=== PATIENT | female | born 1940 | race Caucasian/White ===

== ENCOUNTER → 2017-02-20 | Outpatient (CLI) | payer MEDICARE, OTHER ==
[2017-02-20 14:34] LABS: PROTHROMBIN TIME 12.4 SEC (11.4-15.4)
[2017-02-20 14:35] LABS: ABSOLUTE EOSINOPHILS # (AUTO) 0.1 10^3/uL (0.0-0.6); ABSOLUTE LYMPHOCYTES (AUTO) 1.8 10^3/uL (0.5-4.7); ABSOLUTE MONOCYTES (AUTO) 0.3 10^3/uL (0.1-1.4); BASOPHILS % (AUTO) 0.7 % (0-2); EOSINOPHILS % (AUTO) 1.3 % (0-6); HEMATOCRIT 38.7 % (36.0-47.0); HEMOGLOBIN 12.8 g/dL (12.0-15.5); HGB HCT DIFFERENCE -0.3; LYMPHOCYTES % (AUTO) 34.1 % (13-45); MEAN CORPUSCULAR HEMOGLOBIN 29.1 pg (27.0-33.4); MEAN CORPUSCULAR HGB CONC 33.1 g/dL (32.0-36.0); MEAN CORPUSCULAR VOLUME 88 fl (80-97); MONOCYTES % (AUTO) 5.2 % (3-13); RED CELL DISTRIBUTION WIDTH 14.9 % (11.5-14.0); SEGMENTED NEUTROPHILS % (AUTO) 58.7 % (42-78); WHITE BLOOD COUNT 5.2 10^3/uL (4.0-10.5)
[2017-02-20 14:51] LABS: ANION GAP 12 (5-19); BLOOD UREA NITROGEN 20 mg/dL (7-20); CALCIUM 10.1 mg/dL (8.4-10.2); CARBON DIOXIDE 28 mmol/L (22-30); CHLORIDE 101 mmol/L (98-107); CREATININE RESULT 0.91 mg/dL (0.52-1.25); GLUCOSE 78 mg/dL (75-110); MAGNESIUM 1.7 mg/dL (1.6-2.3); POTASSIUM 4.2 mmol/L (3.6-5.0); SODIUM 141.4 mmol/L (137-145)
== END ==
LOC: OD 13:08
PROVIDERS: ATTEND Internal Medicine Cardiovascular Disease
DX: I65.29 Occlusion and stenosis of unspecified carotid artery (principal)
CPT/HCPCS: 80048; 83735; 85025; 85610

== ENCOUNTER → 2017-03-30 | Outpatient (CLI) | payer MEDICARE, OTHER ==
--- NOTE | 2017-03-30 12:44 | WOMENS IMAGING REPORT ---
EXAM DESCRIPTION: 3D SCREENING MAMMO RIGHT COMPLETED DATE/TIME: 03/30/2017 11:53 am REASON FOR STUDY: 3D ROUTINE SCREENING; Z12.31 Z12.31 ENCNTR SCREEN MAMMOGRAM FOR MALIGNANT NEOPLAS M OF BERTO COMPARISON: Multiple since 2008 TECHNIQUE: Standard craniocaudal and mediolateral oblique views of the right breast recorded using d igital acquisition and breast tomosynthesis. Post left mastectomy in 2004 LIMITATIONS: None. FINDINGS: BREAST: Right No worrisome masses, calcifications or architectural distortion. No areas of suspicion. Benign arter ial vascular calcifications and breast parenchymal calcifications are present. Read with the assistance of CAD. .[facility] - R2 Cenova Version 1.3 .[facility] - R2 Cenova Version 1.3 .[facility] - R2 Cenova Version 2.4 .[facility] - R2 Cenova Version 2.4 .[facility] - R2 [employer] Casting Machine Setup Operator Version 9.2 IMPRESSION: NORMAL MAMMOGRAM. BIRADS 1. BREAST DENSITY: b. There are scattered areas of fibroglandular density. BIRAD: 1 Negative RECOMMENDATION: RECOMMENDATION: ROUTINE SCREENING. Please continue yearly screening tomosynthesis in March 2018 COMMENT: The patient has been notified of the results by letter per MQSA requirements. Additional no tification policies are in place for contacting patient with suspicious or incomplete findings. Quality ID #[id number]: The [employer] recommends an annual screening mammogram for women aged 40 years or over. This facility utilizes a reminder system to ensure that all patients receive reminder letters, and/or direct phone calls for appointments. This includes reminders for routine scr eening mammograms, diagnostic mammograms, or other Breast Imaging Interventions when appropriate. Th is patient will be placed in the appropriate reminder system. The [employer] (ACR) has developed recommendations for screening MRI of the breast s in certain patient populations, to be used in conjunction with mammography. Breast MRI surveillance may be appropriate for women with more than 20% lifetime risk of developing breast cancer as determi hector by genetic testing, significant family history of the disease, or history of mantle radiation for Hodgkins Disease. ACR Practice Guidelines 2008. DBT Technology DBT is a type of tomographic mammography. With conventional mammography, overlapping breast tissue ma y make lesions difficult to detect, even with good compression. DBT uses an x-ray tube that rotates a round the breast, taking images at different angles. These images are then combined to create thin sl ices of the breast that the radiologist can view as a 3D reconstruction. The Hologic unit can perform full-field digital mammograms (2D imaging); or DBT (3D imaging); or both, in a combination mode that quickly performs both the mammogram and the tomosynthesis scan while the breast is still compressed. RS 6045F: Fluoroscopic imaging is not utilized for breast tomosynthesis. TECHNICAL DOCUMENTATION: FINDING NUMBER: (1) ASSESSMENT: (1) JOB ID: [id number] [employer]- All Rights Reserved
== END ==
LOC: WI 11:35
PROVIDERS: ATTEND Internal Medicine Medical Oncology
DX: Z12.31 Encounter for screening mammogram for malignant neoplasm of breast (principal)
CPT/HCPCS: 77063; G0202

== ENCOUNTER 2018-02-12 15:31 | Inpatient (IN) | payer MEDICARE, OTHER ==
[2018-02-12] MEDS ORDERED: NORMAL SALINE 500 ML IV ONE (16:10)
[2018-02-12 16:23] LABS: VENOUS BLOOD BASE EXCESS 0.1 mmol/L; VENOUS BLOOD HCO3 23.6 mmol/L (20-32); VENOUS BLOOD PCO2 34.9 mmHg (35-63); VENOUS BLOOD PH 7.45 (7.30-7.42)
[2018-02-12 16:25] LABS: ABSOLUTE LYMPHOCYTES (AUTO) 0.7 10^3/uL (0.5-4.7); ABSOLUTE MONOCYTES (AUTO) 0.4 10^3/uL (0.1-1.4); ABSOLUTE NEUT (AUTO) 6.6 10^3/uL (1.7-8.2); BASOPHILS % (AUTO) 0.2 % (0-2); EOSINOPHILS % (AUTO) 0.1 % (0-6); HEMOGLOBIN 12.7 g/dL (12.0-15.5); LYMPHOCYTES % (AUTO) 9.3 % (13-45); MEAN CORPUSCULAR HEMOGLOBIN 30.1 pg (27.0-33.4); MEAN CORPUSCULAR HGB CONC 33.4 g/dL (32.0-36.0); MEAN CORPUSCULAR VOLUME 90 fl (80-97); MONOCYTES % (AUTO) 4.6 % (3-13); PLATELET COUNT 141 10^3/uL (150-450); RED BLOOD COUNT 4.21 10^6/uL (3.72-5.28); RED CELL DISTRIBUTION WIDTH 15.6 % (11.5-14.0); SEGMENTED NEUTROPHILS % (AUTO) 85.8 % (42-78); TOTAL CELLS COUNTED % (AUTO) 100 %; WHITE BLOOD COUNT 7.7 10^3/uL (4.0-10.5)
[2018-02-12 16:29] LABS: ALANINE AMINOTRANSFERASE 32 U/L (9-52); ALBUMIN 3.9 g/dL (3.5-5.0); ALKALINE PHOSPHATASE 74 U/L (38-126); ANION GAP 16 (5-19); ASPARTATE AMINO TRANSFERASE 28 U/L (14-36); BILIRUBIN,DIRECT 0.4 mg/dL (0.0-0.4); BILIRUBIN,TOTAL 0.8 mg/dL (0.2-1.3); BLOOD UREA NITROGEN 23 mg/dL (7-20); CALCIUM 9.8 mg/dL (8.4-10.2); CARBON DIOXIDE 24 mmol/L (22-30); CHLORIDE 100 mmol/L (98-107); GLUCOSE 196 mg/dL (75-110); POTASSIUM 3.5 mmol/L (3.6-5.0); SODIUM 140.1 mmol/L (137-145); TOTAL PROTEIN 6.5 g/dL (6.3-8.2)
[2018-02-12] MEDS ORDERED: NORMAL SALINE 1000 ML 1,000 ML IV ONE (16:33)
--- NOTE | 2018-02-12 16:42 | RADIOLOGY REPORT (SQ) ---
EXAM DESCRIPTION: CHEST SINGLE VIEW COMPLETED DATE/TIME: 02/12/2018 4:32 pm REASON FOR STUDY: fever COMPARISON: 11/20/2013 EXAM PARAMETERS: NUMBER OF VIEWS: One view. TECHNIQUE: Single frontal radiographic view of the chest acquired. RADIATION DOSE: NA LIMITATIONS: None. FINDINGS: LUNGS AND PLEURA: No opacities, masses or pneumothorax. No pleural effusion. MEDIASTINUM AND HILAR STRUCTURES: No masses. Contour normal. HEART AND VASCULAR STRUCTURES: Heart normal in size. Normal vasculature. BONES: No acute findings. HARDWARE: None in the chest. OTHER: No other significant finding. IMPRESSION: NO ACUTE RADIOGRAPHIC FINDING IN THE CHEST. TECHNICAL DOCUMENTATION: JOB ID: [id number] [employer]- All Rights Reserved Reading location - IP/workstation name: [email or web address]
[2018-02-12 16:46] LABS: INTERNATIONAL RATION (INR) 0.97; PROTHROMBIN TIME 13.3 SEC (11.4-15.4)
[2018-02-12 16:57] LABS: APPEARANCE,URINE SLIGHTLY-CLOUDY; BILIRUBIN,URINE NEGATIVE (NEGATIVE); COLOR,URINE AMBER; GLUCOSE, URINE NEGATIVE (NEGATIVE); KETONES,URINE NEGATIVE (NEGATIVE); LEUKOCYTE ESTERASE,URINE NEGATIVE (NEGATIVE); NITRITE,URINE NEGATIVE (NEGATIVE); PROTEIN,URINE NEGATIVE (NEGATIVE); URINE SPECIFIC GRAVITY 1.023
[2018-02-12] MEDS ORDERED: IPRATROPIUM/ALBUTEROL 0.5-2.5 MG/3 ML AMPUL NEB ONE (17:48)
[2018-02-12] MEDS ORDERED: LEVOFLOXACIN 500 MG/D5W RTU 500 MG/100 ML RTUPB IV ONE (17:54)
[2018-02-12] MEDS ORDERED: ACETAMINOPHEN 325 MG TABLET PO PRN (18:25)
--- NOTE | 2018-02-12 18:31 | RADIOLOGY REPORT (SQ) ---
EXAM DESCRIPTION: CTA CHEST COMPLETED DATE/TIME: 02/12/2018 6:10 pm REASON FOR STUDY: fever sob requiring o2 COMPARISON: None. TECHNIQUE: CT scan of the chest performed using helical scanning technique with dynamic intravenous contrast injection. Images reviewed with lung, soft tissue and bone windows. Reconstructed coronal and sagittal MPR images reviewed. Additional 3 dimensional post-processing performed to develop Maximal Intensity Projection images ([place] P). All images stored on PACS. All CT scanners at this facility use dose modulation, iterative reconstruction, and/or weight based d osing when appropriate to reduce radiation dose to as low as reasonably achievable (ALARA). [facility]: Dose Right [facility]: CareDose [facility]: Dose Right [facility]: Teradose 4D [facility]: SEVENROOMS CONTRAST TYPE AND DOSE: contrast/concentration: Isovue 370.00 mg/ml; Total Contrast Delivered: 77.0 ml; Total Saline Delivered: 80.0 ml 77 mL Isovue 370- low osmolar. Contrast bolus adequate for pulmonary arteries and aorta. RENAL FUNCTION: Creatinine 0.88 RADIATION DOSE: CT Rad equipment meets quality standard of care and radiation dose reduction techniq ues were employed. CTDIvol: 22.7 - 33.1 mGy. DLP: 807 mGy-cm. . LIMITATIONS: None. FINDINGS: LUNGS AND PLEURA: Minimal right upper lobe atelectasis. Dependent atelectasis. Minimal l eft upper lobe opacity -probably chronic. No masses. No pleural effusions. Mild to moderate emphys ematous change predominately upper lobes. AORTA AND GREAT VESSELS: No aneurysm. No dissection. HEART: No pericardial effusion. No significant coronary artery calcifications. PULMONARY ARTERIES: No emboli visualized in the main pulmonary arteries or the segmental branches. HILAR AND MEDIASTINAL STRUCTURES: No identified masses or abnormal nodes. HARDWARE: None in the chest. UPPER ABDOMEN: Small right adrenal mass -probably adenoma. THYROID AND OTHER SOFT TISSUES: Asymmetrical enlargement of the right lobe. Possible nodule. BONES: No acute or significant finding. 3D MIPS: Confirm above findings. OTHER: Status post left mastectomy. IMPRESSION: No pulmonary emboli or aortic aneurysm. Minimal pulmonary changes as described above. Mild to moderate emphysematous change. COMMENT: Quality ID # [id number]: Final reports with documentation of one or more dose reduction techniques (e.g., Automated exposure control, adjustment of the mA and/or kV according to patient size, use of iterative reconstruction technique) TECHNICAL DOCUMENTATION: JOB ID: [id number] [employer]- All Rights Reserved Reading location - IP/workstation name: [email or web address]
--- NOTE | 2018-02-12 18:40 | ER Document Report ---
ED General - General Chief Complaint: Fever Stated Complaint: FEVER/WEAKNESS Time Seen by Provider: 02/12/18 15:56 TRAVEL OUTSIDE OF THE [place] IN LAST 30 DAYS: No - HPI Patient complains to provider of: Fever weakness shortness of breath Notes: Patient coming in for fever weakness shortness of breath. Patient states symptoms ongoing for greater than a week patient feels like she is congested in her chest called EMS today upon EMS arrival was found to have temperature greater than 102 was given Tylenol transferred to the ER for further evaluation patient denies being evaluated by her primary care physician for this patient denies any smoking however states that she used to smoke for approximately 30- 40 years. Patient does deny any history of COPD or asthma to myself. Patient says she has been having some night sweats. No recent travel no recent trauma. When off oxygen patient's oxygen saturation is 8788%. With 2 L of oxygen and this does improve to 95%. - Related Data Allergies/Adverse Reactions: No Known Drug Allergies Allergy (Verified 02/12/18 16:26) surgical tape Allergy (Severe, Uncoded 02/12/18 16:26) blisters,pulls skin off Past Medical History - Social History Smoking Status: Former Smoker Frequency of alcohol use: None Drug Abuse: None Family History: Reviewed & Not Pertinent Patient has suicidal ideation: No Patient has homicidal ideation: No - Past Medical History Cardiac Medical History: Reports: Hx Hypercholesterolemia, Hx Hypertension Denies: Hx Atrial Fibrillation, Hx Congestive Heart Failure, Hx Coronary Artery Disease, Hx Heart Attack, Hx Peripheral Vascular Disease, Hx Pulmonary Embolism, Hx Heart Murmur Pulmonary Medical History: Denies: Hx Asthma, Hx Bronchitis, Hx COPD, Hx Pneumonia, Hx Respiratory Failure, Hx Sleep Apnea, Hx Tuberculosis Neurological Medical History: Denies: Hx Cerebrovascular Accident, Hx Seizures Endocrine Medical History: Denies: Hx Graves' Disease, Hx Hyperthyroidism, Hx Hypothyroidism Renal/ Medical History: Denies: Hx Ovarian Cysts, Hx Peritoneal Dialysis, Hx Pelvic Inflammatory Disease Malignancy Medical History: Reports: Hx Breast Cancer - lt masectomy NO IV BP LEFT arm. Denies: Hx Cervical Cancer, Hx Leukemia, Hx Lung Cancer, Hx Ovarian Cancer GI Medical History: Denies: Hx Crohn's Disease, Hx Gastroesophageal Reflux Disease, Hx Hiatal Hernia, Hx Irritable Bowel, Hx Liver Failure, Hx Pancreatitis , Hx Ulcer Musculoskeltal Medical History: Reports Hx Arthritis - all joints, Denies Hx Fibromyalgia, Denies Hx Muscular Dystrophy Psychiatric Medical History: Denies: Hx Bipolar Disorder, Hx Depression, Hx Post Traumatic Stress Disorder , Hx Schizophrenia Traumatic Medical History: Denies: Hx Fractures Infectious Medical History: Denies: Hx HIV Past Surgical History: Reports: Hx Cholecystectomy, Hx Mastectomy - left, Hx Orthopedic Surgery - b/l knees, back surgery. Denies: Hx Appendectomy, Hx Bowel Surgery, Hx Section, Hx Colostomy, Hx Coronary Artery Bypass Graft, Hx Gastric Bypass Surgery, Hx Herniorrhaphy, Hx Hysterectomy, Hx Pacemaker, Hx Tonsillectomy, Hx Tubal Ligation - Immunizations Hx Diphtheria, Pertussis, Tetanus Vaccination: - unsure Hx Pneumococcal Vaccination: 08/27/05 Review of Systems - Review of Systems Constitutional: Fever, Weakness EENT: No symptoms reported Cardiovascular: No symptoms reported Respiratory: Cough, Short of breath, Sputum Gastrointestinal: No symptoms reported Genitourinary: No symptoms reported Female Genitourinary: No symptoms reported Musculoskeletal: No symptoms reported Skin: No symptoms reported Hematologic/Lymphatic: No symptoms reported Neurological/Psychological: No symptoms reported -: Yes All other systems reviewed and negative Physical Exam - Vital signs Vitals: Temp Pulse Resp BP Pulse Ox 100.0 F 112 H 20 112/62 91 L 02/12/18 15:34 02/12/18 15:34 02/12/18 15:34 02/12/18 15:34 02/12/18 15:34 Interpretation: Tachycardic - General General appearance: Appears well, Alert - HEENT Head: Normocephalic, Atraumatic Eyes: Normal Pupils: PERRL - Respiratory Respiratory status: No respiratory distress Chest status: Nontender Breath sounds: Rhonchi, Wheezing Chest palpation: Normal - Cardiovascular Rhythm: Regular Heart sounds: Normal auscultation Murmur: No - Abdominal Inspection: Normal Distension: No distension Bowel sounds: Normal Tenderness: Nontender Organomegaly: No organomegaly - Back Back: Normal, Nontender - Extremities General upper extremity: Normal inspection, Nontender, Normal color, Normal ROM , Normal temperature General lower extremity: Normal inspection, Nontender, Normal color, Normal ROM , Normal temperature, Normal weight bearing. No: Rosa's sign - Neurological Neuro grossly intact: Yes Cognition: Normal Orientation: AAOx4 Ashly Coma Scale Eye Opening: Spontaneous Ashly Coma Scale Verbal: Oriented [place] Coma Scale Motor: Obeys Commands Ashly Coma Scale Total: 15 Speech: Normal Motor strength normal: LUE, RUE, LLE, RLE Sensory: Normal - Psychological Associated symptoms: Normal affect, Normal mood - Skin Skin Temperature: Warm Skin Moisture: Dry Skin Color: Normal Course - Re-evaluation Re-evalutation: 02/12/18 22:40 Temperature did approve here in ER. Patient continued to require 2 L of oxygen to keep her oxygen saturation above 90%. Concern for underlying pneumonia although the patient does not have a white count and patient did not have any signs of this on a chest x-ray did move forward with admission to the hospital CTA was also obtained showing no signs of pulmonary emboli but also infiltrates / opacities acute versus chronic - Vital Signs Vital signs: Temp Pulse Resp BP Pulse Ox 100.0 F 112 H 16 147/54 H 96 02/12/18 15:34 02/12/18 15:34 02/12/18 21:00 02/12/18 19:38 02/12/18 21:00 - Laboratory Result Diagrams: 02/12/18 15:44 02/12/18 15:44 Laboratory results interpreted by me: 02/12/18 02/12/18 02/12/18 15:44 15:44 15:44 RDW 15.6 H Plt Count 141 L Seg Neutrophils % 85.8 H Lymphocytes % 9.3 L VBG pH VBG pCO2 Potassium 3.5 L BUN 23 H Glucose 196 H POC Glucose Lactic Acid 3.6 H Urine Blood Urine Urobilinogen 02/12/18 02/12/18 02/12/18 15:44 16:19 16:34 RDW Plt Count Seg Neutrophils % Lymphocytes % VBG pH 7.45 H VBG pCO2 34.9 L Potassium BUN Glucose POC Glucose 185 H Lactic Acid Urine Blood SMALL H Urine Urobilinogen 2.0 H Discharge - Discharge Clinical Impression: Hypoxemia, Elevated lactic acid level Fever Qualifiers: Fever type: unspecified Qualified Code(s): R50.9 - Fever, unspecified Pneumonia Qualifiers: Pneumonia type: due to unspecified organism Laterality: unspecified laterality Lung location: unspecified part of lung Qualified Code(s): J18.9 - Pneumonia, unspecified organism Condition: Good Disposition: ADMITTED OBSERVATION Admitting Provider: [facility] Unit Admitted: Medical Floor Referrals: CLARITZA NAILS MD [Primary Care Provider] - Follow up as needed
--- NOTE | 2018-02-12 18:47 | PDOC H&P ---
History of Present Illness Admission Date/PCP: CLARITZA NAILS MD Patient complains of: Nonproductive cough and fever History of Present Illness: SAVANNAH BOLDEN is a 77 year old female Past Medical History Cardiac Medical History: Reports: Hyperlipidema, Hypertension Denies: Atrial Fibrillation, Congestive Heart Failure, Coronary Artery Disease, Myocardial Infarction, Peripheral Vascular Disease, Pulmonary Embolism , Heart Murmur Pulmonary Medical History: Denies: Asthma, Bronchitis, Chronic Obstructive Pulmonary Disease (COPD), Pneumonia, Respiratory Failure, Sleep Apnea, Tuberculosis Neurological Medical History: Denies: Seizures Endocrine Medical History: Denies: Hyperthyroidism, Hypothyroidism Malignancy Medical History: Reports: Breast Cancer - lt masectomy NO IV BP LEFT arm Denies: Cervical Cancer, Leukemia, Lung Cancer, Ovarian Cancer GI Medical History: Denies: Crohn's Disease, Gastroesophageal Reflux Disease, Hiatal Hernia Musculoskeltal Medical History: Reports: Arthritis - all joints Denies: Fibromyalgia Psychiatric Medical History: Denies: Bipolar Disorder, Depression, Post Traumatic Stress Disorder Hematology: Denies: Anemia, Hemophilia, Sickle Cell Disease Infectious Medical History: Denies: HIV Past Surgical History Past Surgical History: Reports: Cholecystectomy, Mastectomy - left, Orthopedic Surgery - b/l knees, back surgery Denies: Amputation, Appendectomy, Section, Colostomy, Coronary Artery Bypass Graft, Gastric Bypass Surgery, Herniorrhaphy, Hysterectomy, Pacemaker, Tonsillectomy, Tubal Ligation Social History Smoking Status: Former Smoker Hx Recreational Drug Use: No Hx Prescription Drug Abuse: No Family History Family History: Other - Noncontributory Parental Family History Reviewed: Yes - Noncontributory Children Family History Reviewed: Yes - Noncontributory Sibling(s) Family History Reviewed.: Yes - Noncontributory Medication/Allergy Allergies/Adverse Reactions: No Known Drug Allergies Allergy (Verified 02/12/18 16:26) surgical tape Allergy (Severe, Uncoded 02/12/18 16:26) blisters,pulls skin off Review of Systems Review of Systems: 10 point review of systems is conducted with the patient was negative except as noted in HPI Physical Exam Vital Signs: Temp Pulse Resp BP Pulse Ox 100.0 F 112 H 13 125/58 L 95 02/12/18 15:34 02/12/18 15:34 02/12/18 18:11 02/12/18 17:01 06/19/18 18:11 Intake & Output 02/11/18 02/12/18 02/13/18 06:59 06:59 06:59 Weight 90.718 kg General appearance: PRESENT: no acute distress, cooperative, disheveled, obese Head exam: PRESENT: atraumatic, normocephalic Mouth exam: PRESENT: moist, neck supple, tongue midline Throat exam: ABSENT: post pharyngeal erythema, tonsillar erythema, tonsillar exudate Neck exam: PRESENT: full ROM. ABSENT: carotid bruit, JVD, lymphadenopathy, tenderness, thyromegaly Respiratory exam: PRESENT: clear to auscultation herminia, unlabored. ABSENT: accessory muscle use, chest wall tenderness, crackles, rales, rhonchi, wheezes Cardiovascular exam: PRESENT: RRR. ABSENT: clicks, diastolic murmur, gallop, systolic murmur Pulses: PRESENT: normal carotid pulses, normal radial pulses, normal dorsalis pedis pul Vascular exam: PRESENT: normal capillary refill GI/Abdominal exam: PRESENT: normal bowel sounds, soft. ABSENT: ascites, distended, guarding, rebound, tenderness Rectal exam: PRESENT: deferred Extremities exam: ABSENT: pedal edema Musculoskeletal exam: PRESENT: full ROM, normal inspection. ABSENT: deformity Neurological exam: PRESENT: alert, awake, oriented to person, oriented to place , oriented to time, CN II-XII grossly intact Psychiatric exam: PRESENT: appropriate affect, normal mood Skin exam: PRESENT: dry, warm Results Laboratory Results: 02/12/18 15:44 02/12/18 15:44 02/12/18 02/12/18 02/12/18 15:44 15:44 15:44 WBC 7.7 RBC 4.21 Hgb 12.7 Hct 38.0 MCV 90 MCH 30.1 MCHC 33.4 RDW 15.6 H Plt Count 141 L Seg Neutrophils % 85.8 H Lymphocytes % 9.3 L Monocytes % 4.6 Eosinophils % 0.1 Basophils % 0.2 Absolute Neutrophils 6.6 Absolute Lymphocytes 0.7 Absolute Monocytes 0.4 Absolute Eosinophils 0.0 Absolute Basophils 0.0 VBG pH VBG pCO2 VBG HCO3 VBG Base Excess Sodium 140.1 Potassium 3.5 L Chloride 100 Carbon Dioxide 24 Anion Gap 16 BUN 23 H Creatinine 0.88 Est GFR ( Amer) > 60 Est GFR (Non-Af Amer) > 60 Glucose 196 H Lactic Acid 3.6 H Calcium 9.8 Total Bilirubin 0.8 AST 28 ALT 32 Alkaline Phosphatase 74 Total Protein 6.5 Albumin 3.9 Urine Color Urine Appearance Urine pH Ur Specific [place] Urine Protein Urine Glucose (UA) Urine Ketones Urine Blood Urine Nitrite Ur Leukocyte Esterase Urine WBC (Auto) Urine RBC (Auto) 02/12/18 02/12/18 15:44 16:34 WBC RBC Hgb Hct MCV MCH MCHC RDW Plt Count Seg Neutrophils % Lymphocytes % Monocytes % Eosinophils % Basophils % Absolute Neutrophils Absolute Lymphocytes Absolute Monocytes Absolute Eosinophils Absolute Basophils VBG pH 7.45 H VBG pCO2 34.9 L VBG HCO3 23.6 VBG Base Excess 0.1 Sodium Potassium Chloride Carbon Dioxide Anion Gap BUN Creatinine Est GFR ( Amer) Est GFR (Non-Af Amer) Glucose Lactic Acid Calcium Total Bilirubin AST ALT Alkaline Phosphatase Total Protein Albumin Urine Color PAIGE Urine Appearance SLIGHTLY-CLOUDY Urine pH 5.0 Ur Specific [place] 1.023 Urine Protein NEGATIVE Urine Glucose (UA) NEGATIVE Urine Ketones NEGATIVE Urine Blood SMALL H Urine Nitrite NEGATIVE Ur Leukocyte Esterase NEGATIVE Urine WBC (Auto) 1 Urine RBC (Auto) 5 02/12/18 02/12/18 15:44 15:44 Creatine Kinase 89 Troponin I < 0.012 Impressions: Chest X-Ray 02/12/18 15:59 IMPRESSION: NO ACUTE RADIOGRAPHIC FINDING IN THE CHEST. Chest/Abdomen CTA 02/12/18 17:47 IMPRESSION: No pulmonary emboli or aortic aneurysm. Minimal pulmonary changes as described above. Mild to moderate emphysematous change. Assessment & Plan - Diagnosis (1) Sepsis Qualifiers: Sepsis type: sepsis due to unspecified organism Qualified Code(s): A41.9 - Sepsis, unspecified organism Is this a current diagnosis for this admission?: Yes Plan: IV fluid support. Hemodynamics are stable. Antibiotics have been started. We will watch her on telemetry. (2) Pneumonia Qualifiers: Pneumonia type: due to unspecified organism Lung location: unspecified part of lung Is this a current diagnosis for this admission?: Yes Plan: Blood cultures pending. Levaquin started. (3) Hypoxemia Is this a current diagnosis for this admission?: Yes Plan: She had one low SPO2 of 87%. I think that this is essentially resolved. She was 98% on 2 L and talking freely and easily whenever I saw her. We will wean her oxygen and see how she does later on this evening. - Time Time Spent: 50 to 70 Minutes Medications reviewed and adjusted accordingly: Yes Anticipated discharge: Home Within: within 48 hours - Inpatient Certification Based on my medical assessment, after consideration of the patient's comorbidities, presenting symptoms, or acuity I expect that the services needed warrant INPATIENT care.: Yes I certify that my determination is in accordance with my understanding of Medicare's requirements for reasonable and necessary INPATIENT services [42 CFR 412.3e].: Yes Medical Necessity: Need Close Monitoring Due to Risk of Patient Decompensation
[2018-02-12] MEDS ORDERED: ENOXAPARIN SODIUM INJ 40 MG/0.4 ML DISP.SYRIN SUBCUT ONE (20:00)
[2018-02-12] MEDS ORDERED: ATORVASTATIN CALCIUM 20 MG TABLET PO SCH (22:00)
--- NOTE | 2018-02-12 22:54 | EKG REPORT ---
SEVERITY:- OTHERWISE NORMAL ECG - SINUS TACHYCARDIA : Confirmed by: Diane Sandhu 12-Feb-2018 22:54:13
[2018-02-12] MEDS: FAMOTIDINE 20 MG TABLET PO SCH (23:04)
[2018-02-12] MEDS: GUAIFENESIN 600 MG TABLET.SA PO SCH (23:06)
[2018-02-13 05:20] LABS: HEMATOCRIT 34.6 % (36.0-47.0); HEMOGLOBIN 11.6 g/dL (12.0-15.5); MEAN CORPUSCULAR HEMOGLOBIN 30.5 pg (27.0-33.4); MEAN CORPUSCULAR HGB CONC 33.6 g/dL (32.0-36.0); MEAN CORPUSCULAR VOLUME 91 fl (80-97); PLATELET COUNT 115 10^3/uL (150-450); RED BLOOD COUNT 3.81 10^6/uL (3.72-5.28); RED CELL DISTRIBUTION WIDTH 15.6 % (11.5-14.0)
[2018-02-13 05:43] LABS: ANION GAP 10 (5-19); BLOOD UREA NITROGEN 20 mg/dL (7-20); CALCIUM 9.4 mg/dL (8.4-10.2); CARBON DIOXIDE 27 mmol/L (22-30); CHLORIDE 105 mmol/L (98-107); GLUCOSE 121 mg/dL (75-110); POTASSIUM 3.3 mmol/L (3.6-5.0); SODIUM 142.2 mmol/L (137-145)
[2018-02-13] MEDS ORDERED: GLIMEPIRIDE 1 MG TABLET PO SCH (08:00)
[2018-02-13] MEDS: FAMOTIDINE 20 MG TABLET PO SCH (09:20)
[2018-02-13] MEDS: CALCIUM CARBONATE 250 MG/VITAMIN D3 125 UNIT TABLET PO SCH ×2 (09:20→17:28)
[2018-02-13] MEDS: GUAIFENESIN 600 MG TABLET.SA PO SCH (09:20)
[2018-02-13] MEDS: METFORMIN HCL 500 MG TABLET PO SCH ×2 (09:20→17:28)
[2018-02-13] MEDS ORDERED: ENOXAPARIN SODIUM INJ 40 MG/0.4 ML DISP.SYRIN SUBCUT SCH (10:00)
[2018-02-13] MEDS ORDERED: (PENDING PHARMACY ID) (Calcium Carbonate/Vitamin D3 [Calcium 600-Vit D3 200 Tablet] 1 EACH PO SCH (10:00)
[2018-02-13] MEDS ORDERED: LEVOFLOXACIN 750 MG TABLET PO SCH (10:00)
[2018-02-13] MEDS ORDERED: ASPIRIN 81 MG TABLET, ENT COATED PO SCH (10:00)
[2018-02-13 12:02] VITALS: BP 153/79
--- NOTE | 2018-02-13 20:07 | PDOC DISCHARGE SUMMARY ---
General - Admit/Disc Date/PCP Admission Date/Primary Care Provider: 02/12/18 19:02 CLARITZA NAILS MD Discharge Date: 02/13/18 - Discharge Diagnosis (1) Sepsis Is this a current diagnosis for this admission?: Yes Summary: She had a fever and some tachypnea whenever she came in. This resolved very quickly. (2) Pneumonia Is this a current diagnosis for this admission?: Yes Summary: She was placed on oral Levaquin and she was afebrile after she initially presented to the hospital. She will continue course of Levaquin as an outpatient. (3) Hypoxemia Is this a current diagnosis for this admission?: Yes Summary: This promptly resolved. She had one hypoxemic episode in the ER and we took her off oxygen this morning and she did a 6 minute walk in her pulse was in the 80s while walking and her SPO2 was 94-95% also while walking. - Additional Information Discharge Diet: Other (Comments) Discharge Activity: Activity As Tolerated Prescriptions: Levofloxacin [Levaquin 750 mg Tablet] 750 mg PO DAILY #5 tablet Home Medications: Aspirin [Aspirin 81 mg Chewable Tablet] 81 mg PO DAILY 02/12/18 Calcium Carbonate/Vitamin D3 [Calcium 600-Vit D3 800 Tablet] 1 tab PO BID Carvedilol [Coreg 6.25 mg Tablet] 6.25 mg PO Q12 02/12/18 Gabapentin [Neurontin] 800 mg PO Q8 02/12/18 Glimepiride [Amaryl 1 mg Tablet] 1 mg PO QAM 02/12/18 Isosorbide Mononitrate [Isosorbide Mononitrate ER] 30 mg PO DAILY 02/12/18 Meloxicam [Mobic] 15 mg PO DAILYP PRN 02/12/18 Metformin HCl [Glucophage 500 mg Tablet] 1,000 mg PO BIDACBS 02/12/18 Multivitamin [Multiple Vitamins] 1 tab PO DAILY 02/12/18 Nifedipine [Nifedipine ER] 30 mg PO DAILY 02/12/18 Pravastatin Sodium [Pravachol] 80 mg PO QHS 02/12/18 Telmisartan/Hydrochlorothiazid [Telmisartan-Hctz 80-25 mg Tab] 1 tab PO DAILY Guaifenesin [Mucinex Sr 600 mg Tablet.sa] 600 mg PO Q12 tablet.sa 02/13/18 Levofloxacin [Levaquin 750 mg Tablet] 750 mg PO DAILY #5 tablet 02/13/18 History of Present Illness History of Present Illness: SAVANNAH BOLDEN is a 77 year old female Hospital Course Hospital Course: She was admitted and placed on oral Levaquin. She had a dose of some IV antibiotics in the emergency department prior to that. She progressed rather well. She was able to ambulate in the hallway and she did not get hypoxemic or dyspneic. She will complete a course of oral antibiotics at home. Her labs and examination was reassuring and she was discharged home today in good condition. Physical Exam Vital Signs: Temp Pulse Resp BP Pulse Ox 98.1 F 73 18 153/79 H 98 02/13/18 17:59 02/13/18 17:59 02/13/18 17:59 02/13/18 17:59 02/13/18 17:59 Intake & Output 02/12/18 02/13/18 02/14/18 06:59 06:59 06:59 Intake Total 10 Output Total 2 Balance -2 10 Weight 88.9 kg General appearance: PRESENT: no acute distress, well-developed, well-nourished Respiratory exam: PRESENT: clear to auscultation herminia. ABSENT: rales, rhonchi, wheezes Cardiovascular exam: PRESENT: RRR. ABSENT: diastolic murmur, rubs, systolic murmur GI/Abdominal exam: PRESENT: normal bowel sounds, soft. ABSENT: distended, guarding, mass, organolmegaly, rebound, tenderness Extremities exam: PRESENT: full ROM. ABSENT: calf tenderness, clubbing, pedal edema Neurological exam: PRESENT: alert, awake, oriented to person, oriented to place , oriented to time Results Laboratory Results: 02/13/18 05:05 02/13/18 05:05 02/12/18 02/13/18 02/13/18 20:08 05:05 05:05 WBC 7.0 RBC 3.81 Hgb 11.6 L Hct 34.6 L MCV 91 MCH 30.5 MCHC 33.6 RDW 15.6 H Plt Count 115 L Sodium 142.2 Potassium 3.3 L Chloride 105 Carbon Dioxide 27 Anion Gap 10 BUN 20 Creatinine 0.79 Est GFR ( Amer) > 60 Est GFR (Non-Af Amer) > 60 Glucose 121 H Lactic Acid 1.8 Calcium 9.4 Impressions: Chest X-Ray 02/12/18 15:59 IMPRESSION: NO ACUTE RADIOGRAPHIC FINDING IN THE CHEST. Chest/Abdomen CTA 02/12/18 17:47 IMPRESSION: No pulmonary emboli or aortic aneurysm. Minimal pulmonary changes as described above. Mild to moderate emphysematous change. Qualifiers - * PATIENT BEING DISCHARGED WITH ANY OF THE FOLLOWING DIAGNOSIS: No
--- NOTE | 2018-02-14 12:16 | Physician Advisory Note ---
Physician Advisor ProgressNote .: Pursuant to the plan for [facility], I have reviewed the medical record for this patient. Physician Advisor Statement: Please consider documenting, if you agree: 1. "possible sepsis, DUE TO , evidenced by " - or "sepsis suspected initially but ruled out"? (See below, under line.) - pt had initial temp 102 for EMS, weakness, tachycardia, lactate 3.6, plts <150, (+)hypoxemia; lowest MAP=78. 2. "probable acute pneumonia, suspect gram-____ type, evidenced by " (Also, please explain why you feel PNA (as opposed to other process such as "acute bronchitis") was present despite no leukocytosis and CT report reading that the ANN "opacity" was "probably chronic", because payers like to point to info such as this & say they don't think pt was proved to have PNA after all, especially since in this sort of case, an attending is unlikely to repeat CXR/CT to "confirm" the clinical dx with pt improving.) - Supporting findings noted so far in chart include cough, SOB, T 102 for EMS, weakness, tachycardia, some tachypnea, persistent hypoxemia; (+) crackles, (+) JAVIER, orthopnea, nausea, & diarrhea per nursing notes (GI sx such as N/V/D are common with PNA). - Clinical picture consistent with acute process. Elderly pts don't always mount a leukocytosis. 3. "mild-mod emphysema, by CT" 4. What was most likely cause(s) of the hypoxemia? (sepsis, or PNA, or emphysema, or acute bronchitis, or ...? 5. "At time of adm, we really felt this pt was going to need at least 2 MNs in hospital due to [suspected sepsis & PNA with underlying emphysema & acute hypoxemia ...?]", and "I was very surprised that pt improved as quickly as she did & was ready for d/c after just 1 MN" (As long as these statements are correct, it is important to state them explicitly in Medicare pts who are brought in as Inpatients but d/c'd after 1MN in hospital; otherwise, Medicare will dispute that they were initially sick enough to be Inpatients.) Thanks so much for your time and help! CK *Sepsis: documentation, treatment, & course should support sepsis diagnosis when it's "ruled in": - Pt should look toxic/acutely sick initially & this be documented; this pt was documented to have "hemodynamics stable" per H&P. - If pt survives and goes home within 2 days, dx of sepsis may not be valid after all, even though it was important to consider it.
== END 2018-02-13 18:44 | disposition home or self-care (01) | DRG 871 ==
LOC: ER 15:31 → OBSVTOIN 19:02 → EH 19:02 → 5 22:46
PROVIDERS: ADMIT Family Medicine; ATTEND Family Medicine
DX: A41.9 Sepsis, unspecified organism (principal); J18.9 Pneumonia, unspecified organism; R09.02 Hypoxemia; E78.00 Pure hypercholesterolemia, unspecified; I10 Essential (primary) hypertension; Z85.3 Personal history of malignant neoplasm of breast
CPT/HCPCS: 36415; 71045; 71275; 80048; 80053; 81001; 82550; 82803; 82962; 83605; 84484; 85025; 85027; 85610; 87040; 87077; 87086; 93005; 93010; 94640; 96361; 96374; 99285; J1650; J1956; J3490; J7030; J7040; J7620

== ENCOUNTER → 2018-04-01 | Outpatient (CLI) | payer MEDICARE, OTHER ==
--- NOTE | 2018-04-01 15:25 | WOMENS IMAGING REPORT ---
EXAM DESCRIPTION: 3D SCREENING MAMMO RIGHT COMPLETED DATE/TIME: 04/01/2018 11:01 am REASON FOR STUDY: SCREENING MAMMO Z12.31 ENCNTR SCREEN MAMMOGRAM FOR MALIGNANT NEOPLASM OF BERTO COMPARISON: Multiple since 2008 TECHNIQUE: Standard craniocaudal and mediolateral oblique views of the right breast recorded using d igital acquisition and breast tomosynthesis. Post left mastectomy in 2004 LIMITATIONS: None. FINDINGS: BREAST: Right No masses, calcifications or architectural distortion. No areas of suspicion. Benign breast parenchy mal and arterial vascular calcifications are present, stable. Read with the assistance of CAD. .[facility] - R2 Cenova Version 1.3 .[facility] - R2 Cenova Version 1.3 .[facility] - R2 Cenova Version 2.4 .[facility] - R2 Cenova Version 2.4 .[facility] - R2 Marble Cutter Version 9.2 IMPRESSION: NORMAL MAMMOGRAM. BIRADS 1. BREAST DENSITY: b. There are scattered areas of fibroglandular density. BIRAD: 1 Negative RECOMMENDATION: RECOMMENDATION: ROUTINE SCREENING. COMMENT: The patient has been notified of the results by letter per SA requirements. Additional no tification policies are in place for contacting patient with suspicious or incomplete findings. Quality ID #[id number]: The [employer] [place] recommends an annual screening mammogram for women aged 40 years or over. This facility utilizes a reminder system to ensure that all patients receive reminder letters, and/or direct phone calls for appointments. This includes reminders for routine scr eening mammograms, diagnostic mammograms, or other Breast Imaging Interventions when appropriate. Th is patient will be placed in the appropriate reminder system. The [employer] [place] [employer] (ACR) has developed recommendations for screening MRI of the breast s in certain patient populations, to be used in conjunction with mammography. Breast MRI surveillance may be appropriate for women with more than 20% lifetime risk of developing breast cancer as determi hector by genetic testing, significant family history of the disease, or history of mantle radiation for Hodgkins Disease. ACR Practice Guidelines 2008. DBT Technology DBT is a type of tomographic mammography. With conventional mammography, overlapping breast tissue ma y make lesions difficult to detect, even with good compression. DBT uses an x-ray tube that rotates a round the breast, taking images at different angles. These images are then combined to create thin sl ices of the breast that the radiologist can view as a 3D reconstruction. The Face to Face Live unit can perform full-field digital mammograms (2D imaging); or DBT (3D imaging); or both, in a combination mode that quickly performs both the mammogram and the tomosynthesis scan while the breast is still compressed. PQRS 6045F: Fluoroscopic imaging is not utilized for breast tomosynthesis. TECHNICAL DOCUMENTATION: FINDING NUMBER: (1) ASSESSMENT: (1) JOB ID: [id number]- All Rights Reserved Reading location - IP/workstation name: [email or web address]
== END ==
LOC: WI 10:37
PROVIDERS: ATTEND Internal Medicine Medical Oncology
DX: Z12.31 Encounter for screening mammogram for malignant neoplasm of breast (principal)

== ENCOUNTER 2018-04-04 18:55 | Inpatient (IN) | payer MEDICARE, OTHER ==
[2018-04-04] MEDS ORDERED: RINGERS SOLUTION,LACTATED 1,000 ML IV ONE (19:32)
[2018-04-04] MEDS ORDERED: METRONIDAZOLE 500 MG/NS RTU 500 MG/100 ML RTUPB IV ONE (19:32)
--- NOTE | 2018-04-04 19:38 | ER Document Report ---
ED Medical Screen (RME) - General Chief Complaint: Abdominal Pain >50 Stated Complaint: ABDOMINAL PAIN Time Seen by Provider: 04/04/18 19:17 Mode of Arrival: Wheelchair Information source: Patient Notes: Patient is a 77-year-old female who presents to the emergency department today after having an outpatient CT abdomen pelvis with IV and oral contrast performed. This was ordered by Dr. Nails. Radiologist is reading the CT as appendicitis. Patient reports that she has been having right lower quadrant abdominal pain for 2 weeks. Patient reports the pain is worse when she lies down. Patient describes the pain as sharp stabbing pain. Patient reports associated nausea, denies any vomiting or fevers. Patient also reports decreased appetite. Patient has past medical history of hypertension, non- insulin-dependent diabetes, breast cancer with a left sided mastectomy. Patient also reports a history of myocardial infarction one year ago while she was in the PACU recovering from back surgery. Patient reports this was at [facility]. I did consult the on-call surgeon Dr. Crump who advises that he will need hospitalist and cardiology consulted on this patient. I will initiate orders up front to include lab workup, initial cardiac workup, IV fluids and antibiotics. Exam: Point tenderness to palpation to right lower quadrant, no rebound. I have greeted and performed a rapid initial assessment of this patient. A comprehensive ED assessment and evaluation of the patient, analysis of test results and completion of the medical decision making process will be conducted by additional ED providers. Dictation of this chart was performed using voice recognition software; therefore, there may be some unintended grammatical errors. TRAVEL OUTSIDE OF THE [place] IN LAST 30 DAYS: No - Related Data Allergies/Adverse Reactions: No Known Drug Allergies Allergy (Verified 04/04/18 18:55) surgical tape Allergy (Severe, Uncoded 04/04/18 18:55) blisters,pulls skin off Past Medical History - Social History Chew tobacco use (# tins/day): No Frequency of alcohol use: None - Past Medical History Cardiac Medical History: Reports: Hx Heart Attack, Hx Hypercholesterolemia, Hx Hypertension Denies: Hx Atrial Fibrillation, Hx Congestive Heart Failure, Hx Coronary Artery Disease, Hx Peripheral Vascular Disease, Hx Pulmonary Embolism, Hx Heart Murmur Pulmonary Medical History: Denies: Hx Asthma, Hx Bronchitis, Hx COPD, Hx Pneumonia, Hx Respiratory Failure, Hx Sleep Apnea, Hx Tuberculosis Neurological Medical History: Denies: Hx Cerebrovascular Accident, Hx Seizures Endocrine Medical History: Reports: Hx Diabetes Mellitus Type 2. Denies: Hx Graves' Disease, Hx Hyperthyroidism, Hx Hypothyroidism Renal/ Medical History: Denies: Hx Ovarian Cysts, Hx Peritoneal Dialysis, Hx Pelvic Inflammatory Disease Malignancy Medical History: Reports: Hx Breast Cancer - lt masectomy NO IV BP LEFT arm. Denies: Hx Cervical Cancer, Hx Leukemia, Hx Lung Cancer, Hx Ovarian Cancer GI Medical History: Denies: Hx Crohn's Disease, Hx Gastroesophageal Reflux Disease, Hx Hiatal Hernia, Hx Irritable Bowel, Hx Liver Failure, Hx Pancreatitis , Hx Ulcer Musculoskeltal Medical History: Reports Hx Arthritis - all joints, Denies Hx Fibromyalgia, Denies Hx Muscular Dystrophy Psychiatric Medical History: Denies: Hx Bipolar Disorder, Hx Depression, Hx Post Traumatic Stress Disorder , Hx Schizophrenia Traumatic Medical History: Denies: Hx Fractures Infectious Medical History: Denies: Hx HIV Past Surgical History: Reports: Hx Cholecystectomy, Hx Mastectomy - left, Hx Orthopedic Surgery - b/l knees, back surgery. Denies: Hx Appendectomy, Hx Bowel Surgery, Hx Section, Hx Colostomy, Hx Coronary Artery Bypass Graft, Hx Gastric Bypass Surgery, Hx Herniorrhaphy, Hx Hysterectomy, Hx Pacemaker, Hx Tonsillectomy, Hx Tubal Ligation - Immunizations Hx Diphtheria, Pertussis, Tetanus Vaccination: - unsure History of Influenza Vaccine for 05/2017 - 10/2017 Season: Yes Influenza Administration Date for 05/2017 - 10/2017 Season: 05/27/17 Physical Exam - Vital signs Vitals: Temp Pulse Resp BP Pulse Ox 98.5 F 88 18 132/62 H 97 04/04/18 19:12 04/04/18 19:12 04/04/18 19:12 04/04/18 19:12 04/04/18 19:12 Course - Vital Signs Vital signs: Temp Pulse Resp BP Pulse Ox 98.5 F 88 18 132/62 H 97 04/04/18 19:12 04/04/18 19:12 04/04/18 19:12 04/04/18 19:12 04/04/18 19:12 Doctor's Discharge - Discharge Referrals: CLARITZA NAILS MD [Primary Care Provider] - Follow up as needed
[2018-04-04] MEDS ORDERED: LEVOFLOXACIN 750 MG/D5W RTU 750 MG/150 ML RTUPB IV ONE (20:00)
--- NOTE | 2018-04-04 21:44 | RADIOLOGY REPORT (SQ) ---
EXAM DESCRIPTION: CHEST 2 VIEWS COMPLETED DATE/TIME: 04/04/2018 8:59 pm REASON FOR STUDY: abd pain/pre-op work-up COMPARISON: 11/20/2013 EXAM PARAMETERS: NUMBER OF VIEWS: two views TECHNIQUE: Digital Frontal and Lateral radiographic views of the chest acquired. RADIATION DOSE: NA LIMITATIONS: none FINDINGS: LUNGS AND PLEURA: Mild chronic interstitial changes are suggested. There is no infiltrate or effusion. There is no mass. MEDIASTINUM AND HILAR STRUCTURES: No masses or contour abnormalities. HEART AND VASCULAR STRUCTURES: Heart normal size. No evidence for failure. BONES: No acute findings. HARDWARE: None in the chest. OTHER: No other significant finding. IMPRESSION: Chronic lung changes with no acute cardiopulmonary disease. TECHNICAL DOCUMENTATION: JOB ID: [id number] [employer]- All Rights Reserved Reading location - IP/workstation name: [email or web address]
[2018-04-04 21:45] LABS: APPEARANCE,URINE CLEAR; BILIRUBIN,URINE NEGATIVE (NEGATIVE); COLOR,URINE YELLOW; GLUCOSE, URINE NEGATIVE (NEGATIVE); KETONES,URINE NEGATIVE (NEGATIVE); LEUKOCYTE ESTERASE,URINE SMALL (NEGATIVE); NITRITE,URINE NEGATIVE (NEGATIVE); PROTEIN,URINE NEGATIVE (NEGATIVE); URINE SPECIFIC GRAVITY 1.029; UROBILINOGEN,URINE NEGATIVE mg/dL (<2.0)
--- NOTE | 2018-04-04 21:46 | ER Document Report ---
ED General - General Mode of Arrival: Wheelchair Information source: Patient TRAVEL OUTSIDE OF THE [place] IN LAST 30 DAYS: No <SANDRA CLARKE - Last Filed: 04/04/18 22:05> <LUCIA DIAZ - Last Filed: 04/05/18 04:01> - General Chief Complaint: Abdominal Pain >50 Stated Complaint: ABDOMINAL PAIN Time Seen by Provider: 04/04/18 19:17 Notes: 77 y.o female with HLD, HTN, a PMHx of an DC one year ago, breast cancer with a LT mastectomy in 2004 and a PSHx of cholecystectomy presents to the ED after having an outpatient CT abd/pelvis with IV and oral contrast and a radiologist read as appendicitis. Pt reports that she has been having lower abdominal pain for the past 2 weeks but worsened in past few days. She states that about 4 days ago while she was lying in bed she had to sit straight up because she felt pain as if someone was stabbing her with a knife to her RLQ. Pt reports that her pain is fine and somewhat relieved while she is lying still. She also reports a loss of appetite, nausea and many episodes of diarrhea. She denies any vomiting, fevers, CP or trouble breathing. Pt's PCP is Dr. Coker. Pt denies any cardiac stent placement from her DC one year ago, she reports that she was treated with medications. (SANDRA CLARKE) - Related Data Allergies/Adverse Reactions: No Known Drug Allergies Allergy (Verified 04/04/18 18:55) surgical tape Allergy (Severe, Uncoded 04/04/18 18:55) blisters,pulls skin off Past Medical History - General Information source: Patient - Social History Smoking Status: Never Smoker Chew tobacco use (# tins/day): No Frequency of alcohol use: None Drug Abuse: None Family History: Reviewed & Not Pertinent Patient has suicidal ideation: No Patient has homicidal ideation: No - Past Medical History Cardiac Medical History: Reports: Hx Heart Attack, Hx Hypercholesterolemia, Hx Hypertension Endocrine Medical History: Reports: Hx Diabetes Mellitus Type 2 Malignancy Medical History: Reports: Hx Breast Cancer - lt masectomy NO IV BP LEFT arm Musculoskeletal Medical History: Reports Hx Arthritis - all joints Past Surgical History: Reports: Hx Cholecystectomy, Hx Mastectomy - left, Hx Orthopedic Surgery - b/l knees, back surgery - Immunizations Hx Diphtheria, Pertussis, Tetanus Vaccination: - unsure Hx Pneumococcal Vaccination: 05/27/17 <SANDRA CLARKE - Last Filed: 04/04/18 22:05> Review of Systems - Review of Systems Constitutional: See HPI. denies: Fever EENT: No symptoms reported Cardiovascular: See HPI. denies: Chest pain Respiratory: See HPI. denies: Short of breath Gastrointestinal: See HPI, Abdominal pain, Diarrhea, Nausea, Poor appetite. denies: Vomiting Genitourinary: No symptoms reported Female Genitourinary: No symptoms reported Musculoskeletal: No symptoms reported Skin: No symptoms reported Hematologic/Lymphatic: No symptoms reported Neurological/Psychological: No symptoms reported -: Yes All other systems reviewed and negative <SANDRA CLARKE - Last Filed: 04/04/18 22:05> Physical Exam <SANDRA CLRAKE - Last Filed: 04/04/18 22:05> <LUCIA DIAZ - Last Filed: 04/05/18 04:01> - Vital signs Vitals: Temp Pulse Resp BP Pulse Ox 98.5 F 88 18 132/62 H 97 04/04/18 19:12 04/04/18 19:12 04/04/18 19:12 04/04/18 19:12 04/04/18 19:12 - Notes Notes: PHYSICAL EXAM GENERAL: Alert, interacts well. No acute distress. HEAD: Normocephalic, atraumatic. EYES: Pupils equal, round, and reactive to light. Extraocular movements intact. ENT: Oral mucosa moist, tongue midline. NECK: Full range of motion. Supple. Trachea midline. LUNGS: Clear to auscultation bilaterally, no wheezes, rales, or rhonchi. No respiratory distress. HEART: Regular rate and rhythm. No murmurs, gallops, or rubs. ABDOMEN: Soft. Tender diffusely across the lower abdomen, most prominently to the RT and LT lower quadrants. Non-distended. Bowel sounds present in all 4 quadrants. No guarding, rebound, or rigidity. EXTREMITIES: Moves all 4 extremities spontaneously. No edema. No cyanosis. NEUROLOGICAL: Alert and oriented x3. Normal speech. PSYCH: Normal affect, normal mood. SKIN: Warm, dry, normal turgor. No rashes or lesions noted. (SANDRA CLARKE) Course <SANDRA CALRKE - Last Filed: 04/04/18 22:05> - Laboratory Result Diagrams: 04/04/18 22:00 04/04/18 22:00 <LUCIA DIAZ - Last Filed: 04/05/18 04:01> - Re-evaluation Re-evalutation: 04/04/18 22:16 Blood work is pending, outpatient CAT scan showed acute appendicitis, Dr. Crump has already personally evaluated the patient, agrees to admit the patient to his service. Requests consult to the hospitalist. I did discuss this patient with Dr. Chang and Dr. Crump's desire for help with medical management of the patient and operative risk reduction. This consult has been entered as well for this patient. Dr. Crump does not wish to take the patient to surgery tonight given her history of prior non-STEMI during a previous surgery approximately 1 year ago. Patient has been started on Flagyl and Levaquin. Abdomen is tender but not rigid. ( LUCIA DIAZ) - Vital Signs Vital signs: Temp Pulse Resp BP Pulse Ox 98.4 F 73 12 132/45 H 99 04/05/18 02:34 04/05/18 02:34 04/05/18 02:34 04/05/18 02:34 04/05/18 02:34 - Laboratory Laboratory results interpreted by me: 04/04/18 04/04/18 04/04/18 21:21 22:00 22:00 RDW 15.1 H Potassium 3.4 L Chloride 96 L Lipase 12.9 L Ur Leukocyte Esterase SMALL H - EKG Interpretation by Me Additional EKG results interpreted by me: 04/04/18 22:18 EKG shows sinus rhythm at a rate of 70, left axis deviation, normal intervals, no ST segment elevations or depressions, no T-wave inversions per my interpretation. (LUCIA DIAZ) Discharge <SANDRA CLARKE - Last Filed: 04/04/18 22:05> - Discharge Admitting Provider: Surgicalist - [facility] Admitted: Surgical Floor <LUCIA DIAZ - Last Filed: 04/05/18 04:01> - Discharge Clinical Impression: Acute appendicitis Qualifiers: Acute appendicitis type: with localized peritonitis Qualified Code(s): K35.3 - Acute appendicitis with localized peritonitis Condition: Fair Disposition: ADMITTED INPATIENT Scribe Attestation: 04/05/18 04:01 I personally performed the services described in the documentation, reviewed and edited the documentation which was dictated to the scribe in my presence, and it accurately records my words and actions. (LUCIA DIAZ) Scribe Documentation - Scribe Written by Pat:: Pat Hi 04/04/18 [id number] acting as scribe for :: Griffin <SANDRA CLARKE - Last Filed: 04/04/18 22:05>
[2018-04-04 22:31] LABS: ABSOLUTE LYMPHOCYTES (AUTO) 1.6 10^3/uL (0.5-4.7); ABSOLUTE MONOCYTES (AUTO) 0.4 10^3/uL (0.1-1.4); ABSOLUTE NEUT (AUTO) 3.6 10^3/uL (1.7-8.2); BASOPHILS % (AUTO) 0.6 % (0-2); EOSINOPHILS % (AUTO) 0.6 % (0-6); HEMATOCRIT 36.7 % (36.0-47.0); HEMOGLOBIN 12.3 g/dL (12.0-15.5); LYMPHOCYTES % (AUTO) 28.1 % (13-45); MEAN CORPUSCULAR HGB CONC 33.5 g/dL (32.0-36.0); MEAN CORPUSCULAR VOLUME 86 fl (80-97); MONOCYTES % (AUTO) 6.4 % (3-13); PLATELET COUNT 211 10^3/uL (150-450); RED BLOOD COUNT 4.24 10^6/uL (3.72-5.28); RED CELL DISTRIBUTION WIDTH 15.1 % (11.5-14.0); SEGMENTED NEUTROPHILS % (AUTO) 64.3 % (42-78); TOTAL CELLS COUNTED % (AUTO) 100 %; WHITE BLOOD COUNT 5.6 10^3/uL (4.0-10.5)
[2018-04-04 22:46] LABS: ALANINE AMINOTRANSFERASE 37 U/L (9-52); ALBUMIN 3.9 g/dL (3.5-5.0); ALKALINE PHOSPHATASE 85 U/L (38-126); ANION GAP 16 (5-19); ASPARTATE AMINO TRANSFERASE 29 U/L (14-36); BILIRUBIN,DIRECT 0.3 mg/dL (0.0-0.4); BILIRUBIN,TOTAL 0.7 mg/dL (0.2-1.3); BLOOD UREA NITROGEN 17 mg/dL (7-20); CALCIUM 9.9 mg/dL (8.4-10.2); CARBON DIOXIDE 27 mmol/L (22-30); CHLORIDE 96 mmol/L (98-107); CREATINE KINASE 71 U/L (30-135); GLUCOSE 88 mg/dL (75-110); LIPASE 12.9 U/L (23-300); POTASSIUM 3.4 mmol/L (3.6-5.0); TOTAL PROTEIN 6.9 g/dL (6.3-8.2)
[2018-04-04 23:00] LABS: TROPONIN I < 0.012 ng/mL
--- NOTE | 2018-04-04 23:39 | EKG REPORT ---
SEVERITY:- NORMAL ECG - SINUS RHYTHM : Confirmed by: Donna Ryan MD 04-Apr-2018 23:38:27
[2018-04-05] MEDS ORDERED: OXYCODONE-ACETAMINOPHEN 5-325 MG TABLET PO ONE (03:30)
[2018-04-05] MEDS ORDERED: DEXTROSE 40% GEL 15 GM TUBE X 2 PO PRN (06:08)
[2018-04-05] MEDS ORDERED: DEXTROSE 50%-WATER SYRINGE 12.5 GM/25 ML DOSE IV PRN (06:08)
[2018-04-05] MEDS ORDERED: DEXTROSE 40% GEL 15 GM TUBE PO PRN ×3 (06:08→06:59)
[2018-04-05] MEDS ORDERED: DEXTROSE 50%-WATER SYRINGE 25 GM/50 ML DOSE IV PRN (06:08)
[2018-04-05] MEDS ORDERED: GLUCAGON,HUMAN RECOMB 1 MG INJ IM PRN ×2 (06:08→06:59)
[2018-04-05] MEDS ORDERED: DEXTROSE 50%-WATER 25 GM/50 ML DISP.SYRIN IV PRN ×2 (06:59)
[2018-04-05] MEDS ORDERED: MORPHINE SULFATE 10 MG/ML INJ IV PRN ×2 (06:59→09:03)
[2018-04-05] MEDS ORDERED: INSULIN REG, HUMAN 100 UNIT/ML 3 ML VIAL (PYX) SUBCUT PRN (06:59)
[2018-04-05] MEDS ORDERED: ONDANSETRON HCL INJ/PF 4 MG/2 ML SDV IV PRN (06:59)
[2018-04-05] MEDS ORDERED: MELOXICAM 15 MG TABLET PO PRN (06:59)
[2018-04-05] MEDS ORDERED: GLUCAGON,HUMAN RECOMB 1 MG INJ SUBCUT PRN (06:59)
[2018-04-05 07:23] LABS: ABSOLUTE LYMPHOCYTES (AUTO) 1.1 10^3/uL (0.5-4.7); ABSOLUTE MONOCYTES (AUTO) 0.3 10^3/uL (0.1-1.4); ABSOLUTE NEUT (AUTO) 3.1 10^3/uL (1.7-8.2); BASOPHILS % (AUTO) 0.7 % (0-2); EOSINOPHILS % (AUTO) 0.2 % (0-6); HEMATOCRIT 33.3 % (36.0-47.0); HEMOGLOBIN 11.2 g/dL (12.0-15.5); LYMPHOCYTES % (AUTO) 24.9 % (13-45); MEAN CORPUSCULAR HEMOGLOBIN 29.1 pg (27.0-33.4); MEAN CORPUSCULAR HGB CONC 33.5 g/dL (32.0-36.0); MEAN CORPUSCULAR VOLUME 87 fl (80-97); PLATELET COUNT 170 10^3/uL (150-450); RED BLOOD COUNT 3.84 10^6/uL (3.72-5.28); RED CELL DISTRIBUTION WIDTH 15.1 % (11.5-14.0); SEGMENTED NEUTROPHILS % (AUTO) 67.2 % (42-78); TOTAL CELLS COUNTED % (AUTO) 100 %; WHITE BLOOD COUNT 4.6 10^3/uL (4.0-10.5)
[2018-04-05 07:47] LABS: ANION GAP 13 (5-19); BLOOD UREA NITROGEN 16 mg/dL (7-20); CALCIUM 9.2 mg/dL (8.4-10.2); CARBON DIOXIDE 26 mmol/L (22-30); CHLORIDE 100 mmol/L (98-107); GLUCOSE 98 mg/dL (75-110); POTASSIUM 3.5 mmol/L (3.6-5.0); SODIUM 139.2 mmol/L (137-145)
[2018-04-05] MEDS: LOSARTAN POTASSIUM 50 MG TABLET PO SCH (09:12)
[2018-04-05] MEDS: ASPIRIN 81 MG TABLET, CHEWABLE PO SCH (09:13)
[2018-04-05] MEDS: NIFEDIPINE 30 MG TAB.ER.24 PO SCH (09:13)
[2018-04-05] MEDS: HYDROCHLOROTHIAZIDE 25 MG TABLET PO SCH (09:13)
[2018-04-05] MEDS: CALCIUM CARBONATE 250 MG/VITAMIN D3 125 UNIT TABLET PO SCH (09:13)
[2018-04-05] MEDS: CARVEDILOL 6.25 MG TABLET PO SCH ×2 (09:13→22:39)
[2018-04-05] MEDS: NORMAL SALINE 1000 ML 1,000 ML IV PRN (09:14)
--- NOTE | 2018-04-05 10:22 | PDOC H&P ---
History of Present Illness Admission Date/PCP: 04/04/18 22:34 CLARITZA NAILS MD Patient complains of: Abdominal pains History of Present Illness: SAVANNAH BOLDEN is a 77 year old female with history of GA a year ago, non insulin dependent DM started c/o RLQ pains 2 weeks ago with diarrhea and nausea whenever she eats. She has been taking pain pills 1-2/day since her back surgery in December 2017. This was also when she had her GA post operatively. She finally saw her PCP Dr Nails yesterday at 1pm who sent her to the hospital for CT scan of abd which showed acute appendicitis. Denies fever/chills/dysuria Past Medical History Cardiac Medical History: Reports: Myocardial Infarction, Hyperlipidema, Hypertension Denies: Atrial Fibrillation, Congestive Heart Failure, Coronary Artery Disease, Peripheral Vascular Disease, Pulmonary Embolism, Heart Murmur Pulmonary Medical History: Denies: Asthma, Bronchitis, Chronic Obstructive Pulmonary Disease (COPD), Pneumonia, Respiratory Failure, Sleep Apnea, Tuberculosis Neurological Medical History: Denies: Seizures Endocrine Medical History: Reports: Diabetes Mellitus Type 2 Denies: Hyperthyroidism, Hypothyroidism Malignancy Medical History: Reports: Breast Cancer - lt masectomy NO IV BP LEFT arm Denies: Cervical Cancer, Leukemia, Lung Cancer, Ovarian Cancer GI Medical History: Denies: Crohn's Disease, Gastroesophageal Reflux Disease, Hiatal Hernia Musculoskeltal Medical History: Reports: Arthritis - all joints Denies: Fibromyalgia Psychiatric Medical History: Denies: Bipolar Disorder, Depression, Post Traumatic Stress Disorder Hematology: Denies: Anemia, Hemophilia, Sickle Cell Disease Infectious Medical History: Denies: HIV Past Surgical History Past Surgical History: Reports: Cholecystectomy, Mastectomy - left, Orthopedic Surgery - b/l knees, back surgery Denies: Amputation, Appendectomy, Section, Colostomy, Coronary Artery Bypass Graft, Gastric Bypass Surgery, Herniorrhaphy, Hysterectomy, Pacemaker, Tonsillectomy, Tubal Ligation Social History Smoking Status: Former Smoker Cigarettes Packs Per Day: 2 Number of Years Smokin Last Time Smoked: quit 9 yrs ago Frequency of Alcohol Use: None Hx Recreational Drug Use: No Drugs: None Hx Prescription Drug Abuse: No Family History Family History: Reviewed & Not Pertinent Parental Family History Reviewed: Yes Children Family History Reviewed: No Sibling(s) Family History Reviewed.: No Medication/Allergy Home Medications: Aspirin [Aspirin 81 mg Chewable Tablet] 81 mg PO DAILY 02/12/18 Calcium Carbonate/Vitamin D3 [Calcium 600-Vit D3 800 Tablet] 1 tab PO BID Carvedilol [Coreg 6.25 mg Tablet] 6.25 mg PO Q12 02/12/18 Gabapentin [Neurontin] 800 mg PO Q8 02/12/18 Glimepiride [Amaryl 1 mg Tablet] 1 mg PO QAM 02/12/18 Isosorbide Mononitrate [Isosorbide Mononitrate ER] 30 mg PO DAILY 02/12/18 Meloxicam [Mobic] 15 mg PO DAILYP PRN 02/12/18 Metformin HCl [Glucophage 500 mg Tablet] 1,000 mg PO BIDACBS 02/12/18 Multivitamin [Multiple Vitamins] 1 tab PO DAILY 02/12/18 Pravastatin Sodium [Pravachol] 80 mg PO DAILY 02/12/18 Telmisartan/Hydrochlorothiazid [Telmisartan-Hctz 80-25 mg Tab] 1 tab PO DAILY Oxycodone HCl/Acetaminophen [Percocet 5-325 mg Tablet] 1 tab PO QIDP PRN Allergies/Adverse Reactions: No Known Drug Allergies Allergy (Verified 04/04/18 18:55) surgical tape Allergy (Severe, Uncoded 04/04/18 18:55) blisters,pulls skin off Review of Systems Constitutional: PRESENT: as per HPI Eyes: PRESENT: other - no visual/hearing changes Cardiovascular: PRESENT: other - no cough/chest pains Gastrointestinal: PRESENT: abdominal pain, nausea Musculoskeletal: PRESENT: back pain Neurological: PRESENT: other - no seizures Hematologic/Lymphatic: PRESENT: other - no easy bruising Physical Exam Vital Signs: Temp Pulse Resp BP Pulse Ox 97.8 F 68 16 134/44 H 97 04/05/18 07:54 04/05/18 07:54 04/05/18 07:54 04/05/18 07:54 04/05/18 07:54 Intake & Output 04/04/18 04/05/18 04/06/18 06:59 06:59 06:59 Intake Total 250 1000 Output Total 0 Balance 250 1000 Weight 84.4 kg General appearance: PRESENT: no acute distress Head exam: PRESENT: atraumatic Eye exam: PRESENT: conjunctiva pink Mouth exam: PRESENT: moist Neck exam: PRESENT: full ROM Respiratory exam: PRESENT: clear to auscultation herminia Cardiovascular exam: PRESENT: RRR Pulses: PRESENT: normal radial pulses Vascular exam: PRESENT: normal capillary refill GI/Abdominal exam: PRESENT: soft, tenderness - RLQ no rebound Rectal exam: PRESENT: deferred Extremities exam: PRESENT: full ROM Musculoskeletal exam: PRESENT: ambulatory Neurological exam: PRESENT: alert, oriented to person, oriented to place, oriented to time, oriented to situation Psychiatric exam: PRESENT: appropriate affect Skin exam: PRESENT: normal color, warm Results Laboratory Results: 04/05/18 07:01 04/05/18 07:01 04/05/18 04/05/18 04/05/18 07:01 07:01 07:01 WBC 4.6 RBC 3.84 Hgb 11.2 L Hct 33.3 L MCV 87 MCH 29.1 MCHC 33.5 RDW 15.1 H Plt Count 170 Seg Neutrophils % 67.2 Lymphocytes % 24.9 Monocytes % 7.0 Eosinophils % 0.2 Basophils % 0.7 Absolute Neutrophils 3.1 Absolute Lymphocytes 1.1 Absolute Monocytes 0.3 Absolute Eosinophils 0.0 Absolute Basophils 0.0 Sodium 139.2 Potassium 3.5 L Chloride 100 Carbon Dioxide 26 Anion Gap 13 BUN 16 Creatinine 0.81 Est GFR ( Amer) > 60 Est GFR (Non-Af Amer) > 60 Glucose 98 Lactic Acid 1.0 Calcium 9.2 Impressions: Chest X-Ray 04/04/18 19:31 IMPRESSION: Chronic lung changes with no acute cardiopulmonary disease. Assessment & Plan - Time Time Spent: 30 to 50 Minutes - Inpatient Certification Medical Necessity: Need For IV Fluids, Need for Pain Control, Need for IV Antibiotics, Need for Surgery - Plan Summary Plan Summary: Continue IV antibiotics Hospitalist and cardio consults OK to have clears
[2018-04-05] MEDS: ENOXAPARIN SODIUM INJ 30 MG/0.3 ML DISP.SYRIN SUBCUT SCH (10:33)
[2018-04-05] MEDS: METRONIDAZOLE 500 MG/NS RTU 500 MG/100 ML RTUPB IV SCH ×2 (11:45→17:14)
[2018-04-05 13:05] LABS: CREATINE KINASE MB 1.47 ng/mL (<4.55)
[2018-04-05 13:10] LABS: TROPONIN I < 0.012 ng/mL
[2018-04-05] MEDS: GABAPENTIN 400 MG CAPSULE PO SCH ×2 (13:55→22:39)
--- NOTE | 2018-04-05 14:19 | PDOC CONSULTATION ---
Consultation Consult Date: 04/05/18 Attending physician:: DANAY CALI Consult reason:: HTN. DM. HX OF NSTEMI History of Present Illness Admission Date/PCP: 04/04/18 22:34 BIJU NAILS MD History of Present Illness: SAVANNAH BOLDEN is a 77 year old female with a PMH of HLD, HTN, a PMHx of an NH one year ago, breast cancer with a LT mastectomy in 2004 and a PSHx of cholecystectomy presents with a two-week history of RLQ abdominal pain. The patient's PCP, Dr. Biju Nails, sent her for an outpatient CT abdomen/pelvis, which was read by a radiologist as appendicitis. The PCP then instructed the patient to go to the ED. She reports that her pain is fine and somewhat relieved while she is lying still. She also reports a loss of appetite, nausea and many episodes of "explosive" diarrhea. She denies any vomiting, fevers, dysuria, chest pain or trouble breathing. Of note, the patient suffered an intraoperative NSTEMI 1 year ago at [facility] while undergoing back surgery. The patient reports she did not have stents placed, her NSTEMI was managed medically. The patient is currently admitted to the surgical service with hospitalist and cardiology consulted. Plan is to obtain cardiac and medical clearance for surgery. Currently treating appendicitis with IV antibiotics. Past Medical History Cardiac Medical History: Reports: Myocardial Infarction, Hyperlipidema, Hypertension Denies: Atrial Fibrillation, Congestive Heart Failure, Coronary Artery Disease, Peripheral Vascular Disease, Pulmonary Embolism, Heart Murmur Pulmonary Medical History: Denies: Asthma, Bronchitis, Chronic Obstructive Pulmonary Disease (COPD), Pneumonia, Respiratory Failure, Sleep Apnea, Tuberculosis Neurological Medical History: Denies: Seizures Endocrine Medical History: Reports: Diabetes Mellitus Type 2 Denies: Hyperthyroidism, Hypothyroidism Malignancy Medical History: Reports: Breast Cancer - L masectomy (2004) Denies: Cervical Cancer, Leukemia, Lung Cancer, Ovarian Cancer GI Medical History: Denies: Crohn's Disease, Gastroesophageal Reflux Disease, Hiatal Hernia Musculoskeltal Medical History: Reports: Arthritis - all joints Denies: Fibromyalgia Psychiatric Medical History: Denies: Bipolar Disorder, Depression, Post Traumatic Stress Disorder Hematology: Denies: Anemia, Hemophilia, Sickle Cell Disease Infectious Medical History: Denies: HIV Past Surgical History Past Surgical History: Reports: Cholecystectomy, Mastectomy - LEFT 2004, Orthopedic Surgery - b/l knees, back surgery, R SHOULDER Denies: Amputation, Appendectomy, Section, Colostomy, Coronary Artery Bypass Graft, Gastric Bypass Surgery, Herniorrhaphy, Hysterectomy, Pacemaker, Tonsillectomy, Tubal Ligation Social History Information Source: Patient Smoking Status: Former Smoker Cigarettes Packs Per Day: 2 Number of Years Smokin Last Time Smoked: quit 9 yrs ago Frequency of Alcohol Use: None Hx Recreational Drug Use: No Drugs: None Hx Prescription Drug Abuse: No Family History Family History: Reviewed & Not Pertinent Parental Family History Reviewed: Yes Children Family History Reviewed: Yes Sibling(s) Family History Reviewed.: Yes Medication/Allergy Home Medications: Aspirin [Aspirin 81 mg Chewable Tablet] 81 mg PO DAILY 02/12/18 Calcium Carbonate/Vitamin D3 [Calcium 600-Vit D3 800 Tablet] 1 tab PO BID Carvedilol [Coreg 6.25 mg Tablet] 6.25 mg PO Q12 02/12/18 Gabapentin [Neurontin] 800 mg PO Q8 02/12/18 Glimepiride [Amaryl 1 mg Tablet] 1 mg PO QAM 02/12/18 Isosorbide Mononitrate [Isosorbide Mononitrate ER] 30 mg PO DAILY 02/12/18 Meloxicam [Mobic] 15 mg PO DAILYP PRN 02/12/18 Metformin HCl [Glucophage 500 mg Tablet] 1,000 mg PO BIDACBS 02/12/18 Multivitamin [Multiple Vitamins] 1 tab PO DAILY 02/12/18 Pravastatin Sodium [Pravachol] 80 mg PO DAILY 02/12/18 Telmisartan/Hydrochlorothiazid [Telmisartan-Hctz 80-25 mg Tab] 1 tab PO DAILY Oxycodone HCl/Acetaminophen [Percocet 5-325 mg Tablet] 1 tab PO QIDP PRN Allergies/Adverse Reactions: No Known Drug Allergies Allergy (Verified 04/04/18 18:55) surgical tape Allergy (Severe, Uncoded 04/04/18 18:55) blisters,pulls skin off Review of Systems All systems: reviewed and no additional remarkable complaints except as stated Physical Exam Vital Signs: Temp Pulse Resp BP Pulse Ox 98.1 F 79 16 127/55 H 95 04/05/18 10:49 04/05/18 10:49 04/05/18 10:49 04/05/18 10:49 04/05/18 10:49 Intake & Output 04/04/18 04/05/18 04/06/18 06:59 06:59 06:59 Intake Total 250 1418 Output Total 0 Balance 250 1418 Weight 84.4 kg General appearance: PRESENT: no acute distress, well-developed, well-nourished Head exam: PRESENT: atraumatic Eye exam: PRESENT: conjunctiva pink, PERRLA Mouth exam: PRESENT: moist, tongue midline Neck exam: PRESENT: full ROM Respiratory exam: PRESENT: clear to auscultation herminia, symmetrical, unlabored Cardiovascular exam: PRESENT: +S1, +S2 Pulses: PRESENT: normal radial pulses, normal dorsalis pedis pul GI/Abdominal exam: PRESENT: normal bowel sounds, soft, tenderness - DIFFUSE. WORSE IN THE RLQ. ABSENT: distended Rectal exam: PRESENT: deferred Extremities exam: PRESENT: full ROM. ABSENT: pedal edema Musculoskeletal exam: PRESENT: ambulatory, full ROM Neurological exam: PRESENT: alert, awake, oriented to person, oriented to place , oriented to time, oriented to situation Psychiatric exam: PRESENT: appropriate affect Skin exam: PRESENT: dry, intact, normal color Results Laboratory Results: 04/05/18 07:01 04/05/18 07:01 04/05/18 04/05/18 04/05/18 07:01 07:01 07:01 WBC 4.6 RBC 3.84 Hgb 11.2 L Hct 33.3 L MCV 87 MCH 29.1 MCHC 33.5 RDW 15.1 H Plt Count 170 Seg Neutrophils % 67.2 Lymphocytes % 24.9 Monocytes % 7.0 Eosinophils % 0.2 Basophils % 0.7 Absolute Neutrophils 3.1 Absolute Lymphocytes 1.1 Absolute Monocytes 0.3 Absolute Eosinophils 0.0 Absolute Basophils 0.0 Sodium 139.2 Potassium 3.5 L Chloride 100 Carbon Dioxide 26 Anion Gap 13 BUN 16 Creatinine 0.81 Est GFR ( Amer) > 60 Est GFR (Non-Af Amer) > 60 Glucose 98 Lactic Acid 1.0 Calcium 9.2 Impressions: Chest X-Ray 04/04/18 19:31 IMPRESSION: Chronic lung changes with no acute cardiopulmonary disease. Status: Imported from PACS Assessment & Plan - Diagnosis (1) Appendicitis Qualifiers: Acute appendicitis type: with localized peritonitis Is this a current diagnosis for this admission?: Yes Plan: Management per surgery Currently on Flagyl and Levaquin (2) HTN (hypertension) Is this a current diagnosis for this admission?: Yes Plan: Patient endorses history of HTN Resume home dose Coreg, HCTZ, and IMDUR ASA and statin therapy (3) H/O non-ST elevation myocardial infarction (NSTEMI) Is this a current diagnosis for this admission?: Yes Plan: Hx of NSTEMI 1 year ago following prolonged lumbar fusion surgery Patient states she experienced her NSTEMI immediately postop while in PACU No stents placed, NSTEMI was managed medically Patient will require cardiac clearance prior to appendectomy EKG shows NSR, no evidence of infarct or ischemia Initial troponin<0.012, continue to trend every 6 hours 3 STAT ECHOcardiogram pending Cardiology consulted, appreciate their recommendations (4) Diabetes Qualifiers: Diabetes mellitus type: type 2 Diabetes mellitus complication status: without complication Is this a current diagnosis for this admission?: Yes Plan: Patient endorses history of diabetes Accu-Cheks before meals at bedtime Humalog sliding scale insulin coverage (5) Diarrhea Qualifiers: Diarrhea type: unspecified type Qualified Code(s): R19.7 - Diarrhea, unspecified Is this a current diagnosis for this admission?: Yes Plan: Patient endorses daily "explosive" diarrhea x 2 weeks States she was recently treated with antibiotics for PNA (January 2018) Plan to collect C.diff PCR and stool culture - Time Time Spent: 30 to 50 Minutes Medications reviewed and adjusted accordingly: Yes Anticipated discharge: Home - Inpatient Certification Based on my medical assessment, after consideration of the patient's comorbidities, presenting symptoms, or acuity I expect that the services needed warrant INPATIENT care.: Yes I certify that my determination is in accordance with my understanding of Medicare's requirements for reasonable and necessary INPATIENT services [42 CFR 412.3e].: Yes Medical Necessity: Need for IV Antibiotics, Need for Surgery, Risk of Complication if Not Cared For in Hospital - Plan Summary Plan Summary: CONSULT CARDIOLOGY. COMPLETE CARDIAC WORKUP PRIOR TO SURGERY.
[2018-04-05 19:25] LABS: CREATINE KINASE MB 1.13 ng/mL (<4.55)
[2018-04-05 19:28] LABS: TROPONIN I < 0.012 ng/mL
--- NOTE | 2018-04-05 22:17 | XCELERA REPORT ---
[address] [address] Transthoracic Echocardiogram Report Name: SAVANNAH BOLDEN Age: 77 yrs Gender: Female : 1940 Patient Status: Inpatient Patient Location: [address] [place] [address] Study Date: 04/05/2018 04:23 PM Procedure: A complete two-dimensional transthoracic echocardiogram was performed (2D, M-mode, spectral and color flow Doppler). The study was technically difficult with many images being suboptimal in quality. Reason For Study: preop workup Ordering Physician: TAMIKO GABRIEL Performed By: Josephine Moss Interpretation Summary The left ventricular ejection fraction is within normal limits. There is mild concentric left ventricular hypertrophy. The left ventricle is grossly normal size. Doppler measurements suggest pseudonormalized left ventricular relaxation, which is associated with grade II/IV or mild to moderate diastolic dysfunction Wall motion cannot be accurately commented on, but no definite regional wall motion abnormalities noted. The right ventricle is grossly normal size. The right ventricular systolic function is normal. The right atrium is normal in size The left atrium is mildly dilated. There is a mild amount of mitral regurgitation There is no mitral valve stenosis. No aortic regurgitation is present. There is no aortic valve stenosis No tricuspid regurgitation. There is no tricuspid stenosis. The aortic root is not well visualized. The inferior vena cava was not well visualized Minimal pericardial effusion. MMode/2D Measurements & Calculations RVDd: 2.5 cm LVIDd: 4.5 cm FS: 34.7 % Ao root diam: 2.9 cm IVSd: 0.81 cm LVIDs: 3.0 cm EDV(Teich): Ao root area: LVPWd: 0.68 cm 94.2 ml 6.6 cm2 ESV(Teich): 33.9 ml EF(Teich): 64.0 % EDV(MOD-sp4): SV(MOD-sp4): 53.0 ml 30.4 ml ESV(MOD-sp4): 22.6 ml EF(MOD-sp4): 57.4 % Doppler Measurements & Calculations MV E max geo: MV dec slope: Ao V2 max: LV V1 max P.6 cm/sec 323.9 cm/sec2 166.2 cm/sec 3.8 mmHg MV A max geo: MV dec time: 0.23 sec Ao max PG: LV V1 max: 121.1 cm/sec 11.0 mmHg 97.1 cm/sec MV E/A: 0.62 Left Ventricle The left ventricle is grossly normal size. There is mild concentric left ventricular hypertrophy. The left ventricular ejection fraction is within normal limits. Doppler measurements suggest pseudonormalized left ventricular relaxation, which is associated with grade II/IV or mild to moderate diastolic dysfunction. Wall motion cannot be accurately commented on, but no definite regional wall motion abnormalities noted. Right Ventricle The right ventricle is grossly normal size. There is normal right ventricular wall thickness. The right ventricular systolic function is normal. Atria The right atrium is normal in size. The left atrium is mildly dilated. Interarterial septum not well visualized and not well dopplered. Cannot comment on ASD/PFO presence. Mitral Valve The mitral valve is grossly normal. There is no mitral valve stenosis. There is a mild amount of mitral regurgitation. Aortic Valve The aortic valve is not well visualized secondary to technical limitations. The aortic valve opens well. There is no aortic valve stenosis. No aortic regurgitation is present. Tricuspid Valve The tricuspid valve is not well visualized secondary to technical limitations. There is no tricuspid stenosis. No tricuspid regurgitation. Pulmonic Valve The pulmonic valve is not well visualized. Great Vessels The aortic root is not well visualized. The inferior vena cava was not well visualized. Effusions Minimal pericardial effusion. : TAMIKO GABRIEL > Diane Sandhu
--- NOTE | 2018-04-05 22:27 | PDOC CONSULTATION ---
Consultation Consult Date: 04/05/18 Attending physician:: DANAY CALI Consult reason:: Preop cardiac clearance History of Present Illness Admission Date/PCP: 04/04/18 22:34 BIJU COKER MD Patient complains of: Abdominal pain History of Present Illness: SAVANNAH BOLDEN is a 77 year old female with a PMH of HLD, HTN, a PMHx of an [place] one year ago, breast cancer with a LT mastectomy in 2004 and a PSHx of cholecystectomy presents with a two-week history of RLQ abdominal pain. The patient's PCP, Dr. Biju Coker, sent her for an outpatient CT abdomen/pelvis, which was read by a radiologist as appendicitis. The PCP then instructed the patient to go to the ED. She reports that her pain is fine and somewhat relieved while she is lying still. She also reports a loss of appetite, nausea and many episodes of "explosive" diarrhea. She denies any vomiting, fevers, dysuria, chest pain or trouble breathing. Of note, the patient suffered an intraoperative NSTEMI 1 year ago at [facility] while undergoing back surgery. The patient reports she did not have stents placed, her NSTEMI was managed medically. The patient is currently admitted to the surgical service with hospitalist and cardiology consulted. Plan is to obtain cardiac and medical clearance for surgery. Currently treating appendicitis with IV antibiotics. Above history of patient sustaining a non-STEMI is suspect as patient did not have any stress testing or any heart catheterization at that time. Patient claims that since then she has done well without any chest, neck discomfort. She is short of breath on [id number] exertion but denied any orthopnea, PND, sustained palpitations, syncope or near syncope. Patient claims he has done reasonably well from cardiac standpoint. Past Medical History Cardiac Medical History: Reports: Myocardial Infarction, Hyperlipidema, Hypertension Denies: Atrial Fibrillation, Congestive Heart Failure, Coronary Artery Disease, Peripheral Vascular Disease, Pulmonary Embolism, Heart Murmur Pulmonary Medical History: Denies: Asthma, Bronchitis, Chronic Obstructive Pulmonary Disease (COPD), Pneumonia, Respiratory Failure, Sleep Apnea, Tuberculosis Neurological Medical History: Denies: Seizures Endocrine Medical History: Reports: Diabetes Mellitus Type 2 Denies: Hyperthyroidism, Hypothyroidism Malignancy Medical History: Reports: Breast Cancer - L masectomy (2004) Denies: Cervical Cancer, Leukemia, Lung Cancer, Ovarian Cancer GI Medical History: Denies: Crohn's Disease, Gastroesophageal Reflux Disease, Hiatal Hernia Musculoskeltal Medical History: Reports: Arthritis - all joints Denies: Fibromyalgia Psychiatric Medical History: Denies: Bipolar Disorder, Depression, Post Traumatic Stress Disorder Hematology: Denies: Anemia, Hemophilia, Sickle Cell Disease Infectious Medical History: Denies: HIV Past Surgical History Past Surgical History: Reports: Cholecystectomy, Mastectomy - LEFT 2004, Orthopedic Surgery - b/l knees, back surgery, R SHOULDER Denies: Amputation, Appendectomy, Section, Colostomy, Coronary Artery Bypass Graft, Gastric Bypass Surgery, Herniorrhaphy, Hysterectomy, Pacemaker, Tonsillectomy, Tubal Ligation Social History Information Source: Patient Smoking Status: Former Smoker Cigarettes Packs Per Day: 2 Number of Years Smokin Last Time Smoked: quit 9 yrs ago Frequency of Alcohol Use: None Hx Recreational Drug Use: No Drugs: None Hx Prescription Drug Abuse: No - Advance Directive Resuscitation Status: Full Code Surrogate healthcare decision maker:: Surrogate decision maker is Zelalem Quiñones, phone #[phone] Family History Family History: Hypertension Parental Family History Reviewed: Yes Children Family History Reviewed: Yes Sibling(s) Family History Reviewed.: Yes Medication/Allergy Home Medications: Aspirin [Adult Low Dose Aspirin EC] 81 mg PO DAILY 04/05/18 Calcium Carbonate/Vitamin D3 [Calcium 600-Vit D3 800 Tablet] 1 tab PO BID Carvedilol [Coreg 6.25 mg Tablet] 6.25 mg PO Q12 04/05/18 Gabapentin [Neurontin] 800 mg PO Q8 04/05/18 Glimepiride [Amaryl 1 mg Tablet] 1 mg PO QAM 04/05/18 Isosorbide Mononitrate [Imdur 30 mg Tablet.er] 30 mg PO DAILY 04/05/18 Meloxicam [Mobic] 15 mg PO DAILYP PRN 04/05/18 Metformin HCl [Glucophage] 1,000 mg PO BIDACBS 04/05/18 Multivitamin [Multiple Vitamins] 1 tab PO DAILY 04/05/18 Oxycodone HCl/Acetaminophen [Percocet 5-325 mg Tablet] 1 tab PO Q6HP PRN Pravastatin Sodium [Pravachol] 80 mg PO QHS 04/05/18 Telmisartan/Hydrochlorothiazid [Micardis Hct 80-25 mg Tablet] 1 tab PO DAILY 06/13 Allergies/Adverse Reactions: No Known Drug Allergies Allergy (Verified 04/04/18 18:55) surgical tape Allergy (Severe, Uncoded 04/04/18 18:55) blisters,pulls skin off Review of Systems Review of Systems: Please see history of present illness and past medical history as wall. Constitutional: No fever or chills reported. Possible low-grade fever admitted. Head : No recent chronic headaches, recent head injury. Eyes: No recent eye pain, diplopia, redness, discharge, acute visual changes. Ears: No recent chronic ear pain, acute hearing loss, ear discharge. Oral cavity: No recent ulcerations, bleeding, oral cavity discomfort. Neck: No recent acute neck pain reported. Hematologic: No recent easy bruising or bleeding. Lymphatic: No recent lymph node enlargement reported. Cardiovascular system review: See history of present illness. Respiratory system review: No hemoptysis or blood clots in the lungs reported. Mild Shortness of breath on exertion Gastrointestinal system review: Negative for any recent acute hematemesis, melena. Complains of recent abdominal pain and some nausea. Genitourinary system review: No recent acute or chronic hematuria, flank pain, UTI etc. reported. Skin system review: Negative for any recent abnormal bruising, no rash, no pruritus reported. Neurologic: No prior history of strokes, mini strokes, seizure disorder. Psychologic: No history of major psychosis or major depression reported. Musculoskeletal: Minor aches and pains reported. No acute joint swelling reported. Endocrine: No recent polyuria, polydipsia, recent heat or cold intolerance. Physical Exam Vital Signs: Temp Pulse Resp BP Pulse Ox 98.3 F 66 18 141/52 H 95 04/05/18 15:04 04/05/18 15:04 04/05/18 15:04 04/05/18 15:04 04/05/18 15:04 Intake & Output 04/04/18 04/05/18 04/06/18 06:59 06:59 06:59 Intake Total 250 2293 Output Total 0 Balance 250 2293 Weight 84.4 kg 84.4 kg Exam: GENERAL: well-nourished and in no acute distress. Alert and oriented x3 HEAD: Atraumatic, normocephalic. EYES: Pupils equal round and reactive to light, extraocular movements intact, sclera anicteric, conjunctiva are normal. ENT: TMs normal, nares patent, oropharynx clear without exudates. Moist mucous membranes. No oral ulcerations or bleeding gums noted NECK: supple without lymphadenopathy. Trachea is central. No cervical or axillary lymphadenopathy noted. Carotids are 2+, JVD WNL LUNGS: Respiration seems nonlabored, no significant accessory muscle action noted. Breath sounds clear to auscultation bilaterally and equal noted. No wheezes rales or rhonchi noted. No significant dullness noted on percussion. CHEST: Palpation of the chest wall shows no significant chest wall tenderness. HEART: [place] [employer], No PSH, 1/6 KATI aortic area, 1/6 sutton systolic murmur mitral area, no rubs, no gallops. ABDOMEN: Soft, mild lower quadrant tenderness appreciated, normoactive bowel sounds. No guarding, no rebound. No rigidity noted . No masses appreciated. EXTREMITIES: Pedal pulses are 1-2+, no calf tenderness noted. No clubbing or cyanosis. negative pedal edema noted NEUROLOGICAL: Focused neurological exam showed no significant neurologic deficit. Normal speech, no focal weakness appreciated. PSYCH: Normal mood, normal affect. Judgment and insight within normal limits. SKIN: No significant ecchymosis, skin is noted to be warm. MUSCULOSKELETAL EXAM: No significant acute joint swelling noted. Results Laboratory Results: 04/05/18 07:01 04/05/18 07:01 04/05/18 04/05/18 04/05/18 07:01 07:01 07:01 WBC 4.6 RBC 3.84 Hgb 11.2 L Hct 33.3 L MCV 87 MCH 29.1 MCHC 33.5 RDW 15.1 H Plt Count 170 Seg Neutrophils % 67.2 Lymphocytes % 24.9 Monocytes % 7.0 Eosinophils % 0.2 Basophils % 0.7 Absolute Neutrophils 3.1 Absolute Lymphocytes 1.1 Absolute Monocytes 0.3 Absolute Eosinophils 0.0 Absolute Basophils 0.0 Sodium 139.2 Potassium 3.5 L Chloride 100 Carbon Dioxide 26 Anion Gap 13 BUN 16 Creatinine 0.81 Est GFR ( Amer) > 60 Est GFR (Non-Af Amer) > 60 Glucose 98 Lactic Acid 1.0 Calcium 9.2 04/05/18 04/05/18 04/05/18 12:14 12:14 14:30 CK-MB (CK-2) 1.47 Troponin I < 0.012 NT-Pro-B Natriuret Pep Cancelled 306 04/05/18 18:27 CK-MB (CK-2) 1.13 Troponin I < 0.012 NT-Pro-B Natriuret Pep EKG Comments: Sinus rhythm, no acute ST-T wave changes are noted Impressions: Chest X-Ray 04/04/18 19:31 IMPRESSION: Chronic lung changes with no acute cardiopulmonary disease. Assessment & Plan - Diagnosis (1) Preoperative cardiovascular examination Is this a current diagnosis for this admission?: Yes (2) Appendicitis Qualifiers: Acute appendicitis type: with localized peritonitis Is this a current diagnosis for this admission?: Yes (3) Diabetes Qualifiers: Diabetes mellitus type: type 2 Diabetes mellitus complication status: without complication Is this a current diagnosis for this admission?: Yes (4) H/O non-ST elevation myocardial infarction (NSTEMI) Is this a current diagnosis for this admission?: Yes (5) HTN (hypertension) Qualifiers: Hypertension type: essential hypertension Qualified Code(s): I10 - Essential (primary) hypertension Is this a current diagnosis for this admission?: Yes (6) Coronary artery disease Qualifiers: Coronary Disease-Associated Artery/Lesion type: [place] artery [place] vs. transplanted heart: [place] heart Associated angina: without angina Qualified Code(s): I25.10 - Atherosclerotic heart disease of [place] coronary artery without angina pectoris Is this a current diagnosis for this admission?: Yes - Notes Notes: Preop cardiovascular examination: Patient has been chest pain-free for several months. There is questionable history of non-STEMI last year but currently EKG showing no evidence of prior infarction. 2D echo obtained shows normal LVEF. Regional wall motion cannot be excluded but no significant valvular abnormalities noted. Patient not noted to be in clinical CHF, therefore felt to be in stable cardiac condition to be an acceptable surgical candidate should need for surgery arise. This was discussed with Dr. Myers. Appendicitis: Terrence is to treat her with antibiotics and do surgery only if there is fever, increasing abdominal pain or guarding etc. We will leave management plans to the surgeon. Diabetes: Recommend good coverage of blood sugar with intermittent insulin as needed. History of myocardial infarction, non-STEMI in the past: Currently stable without any angina or angina equivalent symptom. Hypertension: Currently blood pressure is stable. To reduce perioperative risk, will start patient on statins and beta blockers. - Time Time Spent: 30 to 50 Minutes - CODE STATUS was discussed, patient remains full code. Surrogate decision-maker Zelalem Quiñones. Multiple medical problems were addressed. More than 50% of the time spent coordinating care, discussing management plans with involved caregivers. Management plans discussed with involved personnels. Medical decision making was of moderate to high complexity , patient's has multiple comorbidities. Medications reviewed and adjusted accordingly: Yes
[2018-04-05] MEDS: LEVOFLOXACIN 500 MG/D5W RTU 500 MG/100 ML RTUPB IV SCH (22:36)
[2018-04-05] MEDS: ATORVASTATIN CALCIUM 20 MG TABLET PO SCH (22:40)
[2018-04-06] MEDS: METRONIDAZOLE 500 MG/NS RTU 500 MG/100 ML RTUPB IV SCH ×4 (00:16→17:33)
[2018-04-06 01:18] LABS: CREATINE KINASE MB 0.91 ng/mL (<4.55); TROPONIN I 0.012 ng/mL
[2018-04-06] MEDS: NORMAL SALINE 1000 ML 1,000 ML IV PRN ×2 (03:08→16:06)
[2018-04-06 05:40] LABS: ABSOLUTE LYMPHOCYTES (AUTO) 1.1 10^3/uL (0.5-4.7); ABSOLUTE MONOCYTES (AUTO) 0.4 10^3/uL (0.1-1.4); ABSOLUTE NEUT (AUTO) 2.3 10^3/uL (1.7-8.2); BASOPHILS % (AUTO) 0.8 % (0-2); EOSINOPHILS % (AUTO) 1.1 % (0-6); HEMATOCRIT 32.2 % (36.0-47.0); HEMOGLOBIN 10.6 g/dL (12.0-15.5); LYMPHOCYTES % (AUTO) 28.2 % (13-45); MEAN CORPUSCULAR HEMOGLOBIN 28.6 pg (27.0-33.4); MEAN CORPUSCULAR VOLUME 87 fl (80-97); MONOCYTES % (AUTO) 9.4 % (3-13); PLATELET COUNT 153 10^3/uL (150-450); RED BLOOD COUNT 3.71 10^6/uL (3.72-5.28); SEGMENTED NEUTROPHILS % (AUTO) 60.5 % (42-78); TOTAL CELLS COUNTED % (AUTO) 100 %; WHITE BLOOD COUNT 3.8 10^3/uL (4.0-10.5)
[2018-04-06 05:54] LABS: ANION GAP 13 (5-19); BLOOD UREA NITROGEN 12 mg/dL (7-20); CALCIUM 8.7 mg/dL (8.4-10.2); CARBON DIOXIDE 25 mmol/L (22-30); CHLORIDE 105 mmol/L (98-107); GLUCOSE 105 mg/dL (75-110); POTASSIUM 3.2 mmol/L (3.6-5.0); SODIUM 142.7 mmol/L (137-145)
[2018-04-06] MEDS: GABAPENTIN 400 MG CAPSULE PO SCH ×3 (06:02→21:44)
[2018-04-06] MEDS ORDERED: POTASSI CL 20 MEQ/50 ML RIDER 20 MEQ/50 ML RTUPB IV ONE (09:30)
[2018-04-06] MEDS: CALCIUM CARBONATE 250 MG/VITAMIN D3 125 UNIT TABLET PO SCH (09:30)
[2018-04-06] MEDS: HYDROCHLOROTHIAZIDE 25 MG TABLET PO SCH (09:31)
[2018-04-06] MEDS: ENOXAPARIN SODIUM INJ 30 MG/0.3 ML DISP.SYRIN SUBCUT SCH (09:31)
[2018-04-06] MEDS: ASPIRIN 81 MG TABLET, CHEWABLE PO SCH (09:31)
[2018-04-06] MEDS: LOSARTAN POTASSIUM 50 MG TABLET PO SCH (09:31)
[2018-04-06] MEDS: NIFEDIPINE 30 MG TAB.ER.24 PO SCH (09:31)
[2018-04-06] MEDS: CARVEDILOL 6.25 MG TABLET PO SCH ×2 (09:31→21:44)
[2018-04-06] MEDS ORDERED: MORPHINE SULFATE 10 MG/ML INJ IV PRN (10:00)
--- NOTE | 2018-04-06 17:28 | PDOC PROGRESS REPORT ---
Subjective Progress Note for:: 04/06/18 Subjective:: Still with RLQ pains but no worse than yesterday. Tolerating clears. Has loose stools less frequent today Reason For Visit: ACUTE APPENDICITICS Physical Exam Vital Signs: Temp Pulse Resp BP Pulse Ox 97.9 F 91 18 147/88 H 94 04/06/18 07:56 04/06/18 07:56 04/06/18 07:56 04/06/18 07:56 04/06/18 07:56 Intake & Output 04/05/18 04/06/18 04/07/18 06:59 06:59 06:59 Intake Total 250 3493 100 Output Total 0 650 Balance 250 2843 100 Weight 84.4 kg 85.8 kg Exam: abd is soft with mod tenderness RLQ Results Laboratory Results: 04/06/18 04:25 04/06/18 04:25 04/06/18 04/06/18 04:25 04:25 WBC 3.8 L RBC 3.71 L Hgb 10.6 L Hct 32.2 L MCV 87 MCH 28.6 MCHC 33.0 RDW 15.0 H Plt Count 153 Seg Neutrophils % 60.5 Lymphocytes % 28.2 Monocytes % 9.4 Eosinophils % 1.1 Basophils % 0.8 Absolute Neutrophils 2.3 Absolute Lymphocytes 1.1 Absolute Monocytes 0.4 Absolute Eosinophils 0.0 Absolute Basophils 0.0 Sodium 142.7 Potassium 3.2 L Chloride 105 Carbon Dioxide 25 Anion Gap 13 BUN 12 Creatinine 0.88 Est GFR ( Amer) > 60 Est GFR (Non-Af Amer) > 60 Glucose 105 Calcium 8.7 04/05/18 04/05/18 04/05/18 12:14 12:14 14:30 CK-MB (CK-2) 1.47 Troponin I < 0.012 NT-Pro-B Natriuret Pep Cancelled 306 04/05/18 04/06/18 18:27 00:18 CK-MB (CK-2) 1.13 0.91 Troponin I < 0.012 0.012 NT-Pro-B Natriuret Pep Impressions: Chest X-Ray 04/04/18 19:31 IMPRESSION: Chronic lung changes with no acute cardiopulmonary disease. Assessment & Plan - Time Time Spent with patient: 15-24 minutes - Inpatient Certification Based on my medical assessment, after consideration of the patient's comorbidities, presenting symptoms, or acuity I expect that the services needed warrant INPATIENT care.: Yes I certify that my determination is in accordance with my understanding of Medicare's requirements for reasonable and necessary INPATIENT services [42 CFR 412.3e].: Yes Medical Necessity: Need For IV Fluids, Need for Pain Control, Need for IV Antibiotics, Risk of Complication if Not Cared For in Hospital - Plan Summary Plan Summary: Stable on non operative mx of Acut Appendicitis Continue IV antibiotics Gradually increse po intake with full liquids
[2018-04-06] MEDS: OXYCODONE-ACETAMINOPHEN 5-325 MG TABLET PO PRN (20:06)
[2018-04-06] MEDS: LEVOFLOXACIN 500 MG/D5W RTU 500 MG/100 ML RTUPB IV SCH (21:42)
[2018-04-06] MEDS: ATORVASTATIN CALCIUM 20 MG TABLET PO SCH (21:44)
--- NOTE | 2018-04-06 22:42 | PDOC PROGRESS REPORT ---
Subjective Progress Note for:: 04/06/18 Subjective:: SAVANNAH BOLDEN is a 77 year old female with a PMH of HLD, HTN, a PMHx of an OR one year ago, breast cancer with a LT mastectomy in 2004 and a PSHx of cholecystectomy presents with a two-week history of RLQ abdominal pain. CT abdomen/pelvis reveals appendicitis. Admitted to surgical service with hospitalist and cardiology consulting. The patient was seen this morning on rounds, She is resting comfortably in bed on room air. She states that her RLQ pain is still present but, so far, she has only been taking tylenol for pain control - she does not want narcotics at this time. The patient states she is still having 'explosive' diarrhea everyday. Stool sample sent to the lab yesterday was negative for c.diff. Upon assessment , lungs are clear to auscultation, S1S2 w/systolic murmur, palpable pulses in all extremities, trace peripheral edema, +BS, RLQ & RUQ +TTP. Plan, continue to manage appendicitis with IV antibiotics (per Surgicalist). ECHOcardiogram showed normal LVEF, mild LVH, and mild MR. Cardiology and Hospitalist have cleared patient for surgery, should she need it. Reason For Visit: ACUTE APPENDICITICS Physical Exam Vital Signs: Temp Pulse Resp BP Pulse Ox 98.7 F 85 16 133/54 H 96 04/06/18 19:34 04/06/18 19:34 04/06/18 19:34 04/06/18 19:34 04/06/18 19:34 Intake & Output 04/05/18 04/06/18 04/07/18 06:59 06:59 06:59 Intake Total 250 3493 3693 Output Total 0 650 Balance 250 2843 3693 Weight 84.4 kg 85.8 kg General appearance: PRESENT: no acute distress, well-developed, well-nourished Head exam: PRESENT: atraumatic, normocephalic Eye exam: PRESENT: conjunctiva pink, EOMI, PERRLA. ABSENT: scleral icterus Ear exam: PRESENT: normal external ear exam Mouth exam: PRESENT: moist, tongue midline Neck exam: ABSENT: carotid bruit, JVD, lymphadenopathy, thyromegaly Respiratory exam: PRESENT: clear to auscultation herminia, symmetrical, unlabored. ABSENT: rales, rhonchi, wheezes Cardiovascular exam: PRESENT: RRR. ABSENT: diastolic murmur, rubs, systolic murmur Pulses: PRESENT: normal radial pulses, normal dorsalis pedis pul Vascular exam: PRESENT: normal capillary refill GI/Abdominal exam: PRESENT: normal bowel sounds, soft, tenderness - RLQ. ABSENT : distended, guarding, mass, organolmegaly, rebound Rectal exam: PRESENT: deferred Extremities exam: PRESENT: full ROM. ABSENT: calf tenderness, clubbing, pedal edema Musculoskeletal exam: PRESENT: ambulatory, full ROM Neurological exam: PRESENT: alert, awake, oriented to person, oriented to place , oriented to time, oriented to situation Psychiatric exam: PRESENT: appropriate affect, normal mood Skin exam: PRESENT: dry, erythema - DORSAL ASPECT OF R FOOT, intact, warm Results Laboratory Results: 04/06/18 04:25 04/06/18 04:25 04/06/18 04/06/18 04:25 04:25 WBC 3.8 L RBC 3.71 L Hgb 10.6 L Hct 32.2 L MCV 87 MCH 28.6 MCHC 33.0 RDW 15.0 H Plt Count 153 Seg Neutrophils % 60.5 Lymphocytes % 28.2 Monocytes % 9.4 Eosinophils % 1.1 Basophils % 0.8 Absolute Neutrophils 2.3 Absolute Lymphocytes 1.1 Absolute Monocytes 0.4 Absolute Eosinophils 0.0 Absolute Basophils 0.0 Sodium 142.7 Potassium 3.2 L Chloride 105 Carbon Dioxide 25 Anion Gap 13 BUN 12 Creatinine 0.88 Est GFR ( Amer) > 60 Est GFR (Non-Af Amer) > 60 Glucose 105 Calcium 8.7 04/05/18 04/05/18 04/05/18 12:14 12:14 14:30 CK-MB (CK-2) 1.47 Troponin I < 0.012 NT-Pro-B Natriuret Pep Cancelled 306 04/05/18 04/06/18 18:27 00:18 CK-MB (CK-2) 1.13 0.91 Troponin I < 0.012 0.012 NT-Pro-B Natriuret Pep Impressions: Chest X-Ray 04/04/18 19:31 IMPRESSION: Chronic lung changes with no acute cardiopulmonary disease. Status: Imported from PACS Assessment & Plan - Diagnosis (1) Appendicitis Qualifiers: Acute appendicitis type: with localized peritonitis Is this a current diagnosis for this admission?: Yes Plan: Management per surgery Currently on Flagyl and Levaquin Per Dr. Gomez - no plans for surgery at this time, continue to manage appendicitis with antibiotics The patient remains afebrile and nontoxic appearing (2) HTN (hypertension) Qualifiers: Hypertension type: essential hypertension Qualified Code(s): I10 - Essential (primary) hypertension Is this a current diagnosis for this admission?: Yes Plan: Patient endorses history of HTN Resume home dose Coreg, HCTZ, and IMDUR ASA and statin therapy (3) H/O non-ST elevation myocardial infarction (NSTEMI) Is this a current diagnosis for this admission?: Yes Plan: Hx of NSTEMI 1 year ago following prolonged lumbar fusion surgery Patient states she experienced her NSTEMI immediately postop while in PACU No stents placed, NSTEMI was managed medically Patient will require cardiac clearance prior to appendectomy EKG shows NSR, no evidence of infarct or ischemia Serial troponin<0.012, no longer trending ECHOcardiogram showed normal LVEF, mild LVH, and mild MR Cardiology consulted, they recommend placing the patient on a beta siddharth and statin, otherwisethe patient is cleared for surgery (4) Diabetes Qualifiers: Diabetes mellitus type: type 2 Diabetes mellitus complication status: without complication Is this a current diagnosis for this admission?: Yes Plan: Patient endorses history of diabetes Accu-Cheks before meals at bedtime Humalog sliding scale insulin coverage (5) Diarrhea Qualifiers: Diarrhea type: unspecified type Qualified Code(s): R19.7 - Diarrhea, unspecified Is this a current diagnosis for this admission?: Yes Plan: Patient endorses daily "explosive" diarrhea x 2 weeks States she was recently treated with antibiotics for PNA (January 2018) C.diff PCR NEGATIVE and stool culture pending
[2018-04-07] MEDS: NORMAL SALINE 1000 ML 1,000 ML IV PRN ×3 (04:43→18:11)
[2018-04-07] MEDS: METRONIDAZOLE 500 MG/NS RTU 500 MG/100 ML RTUPB IV SCH ×4 (05:15→17:00)
[2018-04-07] MEDS: GABAPENTIN 400 MG CAPSULE PO SCH ×3 (05:16→23:30)
[2018-04-07 05:26] LABS: ABSOLUTE EOSINOPHILS # (AUTO) 0.1 10^3/uL (0.0-0.6); ABSOLUTE LYMPHOCYTES (AUTO) 0.9 10^3/uL (0.5-4.7); ABSOLUTE MONOCYTES (AUTO) 0.4 10^3/uL (0.1-1.4); ABSOLUTE NEUT (AUTO) 3.2 10^3/uL (1.7-8.2); BASOPHILS % (AUTO) 0.6 % (0-2); HEMATOCRIT 32.3 % (36.0-47.0); HEMOGLOBIN 10.9 g/dL (12.0-15.5); MEAN CORPUSCULAR HEMOGLOBIN 29.2 pg (27.0-33.4); MEAN CORPUSCULAR HGB CONC 33.6 g/dL (32.0-36.0); MEAN CORPUSCULAR VOLUME 87 fl (80-97); MONOCYTES % (AUTO) 8.6 % (3-13); PLATELET COUNT 149 10^3/uL (150-450); RED BLOOD COUNT 3.72 10^6/uL (3.72-5.28); RED CELL DISTRIBUTION WIDTH 15.5 % (11.5-14.0); SEGMENTED NEUTROPHILS % (AUTO) 68.8 % (42-78); TOTAL CELLS COUNTED % (AUTO) 100 %; WHITE BLOOD COUNT 4.6 10^3/uL (4.0-10.5)
[2018-04-07 06:05] LABS: ANION GAP 11 (5-19); BLOOD UREA NITROGEN 11 mg/dL (7-20); CALCIUM 8.8 mg/dL (8.4-10.2); CARBON DIOXIDE 24 mmol/L (22-30); CHLORIDE 108 mmol/L (98-107); GLUCOSE 121 mg/dL (75-110); POTASSIUM 3.1 mmol/L (3.6-5.0); SODIUM 143.2 mmol/L (137-145)
[2018-04-07] MEDS: HYDROCHLOROTHIAZIDE 25 MG TABLET PO SCH (10:16)
[2018-04-07] MEDS: POTASSIUM CHLORIDE 10 MEQ CAPSULE.ER PO SCH (10:16)
[2018-04-07] MEDS: ASPIRIN 81 MG TABLET, CHEWABLE PO SCH (10:16)
[2018-04-07] MEDS: LOSARTAN POTASSIUM 50 MG TABLET PO SCH (10:16)
[2018-04-07] MEDS: CALCIUM CARBONATE 250 MG/VITAMIN D3 125 UNIT TABLET PO SCH (10:16)
[2018-04-07] MEDS: NIFEDIPINE 30 MG TAB.ER.24 PO SCH (10:17)
[2018-04-07] MEDS: CARVEDILOL 6.25 MG TABLET PO SCH ×2 (10:17→23:23)
[2018-04-07] MEDS: ENOXAPARIN SODIUM INJ 30 MG/0.3 ML DISP.SYRIN SUBCUT SCH (10:17)
[2018-04-07] MEDS: POTASSI CL 20 MEQ/50 ML RIDER 20 MEQ/50 ML RTUPB IV SCH ×2 (10:17→13:39)
[2018-04-07] MEDS ORDERED: MAGNESIUM SULFATE 4 GM/100 ML RTUPB IV ONE (11:00)
[2018-04-07] MEDS: OXYCODONE-ACETAMINOPHEN 5-325 MG TABLET PO PRN (13:46)
--- NOTE | 2018-04-07 15:36 | PDOC PROGRESS REPORT ---
Subjective Progress Note for:: 04/07/18 Subjective:: RLQ pains Reason For Visit: ACUTE APPENDICITICS Physical Exam Vital Signs: Temp Pulse Resp BP Pulse Ox 98.5 F 78 16 107/57 L 93 04/07/18 10:50 04/07/18 14:00 04/07/18 10:50 04/07/18 10:50 04/07/18 10:50 Intake & Output 04/06/18 04/07/18 04/08/18 06:59 06:59 06:59 Intake Total 3493 4670 945 Output Total 650 1800 400 Balance 2843 2870 545 Weight 85.8 kg 88.1 kg Exam: Tolerating liquids well.Still with RLQ pains and tenderness but less than yesterday. Afebrile Results Laboratory Results: 04/07/18 04:45 04/07/18 04:45 04/07/18 04/07/18 04/07/18 04:45 04:45 04:45 WBC 4.6 RBC 3.72 Hgb 10.9 L Hct 32.3 L MCV 87 MCH 29.2 MCHC 33.6 RDW 15.5 H Plt Count 149 L Seg Neutrophils % 68.8 Lymphocytes % 19.0 Monocytes % 8.6 Eosinophils % 3.0 Basophils % 0.6 Absolute Neutrophils 3.2 Absolute Lymphocytes 0.9 Absolute Monocytes 0.4 Absolute Eosinophils 0.1 Absolute Basophils 0.0 Sodium 143.2 Potassium 3.1 L Chloride 108 H Carbon Dioxide 24 Anion Gap 11 BUN 11 Creatinine 0.83 Est GFR ( Amer) > 60 Est GFR (Non-Af Amer) > 60 Glucose 121 H Calcium 8.8 Magnesium 1.2 L* 04/05/18 04/05/18 04/05/18 12:14 12:14 14:30 CK-MB (CK-2) 1.47 Troponin I < 0.012 NT-Pro-B Natriuret Pep Cancelled 306 04/05/18 04/06/18 18:27 00:18 CK-MB (CK-2) 1.13 0.91 Troponin I < 0.012 0.012 NT-Pro-B Natriuret Pep Impressions: Chest X-Ray 04/04/18 19:31 IMPRESSION: Chronic lung changes with no acute cardiopulmonary disease. Assessment & Plan - Time Time Spent with patient: 15-24 minutes - Inpatient Certification Medical Necessity: Need For IV Fluids, Need for Pain Control, Need for IV Antibiotics, Need for Surgery, Risk of Complication if Not Cared For in Hospital - Plan Summary Plan Summary: Continue Medical mx of acute appendicitis. Will gradually increase diet
[2018-04-07] MEDS: INSULIN REG, HUMAN 100 UNIT/ML 3 ML VIAL (PYX) SUBCUT PRN (16:59)
--- NOTE | 2018-04-07 20:42 | PDOC PROGRESS REPORT ---
Subjective Progress Note for:: 04/07/18 Subjective:: SAVANNAH BOLDEN is a 77 year old female with a PMH of HLD, HTN, a PMHx of an HI one year ago, breast cancer with a LT mastectomy in 2004 and a PSHx of cholecystectomy presents with a two-week history of RLQ abdominal pain. CT abdomen/pelvis reveals appendicitis. Admitted to surgical service with hospitalist and cardiology consulting. The patient was seen this morning on rounds, She is resting comfortably in bed on room air. She states that her RLQ pain is still present but it is tolerable. The patient states she is still having 'explosive' diarrhea everyday. Stool sample sent to the lab yesterday was negative for c.diff, stool culture pending. Upon assessment, lungs are clear to auscultation, S1S2 w/systolic murmur, palpable pulses in all extremities, trace peripheral edema, +BS, diffuse abdominal tenderness, worse in the RLQ +TTP. Plan, continue to manage appendicitis with IV antibiotics (per Surgicalist). Reason For Visit: ACUTE APPENDICITICS Physical Exam Vital Signs: Temp Pulse Resp BP Pulse Ox 98.2 F 75 18 91/61 L 93 04/07/18 16:11 04/07/18 16:11 04/07/18 16:11 04/07/18 16:11 04/07/18 16:11 Intake & Output 04/06/18 04/07/18 04/08/18 06:59 06:59 06:59 Intake Total 3493 4670 3051 Output Total 650 1800 1000 Balance 2843 2870 2051 Weight 85.8 kg 88.1 kg General appearance: PRESENT: no acute distress, well-developed, well-nourished Head exam: PRESENT: atraumatic, normocephalic Eye exam: PRESENT: conjunctiva pink, EOMI, PERRLA. ABSENT: scleral icterus Ear exam: PRESENT: normal external ear exam Mouth exam: PRESENT: moist, tongue midline Neck exam: ABSENT: carotid bruit, JVD, lymphadenopathy, thyromegaly Respiratory exam: PRESENT: clear to auscultation herminia. ABSENT: rales, rhonchi, wheezes Cardiovascular exam: PRESENT: RRR, +S1, +S2, systolic murmur - CHRONIC. ABSENT : diastolic murmur, rubs Pulses: PRESENT: normal radial pulses, normal dorsalis pedis pul Vascular exam: PRESENT: normal capillary refill GI/Abdominal exam: PRESENT: normal bowel sounds, soft, tenderness - DIFFUSE TENDERNESS, WORSE IN THE RLQ. ABSENT: distended, guarding, mass, organolmegaly , rebound Rectal exam: PRESENT: deferred Extremities exam: PRESENT: full ROM. ABSENT: calf tenderness, clubbing, pedal edema Musculoskeletal exam: PRESENT: ambulatory, full ROM Neurological exam: PRESENT: alert, awake, oriented to person, oriented to place , oriented to time, oriented to situation Psychiatric exam: PRESENT: appropriate affect, normal mood Skin exam: PRESENT: dry, intact, warm Results Laboratory Results: 04/07/18 04:45 04/07/18 04:45 04/07/18 04/07/18 04/07/18 04:45 04:45 04:45 WBC 4.6 RBC 3.72 Hgb 10.9 L Hct 32.3 L MCV 87 MCH 29.2 MCHC 33.6 RDW 15.5 H Plt Count 149 L Seg Neutrophils % 68.8 Lymphocytes % 19.0 Monocytes % 8.6 Eosinophils % 3.0 Basophils % 0.6 Absolute Neutrophils 3.2 Absolute Lymphocytes 0.9 Absolute Monocytes 0.4 Absolute Eosinophils 0.1 Absolute Basophils 0.0 Sodium 143.2 Potassium 3.1 L Chloride 108 H Carbon Dioxide 24 Anion Gap 11 BUN 11 Creatinine 0.83 Est GFR ( Amer) > 60 Est GFR (Non-Af Amer) > 60 Glucose 121 H Calcium 8.8 Magnesium 1.2 L* 04/05/18 20:05 Stool - Stool - Final 04/05/18 04/05/18 04/05/18 12:14 12:14 14:30 CK-MB (CK-2) 1.47 Troponin I < 0.012 NT-Pro-B Natriuret Pep Cancelled 306 04/05/18 04/06/18 18:27 00:18 CK-MB (CK-2) 1.13 0.91 Troponin I < 0.012 0.012 NT-Pro-B Natriuret Pep Impressions: Chest X-Ray 04/04/18 19:31 IMPRESSION: Chronic lung changes with no acute cardiopulmonary disease. Status: Imported from PACS Assessment & Plan - Diagnosis (1) Appendicitis Qualifiers: Acute appendicitis type: with localized peritonitis Is this a current diagnosis for this admission?: Yes Plan: Management per surgery Currently on Flagyl and Levaquin Per Dr. Gomez - no plans for surgery at this time, continue to manage appendicitis with antibiotics The patient remains afebrile and nontoxic appearing (2) HTN (hypertension) Qualifiers: Hypertension type: essential hypertension Qualified Code(s): I10 - Essential (primary) hypertension Is this a current diagnosis for this admission?: Yes Plan: Patient endorses history of HTN Resume home dose Coreg, HCTZ, and IMDUR ASA and statin therapy (3) H/O non-ST elevation myocardial infarction (NSTEMI) Is this a current diagnosis for this admission?: Yes Plan: Hx of NSTEMI 1 year ago following prolonged lumbar fusion surgery Patient states she experienced her NSTEMI immediately postop while in PACU No stents placed, NSTEMI was managed medically Patient will require cardiac clearance prior to appendectomy EKG shows NSR, no evidence of infarct or ischemia Serial troponin<0.012, no longer trending ECHOcardiogram showed normal LVEF, mild LVH, and mild MR Cardiology consulted, they recommend placing the patient on a beta siddharth and statin, otherwise the patient is cleared for surgery (4) Diabetes Qualifiers: Diabetes mellitus type: type 2 Diabetes mellitus complication status: without complication Is this a current diagnosis for this admission?: Yes Plan: Patient endorses history of diabetes Accu-Cheks before meals at bedtime Humalog sliding scale insulin coverage (5) Diarrhea Qualifiers: Diarrhea type: unspecified type Qualified Code(s): R19.7 - Diarrhea, unspecified Is this a current diagnosis for this admission?: Yes Plan: Patient endorses daily "explosive" diarrhea x 2 weeks States she was recently treated with antibiotics for PNA (January 2018) C.diff PCR NEGATIVE and stool culture pending If stool culture negative, will consider adding Immodium PRN (6) Hypokalemia Is this a current diagnosis for this admission?: Yes Plan: Likely secondary to GI loss stemming from diarrhea IV and PO potassium replacement Stool culture pending. If negative, will consider adding immodium PRN - Time Time Spent with patient: 15-24 minutes Medications reviewed and adjusted accordingly: Yes Anticipated discharge: Home - Inpatient Certification Based on my medical assessment, after consideration of the patient's comorbidities, presenting symptoms, or acuity I expect that the services needed warrant INPATIENT care.: Yes I certify that my determination is in accordance with my understanding of Medicare's requirements for reasonable and necessary INPATIENT services [42 CFR 412.3e].: Yes Medical Necessity: Need for IV Antibiotics, Risk of Complication if Not Cared For in Hospital - Plan Summary Plan Summary: CONTINUE IV ABX. HTN AND DM ADEQUATELY CONTROLLED. IV ELECTROLYTE REPLACEMENT.
[2018-04-07] MEDS: LEVOFLOXACIN 500 MG/D5W RTU 500 MG/100 ML RTUPB IV SCH (23:25)
[2018-04-07] MEDS: ATORVASTATIN CALCIUM 20 MG TABLET PO SCH (23:31)
[2018-04-08] MEDS: METRONIDAZOLE 500 MG/NS RTU 500 MG/100 ML RTUPB IV SCH ×4 (00:42→17:56)
[2018-04-08] MEDS: GABAPENTIN 400 MG CAPSULE PO SCH ×3 (06:00→21:28)
[2018-04-08] MEDS: ASPIRIN 81 MG TABLET, CHEWABLE PO SCH (09:43)
[2018-04-08] MEDS: CALCIUM CARBONATE 250 MG/VITAMIN D3 125 UNIT TABLET PO SCH (09:43)
[2018-04-08] MEDS: POTASSIUM CHLORIDE 10 MEQ CAPSULE.ER PO SCH (09:43)
[2018-04-08] MEDS: ENOXAPARIN SODIUM INJ 30 MG/0.3 ML DISP.SYRIN SUBCUT SCH (09:54)
[2018-04-08] MEDS ORDERED: NORMAL SALINE 1000 ML 1,000 ML IV ONE (10:00)
[2018-04-08 11:29] LABS: ABSOLUTE EOSINOPHILS # (AUTO) 0.1 10^3/uL (0.0-0.6); ABSOLUTE LYMPHOCYTES (AUTO) 0.9 10^3/uL (0.5-4.7); ABSOLUTE MONOCYTES (AUTO) 0.3 10^3/uL (0.1-1.4); ABSOLUTE NEUT (AUTO) 3.8 10^3/uL (1.7-8.2); BASOPHILS % (AUTO) 0.8 % (0-2); HEMATOCRIT 33.8 % (36.0-47.0); HEMOGLOBIN 11.1 g/dL (12.0-15.5); LYMPHOCYTES % (AUTO) 17.2 % (13-45); MEAN CORPUSCULAR HEMOGLOBIN 28.5 pg (27.0-33.4); MEAN CORPUSCULAR HGB CONC 32.9 g/dL (32.0-36.0); MEAN CORPUSCULAR VOLUME 87 fl (80-97); MONOCYTES % (AUTO) 6.3 % (3-13); PLATELET COUNT 164 10^3/uL (150-450); RED CELL DISTRIBUTION WIDTH 15.6 % (11.5-14.0); SEGMENTED NEUTROPHILS % (AUTO) 73.7 % (42-78); TOTAL CELLS COUNTED % (AUTO) 100 %; WHITE BLOOD COUNT 5.2 10^3/uL (4.0-10.5)
[2018-04-08 11:52] LABS: ALANINE AMINOTRANSFERASE 44 U/L (9-52); ALBUMIN 2.9 g/dL (3.5-5.0); ALKALINE PHOSPHATASE 61 U/L (38-126); ANION GAP 14 (5-19); ASPARTATE AMINO TRANSFERASE 47 U/L (14-36); BILIRUBIN,DIRECT 0.3 mg/dL (0.0-0.4); BILIRUBIN,TOTAL 0.3 mg/dL (0.2-1.3); BLOOD UREA NITROGEN 10 mg/dL (7-20); CALCIUM 8.7 mg/dL (8.4-10.2); CARBON DIOXIDE 20 mmol/L (22-30); CHLORIDE 108 mmol/L (98-107); GLUCOSE 163 mg/dL (75-110); POTASSIUM 3.9 mmol/L (3.6-5.0); SODIUM 141.9 mmol/L (137-145); TOTAL PROTEIN 5.7 g/dL (6.3-8.2)
[2018-04-08] MEDS ORDERED: LOPERAMIDE HCL ORAL SOLN 1 MG/5 ML UDC PO PRN (12:30)
--- NOTE | 2018-04-08 16:16 | RADIOLOGY REPORT (SQ) ---
EXAM DESCRIPTION: VENOUS UNILATERAL LOWER COMPLETED DATE/TIME: 04/08/2018 4:08 pm REASON FOR STUDY: eval for dvt/superficial clot RLE below the knee COMPARISON: None. TECHNIQUE: Dynamic and static braswell scale and color images acquired of the right leg venous system. S elected spectral images acquired with additional compression and augmentation maneuvers. The contrala teral common femoral vein and saphenofemoral junction were also imaged. Images stored on PACS. LIMITATIONS: None. FINDINGS: COMMON FEMORAL: Normal phasicity, compression and augmentation. No visualized echogenic ma terial on braswell scale. No defects on color images. FEMORAL: Normal compression and augmentation. No visualized echogenic material on braswell scale. No defe cts on color images. POPLITEAL: Normal compression, augmentation. No visualized echogenic material on braswell scale. No defec ts on color images. CALF VESSELS: Normal compression, augmentation. No visualized echogenic material on braswell scale. No de fects on color images. GSV and SSV: Normal compression, augmentation. No visualized echogenic material on braswell scale. No def ects on color images. ANY DEEP VENOUS INSUFFICIENCY: Not evaluated. ANY EVIDENCE OF POPLITEAL CYST: No. OTHER: No other significant finding. CONTRALATERAL COMMON FEMORAL VEIN AND SAPHENOFEMORAL JUNCTION: Normal phasicity, compression and augmentation. No visualized echogenic material on braswell scale. No de fects on color images. IMPRESSION: NO EVIDENCE DVT OR SVT IN THE RIGHT LEG. TECHNICAL DOCUMENTATION: JOB ID: [id number] 1919 [employer]- All Rights Reserved Reading location - IP/workstation name: [email or web address]
--- NOTE | 2018-04-08 17:33 | PDOC PROGRESS REPORT ---
Subjective Progress Note for:: 04/08/18 Reason For Visit: ACUTE APPENDICITICS Patient states she feels better than when she came in; she is reluctant to undergo surgery. Physical Exam Vital Signs: Temp Pulse Resp BP Pulse Ox 99.1 F 77 18 102/58 L 92 04/08/18 10:57 04/08/18 10:57 04/08/18 10:57 04/08/18 10:57 04/08/18 10:57 Intake & Output 04/07/18 04/08/18 04/09/18 06:59 06:59 06:59 Intake Total 4670 3251 1850 Output Total 1800 1000 400 Balance 2870 2251 1450 Weight 88.1 kg 88.9 kg General appearance: PRESENT: no acute distress GI/Abdominal exam: PRESENT: other - Tender in the right lower quadrant but the remainder the abdomen is soft Results Laboratory Results: 04/08/18 10:48 04/08/18 10:48 04/08/18 04/08/18 10:48 10:48 WBC 5.2 RBC 3.90 Hgb 11.1 L Hct 33.8 L MCV 87 MCH 28.5 MCHC 32.9 RDW 15.6 H Plt Count 164 Seg Neutrophils % 73.7 Lymphocytes % 17.2 Monocytes % 6.3 Eosinophils % 2.0 Basophils % 0.8 Absolute Neutrophils 3.8 Absolute Lymphocytes 0.9 Absolute Monocytes 0.3 Absolute Eosinophils 0.1 Absolute Basophils 0.0 Sodium 141.9 Potassium 3.9 Chloride 108 H Carbon Dioxide 20 L Anion Gap 14 BUN 10 Creatinine 0.79 Est GFR ( Amer) > 60 Est GFR (Non-Af Amer) > 60 Glucose 163 H Calcium 8.7 Magnesium 1.6 Total Bilirubin 0.3 AST 47 H ALT 44 Alkaline Phosphatase 61 Total Protein 5.7 L Albumin 2.9 L 04/05/18 20:05 Stool - Stool - Final 04/05/18 20:05 Stool - Stool Stool Culture - Final NO SALMONELLA, SHIGELLA, CAMPYLOBACTER, OR E.COLI 0157 RECOVERED. NEGATIVE FOR SHIGA TOXINS 1&2. 04/05/18 04/05/18 04/05/18 12:14 12:14 14:30 CK-MB (CK-2) 1.47 Troponin I < 0.012 NT-Pro-B Natriuret Pep Cancelled 306 04/05/18 04/06/18 18:27 00:18 CK-MB (CK-2) 1.13 0.91 Troponin I < 0.012 0.012 NT-Pro-B Natriuret Pep Impressions: Chest X-Ray 04/04/18 19:31 IMPRESSION: Chronic lung changes with no acute cardiopulmonary disease. Venous Doppler Study 04/08/18 00:00 IMPRESSION: NO EVIDENCE DVT OR SVT IN THE RIGHT LEG. Assessment & Plan - Diagnosis (1) Acute appendicitis Qualifiers: Acute appendicitis type: with localized peritonitis Qualified Code(s): K35.3 - Acute appendicitis with localized peritonitis Is this a current diagnosis for this admission?: Yes Plan: Slightly improved clinically; patient expresses her disinterest in undergoing surgery. Discussion/recommendations: 1. The patient now has diarrhea; she remains on Levaquin and Flagyl. Her white count is normal and she has no fever. Her C. difficile toxin is negative. My clinical experience with managing acute appendicitis nonoperatively is nil; therefore I am uncertain as to how to recommend ongoing management particularly with regards to risks of ongoing antibiotic therapy in this 77-year-old white female. 2. Patient has been cleared from a cardiac standpoint; her perioperative risk for an acute myocardial infarction is considered to be low. 3. We will revisit management options with patient tomorrow. (2) Coronary artery disease Qualifiers: Coronary Disease-Associated Artery/Lesion type: [place] artery [place] vs. transplanted heart: [place] heart Associated angina: without angina Qualified Code(s): I25.10 - Atherosclerotic heart disease of [place] coronary artery without angina pectoris Is this a current diagnosis for this admission?: Yes (3) Diabetes Qualifiers: Diabetes mellitus type: type 2 Diabetes mellitus complication status: without complication Is this a current diagnosis for this admission?: Yes (4) Diarrhea Qualifiers: Diarrhea type: unspecified type Qualified Code(s): R19.7 - Diarrhea, unspecified Is this a current diagnosis for this admission?: Yes
--- NOTE | 2018-04-08 19:20 | PDOC PROGRESS REPORT ---
Subjective Progress Note for:: 04/08/18 Subjective:: SAVANNAH BOLDEN is a 77 year old female with a PMH of HLD, HTN, a PMHx of an [place] one year ago, breast cancer with a LT mastectomy in 2004 and a PSHx of cholecystectomy presents with a two-week history of RLQ abdominal pain. CT abdomen/pelvis reveals appendicitis. Admitted to surgical service with hospitalist and cardiology consulting. The patient was seen this morning on rounds, She is resting comfortably in bed on room air. She states that her RLQ pain is still present but it is tolerable. The patient states her diarrhea has improved, she states that she had a formed bowel movement this morning. Upon assessment, lungs are clear to auscultation, S1S2 w/systolic murmur, palpable pulses in all extremities, trace peripheral edema, +BS, diffuse abdominal tenderness, worse in the RLQ +TTP. Plan, continue to manage appendicitis with IV antibiotics (per Surgicalist). Reason For Visit: ACUTE APPENDICITICS Physical Exam Vital Signs: Temp Pulse Resp BP Pulse Ox 98.7 F 76 16 103/63 96 04/08/18 15:11 04/08/18 15:11 04/08/18 15:11 04/08/18 15:11 04/08/18 15:11 Intake & Output 04/07/18 04/08/18 04/09/18 06:59 06:59 06:59 Intake Total 4670 3251 2550 Output Total 1800 1000 900 Balance 2870 2251 1650 Weight 88.1 kg 88.9 kg General appearance: PRESENT: no acute distress, well-developed, well-nourished Head exam: PRESENT: atraumatic, normocephalic Eye exam: PRESENT: conjunctiva pink, EOMI, PERRLA. ABSENT: scleral icterus Ear exam: PRESENT: normal external ear exam Mouth exam: PRESENT: moist, tongue midline Neck exam: ABSENT: carotid bruit, JVD, lymphadenopathy, thyromegaly Respiratory exam: PRESENT: clear to auscultation herminia. ABSENT: rales, rhonchi, wheezes Cardiovascular exam: PRESENT: RRR. ABSENT: diastolic murmur, rubs, systolic murmur Pulses: PRESENT: normal dorsalis pedis pul Vascular exam: PRESENT: normal capillary refill GI/Abdominal exam: PRESENT: normal bowel sounds, soft, tenderness - RLQ AND RUQ. ABSENT: distended, guarding, mass, organolmegaly, rebound Rectal exam: PRESENT: deferred Extremities exam: PRESENT: full ROM. ABSENT: calf tenderness, clubbing, pedal edema Neurological exam: PRESENT: alert, awake, oriented to person, oriented to place , oriented to time, oriented to situation Psychiatric exam: PRESENT: appropriate affect. ABSENT: homicidal ideation, suicidal ideation Skin exam: PRESENT: dry, intact, warm. ABSENT: cyanosis, rash Results Laboratory Results: 04/08/18 10:48 04/08/18 10:48 04/08/18 04/08/18 10:48 10:48 WBC 5.2 RBC 3.90 Hgb 11.1 L Hct 33.8 L MCV 87 MCH 28.5 MCHC 32.9 RDW 15.6 H Plt Count 164 Seg Neutrophils % 73.7 Lymphocytes % 17.2 Monocytes % 6.3 Eosinophils % 2.0 Basophils % 0.8 Absolute Neutrophils 3.8 Absolute Lymphocytes 0.9 Absolute Monocytes 0.3 Absolute Eosinophils 0.1 Absolute Basophils 0.0 Sodium 141.9 Potassium 3.9 Chloride 108 H Carbon Dioxide 20 L Anion Gap 14 BUN 10 Creatinine 0.79 Est GFR ( Amer) > 60 Est GFR (Non-Af Amer) > 60 Glucose 163 H Calcium 8.7 Magnesium 1.6 Total Bilirubin 0.3 AST 47 H ALT 44 Alkaline Phosphatase 61 Total Protein 5.7 L Albumin 2.9 L 04/05/18 20:05 Stool - Stool - Final 04/05/18 20:05 Stool - Stool Stool Culture - Final NO SALMONELLA, SHIGELLA, CAMPYLOBACTER, OR E.COLI 0157 RECOVERED. NEGATIVE FOR SHIGA TOXINS 1&2. 04/05/18 04/05/18 04/05/18 12:14 12:14 14:30 CK-MB (CK-2) 1.47 Troponin I < 0.012 NT-Pro-B Natriuret Pep Cancelled 306 04/05/18 04/06/18 18:27 00:18 CK-MB (CK-2) 1.13 0.91 Troponin I < 0.012 0.012 NT-Pro-B Natriuret Pep Impressions: Chest X-Ray 04/04/18 19:31 IMPRESSION: Chronic lung changes with no acute cardiopulmonary disease. Venous Doppler Study 04/08/18 00:00 IMPRESSION: NO EVIDENCE DVT OR SVT IN THE RIGHT LEG. Status: Imported from PACS Assessment & Plan - Diagnosis (1) Appendicitis Qualifiers: Acute appendicitis type: with localized peritonitis Is this a current diagnosis for this admission?: Yes Plan: Management per surgery Currently on Flagyl and Levaquin Per Dr. Gmoez - no plans for surgery at this time, continue to manage appendicitis with antibiotics The patient remains afebrile and nontoxic appearing (2) HTN (hypertension) Qualifiers: Hypertension type: essential hypertension Qualified Code(s): I10 - Essential (primary) hypertension Is this a current diagnosis for this admission?: Yes Plan: Patient endorses history of HTN Resume home dose Coreg, HCTZ, and IMDUR ASA and statin therapy (3) H/O non-ST elevation myocardial infarction (NSTEMI) Is this a current diagnosis for this admission?: Yes Plan: Hx of NSTEMI 1 year ago following prolonged lumbar fusion surgery Patient states she experienced her NSTEMI immediately postop while in PACU No stents placed, NSTEMI was managed medically EKG shows NSR, no evidence of infarct or ischemia Serial troponin<0.012, no longer trending ECHOcardiogram showed normal LVEF, mild LVH, and mild MR Cardiology consulted, they recommend placing the patient on a beta siddharth and statin, otherwise the patient is cleared for surgery (4) Diabetes Qualifiers: Diabetes mellitus type: type 2 Diabetes mellitus complication status: without complication Is this a current diagnosis for this admission?: Yes Plan: Patient endorses history of diabetes Accu-Cheks before meals at bedtime Humalog sliding scale insulin coverage (5) Diarrhea Qualifiers: Diarrhea type: unspecified type Qualified Code(s): R19.7 - Diarrhea, unspecified Is this a current diagnosis for this admission?: Yes Plan: Patient endorses daily "explosive" diarrhea x 2 weeks States she was recently treated with antibiotics for PNA (January 2018) C.diff PCR NEGATIVE and stool culture pending Stool culture negative, added Immodium PRN (6) Hypokalemia Is this a current diagnosis for this admission?: Yes Plan: Likely secondary to GI loss stemming from diarrhea IV and PO potassium replacement - Time Time Spent with patient: 15-24 minutes Medications reviewed and adjusted accordingly: Yes Anticipated discharge: Home - Inpatient Certification Based on my medical assessment, after consideration of the patient's comorbidities, presenting symptoms, or acuity I expect that the services needed warrant INPATIENT care.: Yes I certify that my determination is in accordance with my understanding of Medicare's requirements for reasonable and necessary INPATIENT services [42 CFR 412.3e].: Yes Medical Necessity: Need for IV Antibiotics - Plan Summary Plan Summary: DISCHARGE PER SURGERY
[2018-04-08] MEDS: OXYCODONE-ACETAMINOPHEN 5-325 MG TABLET PO PRN (19:58)
[2018-04-08] MEDS: CARVEDILOL 6.25 MG TABLET PO SCH (21:27)
[2018-04-08] MEDS: ATORVASTATIN CALCIUM 20 MG TABLET PO SCH (21:28)
[2018-04-08] MEDS: LEVOFLOXACIN 500 MG/D5W RTU 500 MG/100 ML RTUPB IV SCH (21:28)
[2018-04-09] MEDS: METRONIDAZOLE 500 MG/NS RTU 500 MG/100 ML RTUPB IV SCH ×5 (00:26→23:57)
[2018-04-09] MEDS: NORMAL SALINE 1000 ML 1,000 ML IV PRN (00:45)
[2018-04-09] MEDS: GABAPENTIN 400 MG CAPSULE PO SCH ×3 (05:33→22:08)
[2018-04-09] MEDS: POTASSIUM CHLORIDE 10 MEQ CAPSULE.ER PO SCH (10:51)
[2018-04-09] MEDS: CALCIUM CARBONATE 250 MG/VITAMIN D3 125 UNIT TABLET PO SCH (10:52)
[2018-04-09] MEDS: HYDROCHLOROTHIAZIDE 25 MG TABLET PO SCH (10:52)
[2018-04-09] MEDS: ISOSORBIDE MONONITRATE 30 MG TAB.ER.24H PO SCH (10:52)
[2018-04-09] MEDS: ASPIRIN 81 MG TABLET, CHEWABLE PO SCH (10:52)
[2018-04-09] MEDS: CARVEDILOL 6.25 MG TABLET PO SCH ×2 (10:52→22:07)
[2018-04-09] MEDS: OXYCODONE-ACETAMINOPHEN 5-325 MG TABLET PO PRN ×2 (11:51→22:09)
[2018-04-09] MEDS: ENOXAPARIN SODIUM INJ 30 MG/0.3 ML DISP.SYRIN SUBCUT SCH (11:51)
[2018-04-09] MEDS: INSULIN REG, HUMAN 100 UNIT/ML 3 ML VIAL (PYX) SUBCUT PRN ×3 (11:54→22:35)
--- NOTE | 2018-04-09 11:56 | PDOC PROGRESS REPORT ---
Subjective Progress Note for:: 04/09/18 Subjective:: Feels much comfortable this am. Reason For Visit: ACUTE APPENDICITICS Physical Exam Vital Signs: Temp Pulse Resp BP Pulse Ox 98.0 F 71 20 134/69 H 93 04/09/18 08:00 04/09/18 08:00 04/09/18 08:00 04/09/18 08:00 04/09/18 08:00 Intake & Output 04/08/18 04/09/18 04/10/18 06:59 06:59 06:59 Intake Total 3251 4200 Output Total 1000 2300 Balance 2251 1900 Weight 88.9 kg 90.4 kg Exam: Abd is soft with minimal RUQ tenderness Results Laboratory Results: 04/08/18 10:48 04/08/18 10:48 04/08/18 10:48 Sodium 141.9 Potassium 3.9 Chloride 108 H Carbon Dioxide 20 L Anion Gap 14 BUN 10 Creatinine 0.79 Est GFR ( Amer) > 60 Est GFR (Non-Af Amer) > 60 Glucose 163 H Calcium 8.7 Magnesium 1.6 Total Bilirubin 0.3 AST 47 H ALT 44 Alkaline Phosphatase 61 Total Protein 5.7 L Albumin 2.9 L 04/05/18 20:05 Stool - Stool - Final 04/05/18 20:05 Stool - Stool Stool Culture - Final NO SALMONELLA, SHIGELLA, CAMPYLOBACTER, OR E.COLI 0157 RECOVERED. NEGATIVE FOR SHIGA TOXINS 1&2. 04/05/18 04/05/18 04/05/18 12:14 12:14 14:30 CK-MB (CK-2) 1.47 Troponin I < 0.012 NT-Pro-B Natriuret Pep Cancelled 306 04/05/18 04/06/18 18:27 00:18 CK-MB (CK-2) 1.13 0.91 Troponin I < 0.012 0.012 NT-Pro-B Natriuret Pep Impressions: Chest X-Ray 04/04/18 19:31 IMPRESSION: Chronic lung changes with no acute cardiopulmonary disease. Venous Doppler Study 04/08/18 00:00 IMPRESSION: NO EVIDENCE DVT OR SVT IN THE RIGHT LEG. Assessment & Plan - Time Time Spent with patient: 15-24 minutes - Plan Summary Plan Summary: OK to start soft diet Continue [id number] hrs then po another week
--- NOTE | 2018-04-09 16:45 | PDOC PROGRESS REPORT ---
Subjective Progress Note for:: 04/09/18 Subjective:: SAVANNAH BOLDEN is a 77 year old female with a PMH of HLD, HTN, a PMHx of an [place] one year ago, breast cancer with a LT mastectomy in 2004 and a PSHx of cholecystectomy presents with a two-week history of RLQ abdominal pain. CT abdomen/pelvis reveals appendicitis. Admitted to surgical service with hospitalist and cardiology consulting. The patient is seen on morning rounds. She is found resting in bed comfortably on room air. She states that she continues to have vague abdominal discomfort, especially to the right lower quadrant, however this continues to improve. She also reports intermittent soft bowel movements but significantly declined from previously. She denies nausea and vomiting. She does report that she was able to tolerate chicken with her dinner last night and is pleased that her diet has been further advanced today. She denies fever, chills, body aches, chest pain, palpitations, dyspnea, orthopnea. She has no new questions or concerns. No concerns per nursing. Reason For Visit: ACUTE APPENDICITICS Physical Exam Vital Signs: Temp Pulse Resp BP Pulse Ox 98.1 F 77 20 145/75 H 94 04/09/18 11:16 04/09/18 14:00 04/09/18 11:16 04/09/18 11:16 04/09/18 11:16 Intake & Output 04/08/18 04/09/18 04/10/18 06:59 06:59 06:59 Intake Total 3251 4200 200 Output Total 1000 2300 200 Balance 2251 1900 0 Weight 88.9 kg 90.4 kg General appearance: PRESENT: no acute distress, well-developed, well-nourished Head exam: PRESENT: atraumatic, normocephalic Eye exam: PRESENT: conjunctiva pink, EOMI, PERRLA. ABSENT: scleral icterus Ear exam: PRESENT: normal external ear exam Mouth exam: PRESENT: moist, tongue midline Neck exam: ABSENT: carotid bruit, JVD, lymphadenopathy, thyromegaly Respiratory exam: PRESENT: clear to auscultation herminia. ABSENT: rales, rhonchi, wheezes Cardiovascular exam: PRESENT: RRR. ABSENT: diastolic murmur, rubs, systolic murmur Pulses: PRESENT: normal dorsalis pedis pul Vascular exam: PRESENT: normal capillary refill GI/Abdominal exam: PRESENT: hyperactive bowel sounds, soft, tenderness. ABSENT : distended, guarding, mass, organolmegaly, rebound Rectal exam: PRESENT: deferred Extremities exam: PRESENT: full ROM. ABSENT: calf tenderness, clubbing, pedal edema Neurological exam: PRESENT: alert, awake, oriented to person, oriented to place , oriented to time, oriented to situation, CN II-XII grossly intact. ABSENT: motor sensory deficit Psychiatric exam: PRESENT: appropriate affect, normal mood. ABSENT: homicidal ideation, suicidal ideation Skin exam: PRESENT: dry, intact, warm. ABSENT: cyanosis, rash Results Laboratory Results: 04/08/18 10:48 04/08/18 10:48 04/05/18 20:05 Stool - Stool - Final 04/05/18 20:05 Stool - Stool Stool Culture - Final NO SALMONELLA, SHIGELLA, CAMPYLOBACTER, OR E.COLI 0157 RECOVERED. NEGATIVE FOR SHIGA TOXINS 1&2. 04/05/18 04/05/18 04/05/18 12:14 12:14 14:30 CK-MB (CK-2) 1.47 Troponin I < 0.012 NT-Pro-B Natriuret Pep Cancelled 306 04/05/18 04/06/18 18:27 00:18 CK-MB (CK-2) 1.13 0.91 Troponin I < 0.012 0.012 NT-Pro-B Natriuret Pep Impressions: Chest X-Ray 04/04/18 19:31 IMPRESSION: Chronic lung changes with no acute cardiopulmonary disease. Venous Doppler Study 04/08/18 00:00 IMPRESSION: NO EVIDENCE DVT OR SVT IN THE RIGHT LEG. Assessment & Plan - Diagnosis (1) Acute appendicitis Qualifiers: Acute appendicitis type: with localized peritonitis Qualified Code(s): K35.3 - Acute appendicitis with localized peritonitis Is this a current diagnosis for this admission?: Yes Plan: Primary plan per surgery. She is currently on Flagyl and Levaquin; per Dr. Gomez's notes, will continue on IV antibiotics for another 2-3 days followed by 1 week of oral antibiotics. Her diet has been advanced today, appears to be tolerating well. (2) Diabetes Qualifiers: Diabetes mellitus type: type 2 Diabetes mellitus prison insulin use: without prison use Diabetes mellitus complication status: without complication Qualified Code(s): E11.9 - Type 2 diabetes mellitus without complications Is this a current diagnosis for this admission?: Yes Plan: Holding oral antidiabetic medications while inpatient. Patient is placed on a consistent carb diet; advancing per surgeries recommendations. Accu-Cheks before meals and at bedtime with Humalog for sliding scale coverage. (3) HTN (hypertension) Qualifiers: Hypertension type: essential hypertension Qualified Code(s): I10 - Essential (primary) hypertension Is this a current diagnosis for this admission?: Yes Plan: Blood pressures are acceptable today; 116/64 - 145/75. Continue carvedilol 6.25 mg twice daily, Imdur 30 mg daily, hydrochlorothiazide 25 mg daily (4) H/O non-ST elevation myocardial infarction (NSTEMI) Is this a current diagnosis for this admission?: Yes Plan: The patient reports a history of non-STEMI 1 year ago following a prolonged lumbar fusion surgery. Patient reports that the only postop while still in the PACU. Her non-STEMI was medically managed at that time. EKG shows NSR, no evidence of infarct or ischemia Serial troponin<0.012, no longer trending ECHOcardiogram showed normal LVEF, mild LVH, and mild MR Cardiology consulted; appreciate their evaluation patient's. The patient has been placed on beta-siddharth, aspirin and statin therapy per there recommendations. (5) Diarrhea Qualifiers: Diarrhea type: unspecified type Qualified Code(s): R19.7 - Diarrhea, unspecified Is this a current diagnosis for this admission?: Yes Plan: Improved; secondary to acute appendicitis. C. difficile PCR is negative. Stool culture is negative. (6) Coronary artery disease Qualifiers: Coronary Disease-Associated Artery/Lesion type: craig artery [place] vs. transplanted heart: craig heart Associated angina: without angina Qualified Code(s): I25.10 - Atherosclerotic heart disease of craig coronary artery without angina pectoris Is this a current diagnosis for this admission?: Yes Plan: Continue aspirin and statin therapy. Remaining plan as above. (7) Hypokalemia Is this a current diagnosis for this admission?: Yes Plan: Resolved. Secondary to poor p.o. intake and GI losses related to copious amounts of diarrhea. We will continue to monitor and replace as necessary. - Time Time Spent with patient: Less than 15 minutes Medications reviewed and adjusted accordingly: Yes Anticipated discharge: Home Within: Other - Surgery's discretion.
[2018-04-09] MEDS: LEVOFLOXACIN 500 MG/D5W RTU 500 MG/100 ML RTUPB IV SCH (22:03)
[2018-04-09] MEDS: ATORVASTATIN CALCIUM 20 MG TABLET PO SCH (22:08)
[2018-04-09] MEDS ORDERED: INSULIN REG, HUMAN 100 UNIT/ML 3 ML VIAL (PYX) ONE (22:34)
[2018-04-10] MEDS: NORMAL SALINE 1000 ML 1,000 ML IV PRN ×2 (03:16→17:01)
[2018-04-10] MEDS: METRONIDAZOLE 500 MG/NS RTU 500 MG/100 ML RTUPB IV SCH ×3 (05:59→17:01)
[2018-04-10] MEDS: GABAPENTIN 400 MG CAPSULE PO SCH ×3 (05:59→23:36)
[2018-04-10] MEDS: OXYCODONE-ACETAMINOPHEN 5-325 MG TABLET PO PRN ×2 (07:50→18:32)
--- NOTE | 2018-04-10 08:33 | PDOC PROGRESS REPORT ---
Subjective Progress Note for:: 04/10/18 Subjective:: 77 y/o F with acute appendicitis. The pt has been admitted for approximately 6 days now. She has received cardiac clearance for surgery. She still has pain in her RLQ with palpation. She denies fevers, chills, nausea, vomiting, CP, SOB, dizziness, orthostasis. She does report diarrhea and RLQ abdominal pain. Reason For Visit: ACUTE APPENDICITICS Physical Exam Vital Signs: Temp Pulse Resp BP Pulse Ox 98.1 F 65 19 155/69 H 93 04/10/18 07:27 04/10/18 07:27 04/10/18 07:27 04/10/18 07:27 04/10/18 07:27 Intake & Output 04/09/18 04/10/18 04/11/18 06:59 06:59 06:59 Intake Total 4200 770 Output Total 2300 800 Balance 1900 -30 Weight 90.4 kg 90 kg General appearance: PRESENT: no acute distress Head exam: PRESENT: atraumatic, normocephalic Eye exam: PRESENT: EOMI, PERRLA Mouth exam: PRESENT: neck supple Neck exam: ABSENT: meningismus, tenderness, thyromegaly, tracheal deviation Cardiovascular exam: PRESENT: RRR Vascular exam: PRESENT: normal capillary refill. ABSENT: pallor GI/Abdominal exam: PRESENT: guarding - voluntary, soft, tenderness - RLQ. ABSENT: distended Rectal exam: PRESENT: deferred Extremities exam: ABSENT: clubbing, joint swelling Musculoskeletal exam: ABSENT: deformity Neurological exam: PRESENT: alert, awake, oriented to person, oriented to place , oriented to time, oriented to situation Psychiatric exam: ABSENT: agitated, anxious, depressed Focused psych exam: ABSENT: delusional Skin exam: ABSENT: cyanosis, erythema, jaundice Results Laboratory Results: 04/08/18 10:48 04/08/18 10:48 04/05/18 04/05/18 04/05/18 12:14 12:14 14:30 CK-MB (CK-2) 1.47 Troponin I < 0.012 NT-Pro-B Natriuret Pep Cancelled 306 04/05/18 04/06/18 18:27 00:18 CK-MB (CK-2) 1.13 0.91 Troponin I < 0.012 0.012 NT-Pro-B Natriuret Pep Impressions: Chest X-Ray 04/04/18 19:31 IMPRESSION: Chronic lung changes with no acute cardiopulmonary disease. Venous Doppler Study 04/08/18 00:00 IMPRESSION: NO EVIDENCE DVT OR SVT IN THE RIGHT LEG. Assessment & Plan - Diagnosis (1) Acute appendicitis Qualifiers: Acute appendicitis type: with localized peritonitis Qualified Code(s): K35.3 - Acute appendicitis with localized peritonitis Is this a current diagnosis for this admission?: Yes - Plan Summary Plan Summary: This is a 77 y/o F with acute appendicitis. She has been receiving antibiotics for 6 days and still experiences RLQ pain. She has a CT that I have reviewed, confirming acute appendicitis. I have discussed nonoperative management, and its 27% failure rate. The pt is unwilling to accept a failure rate as high as 27 %, and has requested surgical intervention be performed. Cardiac clearance has been obtained. Will plan for laparoscopic appendectomy today. Risks/benefits discussed, informed consent obtained, and all questions answered.
[2018-04-10] MEDS ORDERED: ACETAMINOPHEN 1,000 MG/100 ML RTUPB IV ONE (09:11)
[2018-04-10] MEDS ORDERED: FENTANYL CITRATE INJ/PF 250 MCG/5 ML AMPULE ONE (09:11)
[2018-04-10] MEDS ORDERED: PROPOFOL INJ 200 MG/20 ML VIAL IV ONE (09:11)
[2018-04-10] MEDS ORDERED: MIDAZOLAM 2 MG/2 ML INJ ONE (09:11)
[2018-04-10] MEDS: HYDROCHLOROTHIAZIDE 25 MG TABLET PO SCH (09:26)
[2018-04-10] MEDS: POTASSIUM CHLORIDE 10 MEQ CAPSULE.ER PO SCH (09:26)
[2018-04-10] MEDS: CARVEDILOL 6.25 MG TABLET PO SCH ×2 (09:27→23:36)
[2018-04-10] MEDS: CALCIUM CARBONATE 250 MG/VITAMIN D3 125 UNIT TABLET PO SCH (09:27)
[2018-04-10] MEDS: ISOSORBIDE MONONITRATE 30 MG TAB.ER.24H PO SCH (09:27)
[2018-04-10] MEDS ORDERED: BUPIVACAINE HCL 0.25 % INJ/PF (2.5 MG/1 ML) 30 ML VIAL ONE (09:30)
[2018-04-10] MEDS: ASPIRIN 81 MG TABLET, CHEWABLE PO SCH (09:32)
[2018-04-10] MEDS: ENOXAPARIN SODIUM INJ 30 MG/0.3 ML DISP.SYRIN SUBCUT SCH (09:33)
[2018-04-10 10:08] LABS: ABSOLUTE EOSINOPHILS # (AUTO) 0.1 10^3/uL (0.0-0.6); ABSOLUTE LYMPHOCYTES (AUTO) 1.1 10^3/uL (0.5-4.7); ABSOLUTE MONOCYTES (AUTO) 0.3 10^3/uL (0.1-1.4); ABSOLUTE NEUT (AUTO) 3.5 10^3/uL (1.7-8.2); BASOPHILS % (AUTO) 0.8 % (0-2); EOSINOPHILS % (AUTO) 2.4 % (0-6); HEMATOCRIT 35.2 % (36.0-47.0); HEMOGLOBIN 11.5 g/dL (12.0-15.5); LYMPHOCYTES % (AUTO) 21.6 % (13-45); MEAN CORPUSCULAR HEMOGLOBIN 28.5 pg (27.0-33.4); MEAN CORPUSCULAR HGB CONC 32.7 g/dL (32.0-36.0); MEAN CORPUSCULAR VOLUME 87 fl (80-97); MONOCYTES % (AUTO) 5.9 % (3-13); PLATELET COUNT 190 10^3/uL (150-450); RED BLOOD COUNT 4.04 10^6/uL (3.72-5.28); RED CELL DISTRIBUTION WIDTH 15.7 % (11.5-14.0); SEGMENTED NEUTROPHILS % (AUTO) 69.3 % (42-78); TOTAL CELLS COUNTED % (AUTO) 100 %; WHITE BLOOD COUNT 5.1 10^3/uL (4.0-10.5)
[2018-04-10 10:09] LABS: INTERNATIONAL RATION (INR) 1.03; PARTIAL THROMBOPLASTIN TIME 28.5 SEC (23.5-35.8)
[2018-04-10 10:21] LABS: ALANINE AMINOTRANSFERASE 53 U/L (9-52); ALKALINE PHOSPHATASE 67 U/L (38-126); ANION GAP 11 (5-19); ASPARTATE AMINO TRANSFERASE 50 U/L (14-36); BILIRUBIN,DIRECT 0.2 mg/dL (0.0-0.4); BILIRUBIN,TOTAL 0.3 mg/dL (0.2-1.3); BLOOD UREA NITROGEN 10 mg/dL (7-20); CALCIUM 9.2 mg/dL (8.4-10.2); CARBON DIOXIDE 23 mmol/L (22-30); CHLORIDE 109 mmol/L (98-107); GLUCOSE 131 mg/dL (75-110); POTASSIUM 3.9 mmol/L (3.6-5.0); SODIUM 143.2 mmol/L (137-145); TOTAL PROTEIN 5.7 g/dL (6.3-8.2)
[2018-04-10] MEDS ORDERED: MORPHINE SULFATE 10 MG/ML INJ IV PRN ×2 (10:48→11:42)
[2018-04-10] MEDS ORDERED: DIPHENHYDRAMINE HCL 50 MG/ML VIAL IV PRN (10:48)
[2018-04-10] MEDS ORDERED: FENTANYL CITRATE INJ/PF 100 MCG/2 ML AMPUL IV PRN ×3 (10:48)
[2018-04-10] MEDS ORDERED: MEPERIDINE HCL/PF INJ 25 MG/1 ML DISP.SYRIN IV PRN (10:48)
[2018-04-10] MEDS ORDERED: PROMETHAZINE HCL INJ 25 MG/1 ML VIAL IV PRN (10:48)
--- NOTE | 2018-04-10 14:26 | Operative Report ---
Nonrecallable Operative Report DATE OF SURGERY: 04/10/18 PREOPERATIVE DIAGNOSIS: Acute appendicitis POSTOPERATIVE DIAGNOSIS: Acute perforated appendicitis with periappendiceal abscess OPERATION: Laparoscopic appendectomy SURGEON: KATHLEEN CAANLES ANESTHESIA: GA TISSUE REMOVED OR ALTERED: Appendix COMPLICATIONS: Periappendiceal abscess cavity identified in the mesentery of the small intestine. ESTIMATED BLOOD LOSS: Minimal PROCEDURE: Drains/implants: 15 [place] round Joseph drain to the lower quadrant abscess cavity. Procedure in detail: After informed consent was obtained, the patient was brought into the operating room and laid in the supine position. The area of the abdomen was prepped and draped in normal sterile fashion. A supraumbilical incision was created with a 15 blade scalpel. Dissection was carried down to the fascia using blunt means. The linea alba fascia was incised sharply. The abdomen was entered sharply. The balloon trocar was inserted, and pneumoperitoneum was achieved. A suprapubic 5 mm trocar was placed under direct laparoscopic visualization. Another left lower quadrant 5 mm trocar was placed in similar fashion. Atraumatic graspers were placed through the 5 mm ports. The cecum was easily identified. The small bowel was found to be densely adherent to the cecum. The base of the appendix was identified, however the body of the appendix was folded and densely adherent to the mesentery of the small intestine. With great care the appendix was teased free from the cecum and small bowel mesentery. While performing this maneuver, a mesenteric abscess was identified in the periappendiceal soft tissues. There was frankly purulent material present. This was suctioned. The appendix was freed from the surrounding soft tissues very carefully. This was done with blunt and sharp dissection. Once the appendix was completely freed, it was elevated anteriorly. The mesoappendix was taken down using the harmonic scalpel. The base of the appendix was encircled with 2 PDS Endoloops. The appendix was amputated with the harmonic scalpel and placed into an Endo Catch bag. The appendix was removed from the abdomen. The camera was reinserted. The abdomen was inspected. There was no bleeding in the right lower quadrant. A 15 [place] round Joseph drain was then inserted through the left lower quadrant trocar and placed into the abscess cavity. The drain was sutured into place using 2-0 nylon suture. The trochars were then removed, and pneumoperitoneum was relieved. The supraumbilical fascia was closed using 0 Vicryl suture in [id number] fashion. The overlying skin was closed using 4-0 Vicryl Rapide suture in subcuticular fashion. All sponge, instrument, and needle counts were correct 2. Condition: Stable.
[2018-04-10] MEDS: INSULIN REG, HUMAN 100 UNIT/ML 3 ML VIAL (PYX) SUBCUT PRN (17:01)
--- NOTE | 2018-04-10 17:43 | PDOC PROGRESS REPORT ---
Subjective Progress Note for:: 04/10/18 Subjective:: SAVANNAH BOLDEN is a 77 year old female with a PMH of HLD, HTN, a PMHx of an [place] one year ago, breast cancer with a LT mastectomy in 2004 and a PSHx of cholecystectomy presents with a two-week history of RLQ abdominal pain. CT abdomen/pelvis reveals appendicitis. Admitted to surgical service with hospitalist and cardiology consulting. The patient was seen on afternoon rounds. She was found resting in bed comfortably on supplemental oxygen via nasal cannula at 3 L/min. She is awake but drowsy following her appendectomy this morning. The patient reports that she was able to tolerate a regular diet this afternoon without worsened abdominal pain, nausea or vomiting. She denies headache, dizziness, chest pain, palpitations, dyspnea, orthopnea at present. She has no new questions or concerns. No concerns per nursing. Reason For Visit: ACUTE APPENDICITICS Physical Exam Vital Signs: Temp Pulse Resp BP Pulse Ox 97.4 F 71 17 116/70 94 04/10/18 15:37 04/10/18 15:37 04/10/18 15:37 04/10/18 15:37 04/10/18 15:37 Intake & Output 04/09/18 04/10/18 04/11/18 06:59 06:59 06:59 Intake Total 4200 770 1700 Output Total 2300 800 215 Balance 1900 -30 1485 Weight 90.4 kg 90 kg General appearance: PRESENT: no acute distress, cooperative - Very pleasant, obese, well-developed, well-nourished Head exam: PRESENT: atraumatic, normocephalic Eye exam: PRESENT: conjunctiva pink, EOMI, PERRLA. ABSENT: scleral icterus Ear exam: PRESENT: normal external ear exam Mouth exam: PRESENT: moist, tongue midline Neck exam: ABSENT: carotid bruit, JVD, lymphadenopathy, thyromegaly Respiratory exam: PRESENT: clear to auscultation hemrinia, symmetrical, unlabored. ABSENT: rales, rhonchi, wheezes Cardiovascular exam: PRESENT: RRR, +S1, +S2. ABSENT: diastolic murmur, rubs, systolic murmur Pulses: PRESENT: normal dorsalis pedis pul Vascular exam: PRESENT: normal capillary refill GI/Abdominal exam: PRESENT: normal bowel sounds, soft, tenderness, other - ELLA drain. ABSENT: distended, guarding, mass, organolmegaly, rebound Rectal exam: PRESENT: deferred Extremities exam: PRESENT: full ROM. ABSENT: calf tenderness, clubbing, pedal edema Neurological exam: PRESENT: alert, awake, oriented to person, oriented to place , oriented to time, oriented to situation, CN II-XII grossly intact, other - Drowsy. ABSENT: motor sensory deficit Psychiatric exam: PRESENT: appropriate affect, normal mood. ABSENT: homicidal ideation, suicidal ideation Skin exam: PRESENT: dry, intact, warm. ABSENT: cyanosis, rash Results Laboratory Results: 04/10/18 09:49 04/10/18 09:49 04/10/18 04/10/18 09:49 09:49 WBC 5.1 RBC 4.04 Hgb 11.5 L Hct 35.2 L MCV 87 MCH 28.5 MCHC 32.7 RDW 15.7 H Plt Count 190 Seg Neutrophils % 69.3 Lymphocytes % 21.6 Monocytes % 5.9 Eosinophils % 2.4 Basophils % 0.8 Absolute Neutrophils 3.5 Absolute Lymphocytes 1.1 Absolute Monocytes 0.3 Absolute Eosinophils 0.1 Absolute Basophils 0.0 Sodium 143.2 Potassium 3.9 Chloride 109 H Carbon Dioxide 23 Anion Gap 11 BUN 10 Creatinine 0.72 Est GFR ( Amer) > 60 Est GFR (Non-Af Amer) > 60 Glucose 131 H Calcium 9.2 Total Bilirubin 0.3 AST 50 H ALT 53 H Alkaline Phosphatase 67 Total Protein 5.7 L Albumin 3.0 L 04/05/18 04/05/18 04/05/18 12:14 12:14 14:30 CK-MB (CK-2) 1.47 Troponin I < 0.012 NT-Pro-B Natriuret Pep Cancelled 306 04/05/18 04/06/18 18:27 00:18 CK-MB (CK-2) 1.13 0.91 Troponin I < 0.012 0.012 NT-Pro-B Natriuret Pep Impressions: Chest X-Ray 04/04/18 19:31 IMPRESSION: Chronic lung changes with no acute cardiopulmonary disease. Venous Doppler Study 04/08/18 00:00 IMPRESSION: NO EVIDENCE DVT OR SVT IN THE RIGHT LEG. Assessment & Plan - Diagnosis (1) Acute appendicitis Qualifiers: Acute appendicitis type: with localized peritonitis Qualified Code(s): K35.3 - Acute appendicitis with localized peritonitis Is this a current diagnosis for this admission?: Yes Plan: Now s/p arthroscopic appendectomy by Dr. Sylvester Primary plan per surgery. She is currently on Flagyl and Levaquin; antibiotics per surgery's expertise. (2) Diabetes Qualifiers: Diabetes mellitus type: type 2 Diabetes mellitus senior living insulin use: without intermediate accountant use Diabetes mellitus complication status: without complication Qualified Code(s): E11.9 - Type 2 diabetes mellitus without complications Is this a current diagnosis for this admission?: Yes Plan: Holding oral antidiabetic medications while inpatient. Patient is placed on a consistent carb diet. Accu-Cheks before meals and at bedtime with Humalog for sliding scale coverage. (3) HTN (hypertension) Qualifiers: Hypertension type: essential hypertension Qualified Code(s): I10 - Essential (primary) hypertension Is this a current diagnosis for this admission?: Yes Plan: She is currently normotensive. Continue carvedilol 6.25 mg twice daily, Imdur 30 mg daily, hydrochlorothiazide 25 mg daily (4) H/O non-ST elevation myocardial infarction (NSTEMI) Is this a current diagnosis for this admission?: Yes Plan: The patient reports a history of non-STEMI 1 year ago following a prolonged lumbar fusion surgery. Patient reports that the only postop while still in the PACU. Her non-STEMI was medically managed at that time. EKG shows NSR, no evidence of infarct or ischemia Serial troponin<0.012 x4 ECHOcardiogram showed normal LVEF, mild LVH, and mild MR Cardiology consulted; appreciate their evaluation. She has been cleared for surgery. The patient has been placed on beta-siddharth, aspirin and statin therapy per there recommendations. (5) Diarrhea Qualifiers: Diarrhea type: unspecified type Qualified Code(s): R19.7 - Diarrhea, unspecified Is this a current diagnosis for this admission?: Yes Plan: Improved; secondary to acute appendicitis. C. difficile PCR is negative. Stool culture is negative. (6) Coronary artery disease Qualifiers: Coronary Disease-Associated Artery/Lesion type: [place] artery [place] vs. transplanted heart: [place] heart Associated angina: without angina Qualified Code(s): I25.10 - Atherosclerotic heart disease of [place] coronary artery without angina pectoris Is this a current diagnosis for this admission?: Yes Plan: Continue aspirin and statin therapy. Remaining plan as above. (7) Hypokalemia Is this a current diagnosis for this admission?: Yes Plan: Resolved. Secondary to poor p.o. intake and GI losses related to copious amounts of diarrhea. We will continue to monitor and replace as necessary. - Time Time Spent with patient: 15-24 minutes Medications reviewed and adjusted accordingly: Yes Anticipated discharge: Home
[2018-04-10] MEDS ORDERED: DEXAMETHASONE SOD PHOSPHATE INJ 4 MG/1 ML VIAL ONE (20:21)
[2018-04-10] MEDS ORDERED: ROCURONIUM BROMIDE INJ 50 MG/5 ML VIAL IV ONE (20:21)
[2018-04-10] MEDS ORDERED: GLYCOPYRROLATE 1 MG/5 ML SYRINGE ONE (20:21)
[2018-04-10] MEDS ORDERED: ONDANSETRON HCL INJ/PF 4 MG/2 ML SDV ONE (20:21)
[2018-04-10] MEDS ORDERED: NEOSTIGMINE METHYLSULFATE 10 MG/10 ML VIAL ONE (20:21)
[2018-04-10] MEDS ORDERED: SUCCINYLCHOLINE CHLORIDE INJ 200 MG/10 ML VIAL ONE (20:21)
[2018-04-10] MEDS: LEVOFLOXACIN 500 MG/D5W RTU 500 MG/100 ML RTUPB IV SCH (23:35)
[2018-04-10] MEDS: ATORVASTATIN CALCIUM 20 MG TABLET PO SCH (23:36)
[2018-04-11] MEDS: METRONIDAZOLE 500 MG/NS RTU 500 MG/100 ML RTUPB IV SCH ×4 (00:15→17:25)
[2018-04-11] MEDS: OXYCODONE-ACETAMINOPHEN 5-325 MG TABLET PO PRN ×3 (02:09→20:21)
[2018-04-11 05:32] LABS: HEMATOCRIT 32.2 % (36.0-47.0); HEMOGLOBIN 10.7 g/dL (12.0-15.5); MEAN CORPUSCULAR HGB CONC 33.4 g/dL (32.0-36.0); MEAN CORPUSCULAR VOLUME 87 fl (80-97); PLATELET COUNT 166 10^3/uL (150-450); RED BLOOD COUNT 3.71 10^6/uL (3.72-5.28); RED CELL DISTRIBUTION WIDTH 15.5 % (11.5-14.0); WHITE BLOOD COUNT 6.4 10^3/uL (4.0-10.5)
[2018-04-11 05:46] LABS: ANION GAP 10 (5-19); BLOOD UREA NITROGEN 12 mg/dL (7-20); CALCIUM 8.7 mg/dL (8.4-10.2); CARBON DIOXIDE 23 mmol/L (22-30); CHLORIDE 109 mmol/L (98-107); GLUCOSE 142 mg/dL (75-110); POTASSIUM 4.2 mmol/L (3.6-5.0)
[2018-04-11] MEDS: GABAPENTIN 400 MG CAPSULE PO SCH ×3 (06:17→22:16)
[2018-04-11] MEDS: INSULIN REG, HUMAN 100 UNIT/ML 3 ML VIAL (PYX) SUBCUT PRN ×4 (07:54→22:19)
[2018-04-11] MEDS ORDERED: INSULIN REG, HUMAN 100 UNIT/ML 3 ML VIAL (PYX) ONE (07:54)
[2018-04-11] MEDS: POTASSIUM CHLORIDE 10 MEQ CAPSULE.ER PO SCH (10:25)
[2018-04-11] MEDS: CALCIUM CARBONATE 250 MG/VITAMIN D3 125 UNIT TABLET PO SCH (10:25)
[2018-04-11] MEDS: CARVEDILOL 6.25 MG TABLET PO SCH (10:26)
[2018-04-11] MEDS: ISOSORBIDE MONONITRATE 30 MG TAB.ER.24H PO SCH (10:27)
[2018-04-11] MEDS: ASPIRIN 81 MG TABLET, CHEWABLE PO SCH (10:27)
[2018-04-11] MEDS: HYDROCHLOROTHIAZIDE 25 MG TABLET PO SCH (10:27)
[2018-04-11] MEDS: ENOXAPARIN SODIUM INJ 30 MG/0.3 ML DISP.SYRIN SUBCUT SCH (10:27)
--- NOTE | 2018-04-11 14:03 | PDOC PROGRESS REPORT ---
Subjective Progress Note for:: 04/11/18 Subjective:: SAVANNAH BOLDEN is a 77 year old female with a PMH of HLD, HTN, a PMHx of an [place] one year ago, breast cancer with a LT mastectomy in 2004 and a PSHx of cholecystectomy presents with a two-week history of RLQ abdominal pain. CT abdomen/pelvis reveals appendicitis. Admitted to surgical service with hospitalist and cardiology consulting. The patient was seen on morning rounds. She is found resting in bed comfortably on supplemental oxygen by nasal cannula. She reports continued right lower quadrant abdominal pain, however, notes that it is improved from prior to her appendectomy yesterday. She has tolerated a regular diet without increased pain, nausea or vomiting. She did develop urinary retention overnight and had a Mata catheter placed. She tells me the plan is for the catheter to be removed this afternoon to attempt a void trial; also states that this occurred following her previous orthopedic surgery. She denies headache, dizziness, chest pain, palpitations, dyspnea, orthopnea at present. She has no new questions or concerns. Reason For Visit: ACUTE APPENDICITICS Physical Exam Vital Signs: Temp Pulse Resp BP Pulse Ox 98.1 F 67 17 121/69 95 04/11/18 11:40 04/11/18 11:40 04/11/18 11:40 04/11/18 11:40 04/11/18 11:40 Intake & Output 04/10/18 04/11/18 04/12/18 06:59 06:59 06:59 Intake Total 770 2272 537 Output Total 800 880 287 Balance -30 1392 250 Weight 90 kg 92.1 kg General appearance: PRESENT: no acute distress, cooperative, obese, well- developed, well-nourished Head exam: PRESENT: atraumatic, normocephalic Eye exam: PRESENT: conjunctiva pink, EOMI, PERRLA. ABSENT: scleral icterus Ear exam: PRESENT: normal external ear exam Mouth exam: PRESENT: moist, tongue midline Neck exam: ABSENT: carotid bruit, JVD, lymphadenopathy, thyromegaly Respiratory exam: PRESENT: clear to auscultation herminia, symmetrical, unlabored, other - Supplemental oxygen by nasal cannula. ABSENT: rales, rhonchi, wheezes Cardiovascular exam: PRESENT: RRR, +S1, +S2. ABSENT: diastolic murmur, rubs, systolic murmur Pulses: PRESENT: normal dorsalis pedis pul Vascular exam: PRESENT: normal capillary refill GI/Abdominal exam: PRESENT: normal bowel sounds, soft, tenderness, other - ELLA drain left lower quadrant; draining a small amount of segment is fluid. Laparoscopic incision to right lower quadrant and umbilicus. Slight ecchymosis and microscopic sites. No surrounding erythema or drainage.. ABSENT: distended , guarding, mass, organolmegaly, rebound Rectal exam: PRESENT: deferred Gentrourinary exam: PRESENT: indwelling catheter Extremities exam: PRESENT: full ROM. ABSENT: calf tenderness, clubbing, pedal edema Neurological exam: PRESENT: alert, awake, oriented to person, oriented to place , oriented to time, oriented to situation, CN II-XII grossly intact. ABSENT: motor sensory deficit Psychiatric exam: PRESENT: appropriate affect, normal mood. ABSENT: homicidal ideation, suicidal ideation Skin exam: PRESENT: dry, intact, warm. ABSENT: cyanosis, rash Results Laboratory Results: 04/11/18 04:45 04/11/18 04:45 04/11/18 04/11/18 04:45 04:45 WBC 6.4 RBC 3.71 L Hgb 10.7 L Hct 32.2 L MCV 87 MCH 29.0 MCHC 33.4 RDW 15.5 H Plt Count 166 Sodium 142.0 Potassium 4.2 Chloride 109 H Carbon Dioxide 23 Anion Gap 10 BUN 12 Creatinine 0.67 Est GFR ( Amer) > 60 Est GFR (Non-Af Amer) > 60 Glucose 142 H Calcium 8.7 04/05/18 04/05/18 04/05/18 12:14 12:14 14:30 CK-MB (CK-2) 1.47 Troponin I < 0.012 NT-Pro-B Natriuret Pep Cancelled 306 04/05/18 04/06/18 04/11/18 18:27 00:18 04:45 CK-MB (CK-2) 1.13 0.91 Troponin I < 0.012 0.012 < 0.012 NT-Pro-B Natriuret Pep Impressions: Chest X-Ray 04/04/18 19:31 IMPRESSION: Chronic lung changes with no acute cardiopulmonary disease. Venous Doppler Study 04/08/18 00:00 IMPRESSION: NO EVIDENCE DVT OR SVT IN THE RIGHT LEG. Assessment & Plan - Diagnosis (1) Acute appendicitis Qualifiers: Acute appendicitis type: with localized peritonitis Qualified Code(s): K35.3 - Acute appendicitis with localized peritonitis Is this a current diagnosis for this admission?: Yes Plan: POD# [address] Sylvester Primary plan per surgery. She is currently on Flagyl and Levaquin; antibiotics per surgery's expertise. 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 Patient is placed on a consistent carb diet. Accu-Cheks before meals and at bedtime with Humalog for sliding scale coverage. (3) HTN (hypertension) Qualifiers: Hypertension type: essential hypertension Qualified Code(s): I10 - Essential (primary) hypertension Is this a current diagnosis for this admission?: Yes Plan: She is currently normotensive. Continue carvedilol 6.25 mg twice daily, Imdur 30 mg daily, hydrochlorothiazide 25 mg daily (4) H/O non-ST elevation myocardial infarction (NSTEMI) Is this a current diagnosis for this admission?: Yes Plan: The patient reports a history of non-STEMI 1 year ago following a prolonged lumbar fusion surgery. Patient reports that the only postop while still in the PACU. Her non-STEMI was medically managed at that time. EKG shows NSR, no evidence of infarct or ischemia Serial troponin<0.012 x4 ECHOcardiogram showed normal LVEF, mild LVH, and mild MR Repeat troponin following appendectomy is negative. Cardiology consulted; appreciate their evaluation. She has been cleared for surgery. The patient has been placed on beta-siddharth, aspirin and statin therapy per there recommendations. (5) Diarrhea Qualifiers: Diarrhea type: unspecified type Qualified Code(s): R19.7 - Diarrhea, unspecified Is this a current diagnosis for this admission?: Yes Plan: Resolved; secondary to acute appendicitis. C. difficile PCR is negative. Stool culture is negative. (6) Coronary artery disease Qualifiers: Coronary Disease-Associated Artery/Lesion type: [place] artery [place] vs. transplanted heart: [place] heart Associated angina: without angina Qualified Code(s): I25.10 - Atherosclerotic heart disease of [place] coronary artery without angina pectoris Is this a current diagnosis for this admission?: Yes Plan: Continue aspirin and statin therapy. Remaining plan as above. (7) Hypokalemia Is this a current diagnosis for this admission?: Yes Plan: Resolved. Secondary to poor p.o. intake and GI losses related to copious amounts of diarrhea. We will continue to monitor and replace as necessary. (8) Postoperative urinary retention Is this a current diagnosis for this admission?: Yes Plan: Mata catheter placed overnight; plans to remove catheter today begin voiding trials. - Time Time Spent with patient: 25-34 minutes Medications reviewed and adjusted accordingly: Yes Anticipated discharge: Home
[2018-04-11] MEDS ORDERED: NORMAL SALINE 1000 ML 500 ML IV ONE (16:00)
--- NOTE | 2018-04-11 22:08 | PDOC PROGRESS REPORT ---
Subjective Progress Note for:: 04/11/18 Subjective:: mild incisional pains Tolerating liquid diet Reason For Visit: ACUTE APPENDICITICS Physical Exam Vital Signs: Temp Pulse Resp BP Pulse Ox 97.6 F 78 20 135/50 H 97 04/11/18 19:25 04/11/18 19:25 04/11/18 19:25 04/11/18 19:25 04/11/18 19:25 Intake & Output 04/10/18 04/11/18 04/12/18 06:59 06:59 06:59 Intake Total 770 2272 1157 Output Total 800 880 637 Balance -30 1392 520 Weight 90 kg 92.1 kg Exam: Abd is soft with mild tenderness along incision sites. ELLA drained about 40 ccs serosanguinous fluid Results Laboratory Results: 04/11/18 04:45 04/11/18 04:45 04/11/18 04/11/18 04:45 04:45 WBC 6.4 RBC 3.71 L Hgb 10.7 L Hct 32.2 L MCV 87 MCH 29.0 MCHC 33.4 RDW 15.5 H Plt Count 166 Sodium 142.0 Potassium 4.2 Chloride 109 H Carbon Dioxide 23 Anion Gap 10 BUN 12 Creatinine 0.67 Est GFR ( Amer) > 60 Est GFR (Non-Af Amer) > 60 Glucose 142 H Calcium 8.7 04/05/18 04/05/18 04/05/18 12:14 12:14 14:30 CK-MB (CK-2) 1.47 Troponin I < 0.012 NT-Pro-B Natriuret Pep Cancelled 306 04/05/18 04/06/18 04/11/18 18:27 00:18 04:45 CK-MB (CK-2) 1.13 0.91 Troponin I < 0.012 0.012 < 0.012 NT-Pro-B Natriuret Pep Impressions: Chest X-Ray 04/04/18 19:31 IMPRESSION: Chronic lung changes with no acute cardiopulmonary disease. Venous Doppler Study 04/08/18 00:00 IMPRESSION: NO EVIDENCE DVT OR SVT IN THE RIGHT LEG. Assessment & Plan - Time Time Spent with patient: 15-24 minutes - Plan Summary Plan Summary: D/C bowers and ambulate Continue IV antibiotics Will D/C drain tomorrow and possible discharge Will advance diet
[2018-04-11] MEDS: LEVOFLOXACIN 500 MG/D5W RTU 500 MG/100 ML RTUPB IV SCH (22:10)
[2018-04-11] MEDS: ATORVASTATIN CALCIUM 20 MG TABLET PO SCH (22:16)
[2018-04-11] MEDS: CARVEDILOL 3.125 MG TABLET PO SCH (22:16)
[2018-04-12] MEDS: METRONIDAZOLE 500 MG/NS RTU 500 MG/100 ML RTUPB IV SCH (00:46)
[2018-04-12] MEDS: GABAPENTIN 400 MG CAPSULE PO SCH ×3 (06:23→21:57)
--- NOTE | 2018-04-12 10:16 | PDOC PROGRESS REPORT ---
Subjective Progress Note for:: 04/12/18 Subjective:: Feels weak and pains along drain site at LLQ Reason For Visit: ACUTE APPENDICITICS Physical Exam Vital Signs: Temp Pulse Resp BP Pulse Ox 97.7 F 70 17 179/71 H 92 04/12/18 07:36 04/12/18 07:36 04/12/18 07:36 04/12/18 07:36 04/12/18 07:36 Intake & Output 04/11/18 04/12/18 04/13/18 06:59 06:59 06:59 Intake Total 2272 1357 1700 Output Total 880 987 Balance 0347 524 2065 Weight 92.1 kg 92.4 kg Exam: Drain about 15 ccs past 24 hrs with serosanguinous fluid Abd is soft with mild tenderness LLQ Results Laboratory Results: 04/11/18 04:45 04/11/18 04:45 04/05/18 04/05/18 04/05/18 12:14 12:14 14:30 CK-MB (CK-2) 1.47 Troponin I < 0.012 NT-Pro-B Natriuret Pep Cancelled 306 04/05/18 04/06/18 04/11/18 18:27 00:18 04:45 CK-MB (CK-2) 1.13 0.91 Troponin I < 0.012 0.012 < 0.012 NT-Pro-B Natriuret Pep Impressions: Chest X-Ray 04/04/18 19:31 IMPRESSION: Chronic lung changes with no acute cardiopulmonary disease. Venous Doppler Study 04/08/18 00:00 IMPRESSION: NO EVIDENCE DVT OR SVT IN THE RIGHT LEG. Assessment & Plan - Time Time Spent with patient: 15-24 minutes - Inpatient Certification Medical Necessity: Need Close Monitoring Due to Risk of Patient Decompensation, Need For IV Fluids, Need for IV Antibiotics - Plan Summary Plan Summary: Drain pulled out Continue increase diet and activity Possible discharge tomorrow
[2018-04-12] MEDS: HYDROCHLOROTHIAZIDE 25 MG TABLET PO SCH (10:38)
[2018-04-12] MEDS: CALCIUM CARBONATE 250 MG/VITAMIN D3 125 UNIT TABLET PO SCH (10:38)
[2018-04-12] MEDS: ENOXAPARIN SODIUM INJ 30 MG/0.3 ML DISP.SYRIN SUBCUT SCH (10:39)
[2018-04-12] MEDS: CARVEDILOL 3.125 MG TABLET PO SCH ×2 (10:39→17:16)
[2018-04-12] MEDS: ASPIRIN 81 MG TABLET, CHEWABLE PO SCH (10:39)
[2018-04-12] MEDS: ISOSORBIDE MONONITRATE 30 MG TAB.ER.24H PO SCH (10:39)
[2018-04-12] MEDS: POTASSIUM CHLORIDE 10 MEQ CAPSULE.ER PO SCH (10:39)
[2018-04-12] MEDS: INSULIN REG, HUMAN 100 UNIT/ML 3 ML VIAL (PYX) SUBCUT PRN ×3 (13:13→21:57)
--- NOTE | 2018-04-12 15:05 | PDOC PROGRESS REPORT ---
Subjective Progress Note for:: 04/12/18 Subjective:: SAVANNAH BOLDEN is a 77 year old female with a PMH of HLD, HTN, a PMHx of an [place] one year ago, breast cancer with a LT mastectomy in 2004 and a PSHx of cholecystectomy presents with a two-week history of RLQ abdominal pain. CT abdomen/pelvis reveals appendicitis. Admitted to surgical service with hospitalist and cardiology consulting. The patient was seen on morning rounds. She is found sitting up to a chair, on room air, eating her lunch. She states that she is feeling much better today now that the ELLA drain has been removed. She states that she had a large bowel movement last night with improved generalized abdominal discomfort. She denies fever, chills, nausea and vomiting. She does have slight right lower quadrant tenderness, however she notes that this is much better than previously. She denies headache, dizziness, chest pain, palpitations, dyspnea, orthopnea at present. She has no new questions or concerns. No concerns per nursing. Reason For Visit: ACUTE APPENDICITICS Physical Exam Vital Signs: Temp Pulse Resp BP Pulse Ox 97.9 F 85 17 143/72 H 94 04/12/18 12:18 04/12/18 14:00 04/12/18 12:18 04/12/18 12:18 04/12/18 12:18 Intake & Output 04/11/18 04/12/18 04/13/18 06:59 06:59 06:59 Intake Total 2272 1357 1900 Output Total 880 987 450 Balance 2466 238 9841 Weight 92.1 kg 92.4 kg General appearance: PRESENT: no acute distress, cooperative, well-developed, well-nourished Head exam: PRESENT: atraumatic, normocephalic Eye exam: PRESENT: conjunctiva pink, EOMI, PERRLA. ABSENT: scleral icterus Ear exam: PRESENT: normal external ear exam Mouth exam: PRESENT: moist, tongue midline Neck exam: ABSENT: carotid bruit, JVD, lymphadenopathy, thyromegaly Respiratory exam: PRESENT: clear to auscultation herminia. ABSENT: rales, rhonchi, wheezes Cardiovascular exam: PRESENT: RRR. ABSENT: diastolic murmur, rubs, systolic murmur Pulses: PRESENT: normal dorsalis pedis pul Vascular exam: PRESENT: normal capillary refill GI/Abdominal exam: PRESENT: normal bowel sounds, soft, tenderness. ABSENT: distended, guarding, mass, organolmegaly, rebound Rectal exam: PRESENT: deferred Extremities exam: PRESENT: full ROM. ABSENT: calf tenderness, clubbing, pedal edema Neurological exam: PRESENT: alert, awake, oriented to person, oriented to place , oriented to time, oriented to situation, CN II-XII grossly intact. ABSENT: motor sensory deficit Psychiatric exam: PRESENT: appropriate affect, normal mood. ABSENT: homicidal ideation, suicidal ideation Skin exam: PRESENT: dry, intact, warm. ABSENT: cyanosis, rash Results Laboratory Results: 04/11/18 04:45 04/11/18 04:45 04/05/18 04/05/18 04/05/18 12:14 12:14 14:30 CK-MB (CK-2) 1.47 Troponin I < 0.012 NT-Pro-B Natriuret Pep Cancelled 306 04/05/18 04/06/18 04/11/18 18:27 00:18 04:45 CK-MB (CK-2) 1.13 0.91 Troponin I < 0.012 0.012 < 0.012 NT-Pro-B Natriuret Pep Impressions: Chest X-Ray 04/04/18 19:31 IMPRESSION: Chronic lung changes with no acute cardiopulmonary disease. Venous Doppler Study 04/08/18 00:00 IMPRESSION: NO EVIDENCE DVT OR SVT IN THE RIGHT LEG. Assessment & Plan - Diagnosis (1) Acute appendicitis Qualifiers: Acute appendicitis type: with localized peritonitis Qualified Code(s): K35.3 - Acute appendicitis with localized peritonitis Is this a current diagnosis for this admission?: Yes Plan: POD# [address] Sylvester Primary plan per surgery. The antibiotics have been discontinued, her diet is advanced to a normal diet, pain is well controlled. Anticipating discharge tomorrow. 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 Patient is placed on a consistent carb diet. Accu-Cheks before meals and at bedtime with Humalog for sliding scale coverage. (3) HTN (hypertension) Qualifiers: Hypertension type: essential hypertension Qualified Code(s): I10 - Essential (primary) hypertension Is this a current diagnosis for this admission?: Yes Plan: The patient was noted to be hypotensive yesterday afternoon; blood pressure of 88/56. She was provided a 500 mL of normal saline bolus and half dosing of carvedilol last night. She is now hypertensive. Will resume her home dose blood pressure medications. Continue carvedilol 6.25 mg twice daily, Imdur 30 mg daily, hydrochlorothiazide 25 mg daily (4) H/O non-ST elevation myocardial infarction (NSTEMI) Is this a current diagnosis for this admission?: Yes Plan: The patient reports a history of non-STEMI 1 year ago following a prolonged lumbar fusion surgery. Patient reports that the only postop while still in the PACU. Her non-STEMI was medically managed at that time. EKG shows NSR, no evidence of infarct or ischemia Serial troponin<0.012 x4 ECHOcardiogram showed normal LVEF, mild LVH, and mild MR Repeat troponin following appendectomy is negative. Cardiology consulted; appreciate their evaluation. She has been cleared for surgery. The patient has been placed on beta-siddharth, aspirin and statin therapy per there recommendations. (5) Diarrhea Qualifiers: Diarrhea type: unspecified type Qualified Code(s): R19.7 - Diarrhea, unspecified Is this a current diagnosis for this admission?: Yes Plan: Resolved; secondary to acute appendicitis. C. difficile PCR is negative. Stool culture is negative. (6) Coronary artery disease Qualifiers: Coronary Disease-Associated Artery/Lesion type: [place] artery [place] vs. transplanted heart: [place] heart Associated angina: without angina Qualified Code(s): I25.10 - Atherosclerotic heart disease of [place] coronary artery without angina pectoris Is this a current diagnosis for this admission?: Yes Plan: Continue aspirin and statin therapy. Remaining plan as above. (7) Hypokalemia Is this a current diagnosis for this admission?: Yes Plan: Resolved. Secondary to poor p.o. intake and GI losses related to copious amounts of diarrhea. We will continue to monitor and replace as necessary. (8) Postoperative urinary retention Is this a current diagnosis for this admission?: Yes Plan: Resolved; bowers has been removed and patient is voiding without difficulty. - Time Time Spent with patient: Less than 15 minutes Medications reviewed and adjusted accordingly: Yes Anticipated discharge: Home Within: within 24 hours
[2018-04-12] MEDS: ATORVASTATIN CALCIUM 20 MG TABLET PO SCH (21:57)
[2018-04-13] MEDS: GABAPENTIN 400 MG CAPSULE PO SCH (05:35)
[2018-04-13] MEDS: CARVEDILOL 3.125 MG TABLET PO SCH (05:36)
[2018-04-13] MEDS: ASPIRIN 81 MG TABLET, CHEWABLE PO SCH (09:02)
[2018-04-13] MEDS: HYDROCHLOROTHIAZIDE 25 MG TABLET PO SCH (09:03)
[2018-04-13] MEDS: CALCIUM CARBONATE 250 MG/VITAMIN D3 125 UNIT TABLET PO SCH (09:03)
[2018-04-13] MEDS: POTASSIUM CHLORIDE 10 MEQ CAPSULE.ER PO SCH (09:03)
[2018-04-13] MEDS: ENOXAPARIN SODIUM INJ 30 MG/0.3 ML DISP.SYRIN SUBCUT SCH (09:03)
[2018-04-13] MEDS: ISOSORBIDE MONONITRATE 30 MG TAB.ER.24H PO SCH (09:03)
--- NOTE | 2018-04-13 10:27 | PDOC DISCHARGE SUMMARY ---
General - Admit/Disc Date/PCP Admission Date/Primary Care Provider: 04/04/18 22:34 CLARITZA NAILS MD Discharge Date: 04/13/18 - Discharge Diagnosis (1) Acute appendicitis Is this a current diagnosis for this admission?: Yes - Additional Information Resuscitation Status: Full Code Discharge Diet: As Tolerated Discharge Activity: No Lifting Over 10 Pounds Prescriptions: Docusate Sodium [Colace] 100 mg PO DAILY #30 capsule Hydrochlorothiazide [Hydrodiuril 25 mg Tablet] 25 mg PO DAILY #30 tablet Oxycodone HCl/Acetaminophen [Percocet 5-325 mg Tablet] 1 tab PO Q6HP PRN #10 tablet PRN Reason: Home Medications: Aspirin [Adult Low Dose Aspirin EC] 81 mg PO DAILY 04/05/18 Calcium Carbonate/Vitamin D3 [Calcium 600-Vit D3 800 Tablet] 1 tab PO BID Carvedilol [Coreg 6.25 mg Tablet] 6.25 mg PO Q12 04/05/18 Gabapentin [Neurontin] 800 mg PO Q8 04/05/18 Isosorbide Mononitrate [Imdur 30 mg Tablet.er] 30 mg PO DAILY 04/05/18 Meloxicam [Mobic] 15 mg PO DAILYP PRN 04/05/18 Metformin HCl [Glucophage] 1,000 mg PO BIDACBS 04/05/18 Multivitamin [Multiple Vitamins] 1 tab PO DAILY 04/05/18 Oxycodone HCl/Acetaminophen [Percocet 5-325 mg Tablet] 1 tab PO Q6HP PRN Pravastatin Sodium [Pravachol] 80 mg PO QHS 04/05/18 Aspirin [Aspirin 81 mg Chewable Tablet] 81 mg PO DAILY tab.chew 04/13/18 Calcium Carbonate/Vitamin D3 [Os-Handy 250 mg with Vitamin D 125 Units] 1 tab PO DAILY tablet 04/13/18 Carvedilol [Coreg 3.125 mg Tablet] 6.25 mg PO Q12A tablet 04/13/18 Docusate Sodium [Colace] 100 mg PO DAILY #30 capsule 04/13/18 Gabapentin [Neurontin 400 mg Capsule] 800 mg PO Q8 capsule 04/13/18 Hydrochlorothiazide [Hydrodiuril 25 mg Tablet] 25 mg PO DAILY #30 tablet Oxycodone HCl/Acetaminophen [Percocet 5-325 mg Tablet] 1 tab PO Q6HP PRN #10 tablet 04/13/18 History of Present Illness History of Present Illness: SAVANNAH BOLDEN is a 77 year old female admitted with acute appendicitis, confirmed on CT scan. Patient was admitted and placed on intravenous antibiotics. Cardiac consultation was obtained. Hospital Course Hospital Course: Patient was admitted to the hospital and cardiac clearance was obtained. The patient's symptoms improved significantly and surgery was delayed. Upon evaluation patient still had pain in her right lower quadrant with palpation. Secondary to this, it was felt that surgery would be necessary. The patient was taken to the operating room for laparoscopic appendectomy. At that time a perforated appendix with a periappendiceal abscess was identified. This was cleaned and suctioned. The appendix was removed laparoscopically. A drain was left in place. Patient had transient urinary retention after surgery. 2017 the patient was ambulating, tolerating a diet, her pain was controlled, she was afebrile, and she was urinating normally. At this time it was felt she had reached maximal hospital benefit and was fit for discharge. Physical Exam Vital Signs: Temp Pulse Resp BP Pulse Ox 97.6 F 69 20 141/71 H 94 04/13/18 07:04 04/13/18 07:04 04/13/18 07:04 04/13/18 07:04 04/13/18 07:04 Intake & Output 04/12/18 04/13/18 04/14/18 06:59 06:59 06:59 Intake Total 1357 2437 Output Total 987 1250 Balance 370 1187 Weight 92.4 kg 90.9 kg Results Laboratory Results: 04/11/18 04:45 04/11/18 04:45 04/05/18 04/05/18 04/05/18 12:14 12:14 14:30 CK-MB (CK-2) 1.47 Troponin I < 0.012 NT-Pro-B Natriuret Pep Cancelled 306 04/05/18 04/06/18 04/11/18 18:27 00:18 04:45 CK-MB (CK-2) 1.13 0.91 Troponin I < 0.012 0.012 < 0.012 NT-Pro-B Natriuret Pep Impressions: Chest X-Ray 04/04/18 19:31 IMPRESSION: Chronic lung changes with no acute cardiopulmonary disease. Venous Doppler Study 04/08/18 00:00 IMPRESSION: NO EVIDENCE DVT OR SVT IN THE RIGHT LEG. Qualifiers - * PATIENT BEING DISCHARGED WITH ANY OF THE FOLLOWING DIAGNOSIS: No Plan Discharge Plan: Discharge home. Diet as tolerated. Activity: No lifting greater than 10 pounds 2 weeks from surgery. [place] 5/325 mg p.o. every 6 hours as needed pain. Follow-up with me at [facility] in 7-10 days. Time Spent: Less than 30 Minutes
[2018-04-13 11:07] VITALS: BP 144/52
--- NOTE | 2018-04-13 17:10 | PDOC PROGRESS REPORT ---
Subjective Progress Note for:: 04/13/18 Subjective:: SAVANNAH BOLDEN is a 77 year old female with a PMH of HLD, HTN, a PMHx of an [place] one year ago, breast cancer with a LT mastectomy in 2004 and a PSHx of cholecystectomy presents with a two-week history of RLQ abdominal pain. CT abdomen/pelvis reveals appendicitis. Admitted to surgical service with hospitalist and cardiology consulting. The patient was seen on morning rounds. She is found resting in bed comfortably on room air. She reports that she is feeling well, has been tolerating a regular diet, ambulating in the hallway, and is voiding and having bowel movements without difficulty. She states she is looking forward to being discharged today. She has no new questions or concerns. No concerns per nursing. Reason For Visit: ACUTE APPENDICITICS Physical Exam Vital Signs: Temp Pulse Resp BP Pulse Ox 97.6 F 69 20 144/52 H 94 04/13/18 11:05 04/13/18 11:05 04/13/18 11:05 04/13/18 11:05 04/13/18 11:05 Intake & Output 04/12/18 04/13/18 04/14/18 06:59 06:59 06:59 Intake Total 1357 2437 Output Total 987 1250 Balance 370 1187 Weight 92.4 kg 90.9 kg General appearance: PRESENT: no acute distress, cooperative - Very pleasant, well-developed, well-nourished, other - Overweight Head exam: PRESENT: atraumatic, normocephalic Eye exam: PRESENT: conjunctiva pink, EOMI, PERRLA. ABSENT: scleral icterus Ear exam: PRESENT: normal external ear exam Mouth exam: PRESENT: moist, tongue midline Neck exam: ABSENT: carotid bruit, JVD, lymphadenopathy, thyromegaly Respiratory exam: PRESENT: clear to auscultation herminia. ABSENT: rales, rhonchi, wheezes Cardiovascular exam: PRESENT: RRR. ABSENT: diastolic murmur, rubs, systolic murmur Pulses: PRESENT: normal dorsalis pedis pul Vascular exam: PRESENT: normal capillary refill GI/Abdominal exam: PRESENT: normal bowel sounds, soft, tenderness - Slight right lower quadrant tenderness; improved per patient. ABSENT: distended, guarding, mass, organolmegaly, rebound Rectal exam: PRESENT: deferred Extremities exam: PRESENT: full ROM. ABSENT: calf tenderness, clubbing, pedal edema Neurological exam: PRESENT: alert, awake, oriented to person, oriented to place , oriented to time, oriented to situation, CN II-XII grossly intact. ABSENT: motor sensory deficit Psychiatric exam: PRESENT: appropriate affect, normal mood. ABSENT: homicidal ideation, suicidal ideation Skin exam: PRESENT: dry, intact, warm. ABSENT: cyanosis, rash Results Laboratory Results: 04/11/18 04:45 04/11/18 04:45 04/05/18 04/05/18 04/05/18 12:14 12:14 14:30 CK-MB (CK-2) 1.47 Troponin I < 0.012 NT-Pro-B Natriuret Pep Cancelled 306 04/05/18 04/06/18 04/11/18 18:27 00:18 04:45 CK-MB (CK-2) 1.13 0.91 Troponin I < 0.012 0.012 < 0.012 NT-Pro-B Natriuret Pep Impressions: Chest X-Ray 04/04/18 19:31 IMPRESSION: Chronic lung changes with no acute cardiopulmonary disease. Venous Doppler Study 04/08/18 00:00 IMPRESSION: NO EVIDENCE DVT OR SVT IN THE RIGHT LEG. Assessment & Plan - Diagnosis (1) Acute appendicitis Qualifiers: Acute appendicitis type: with localized peritonitis Qualified Code(s): K35.3 - Acute appendicitis with localized peritonitis Is this a current diagnosis for this admission?: Yes Plan: POD# [address] Sylvester Primary plan per surgery. The antibiotics have been discontinued, her diet is advanced to a normal diet, pain is well controlled. Anticipating discharge today. (2) Diabetes Qualifiers: Diabetes mellitus type: type 2 Diabetes mellitus snf insulin use: without snf use Diabetes mellitus complication status: without complication Qualified Code(s): E11.9 - Type 2 diabetes mellitus without complications Is this a current diagnosis for this admission?: Yes Plan: The patient's A1c was noted to be 6.4%. I discussed with the patient recommendations for glucose control tolerance and older patients; goal of less than 8.0%. I recommended the patient hold her glimepiride until her follow-up with her primary care provider; recommend discussing discontinuing this medication permanently at that visit. May also consider dose reduction of metformin. Recommended that the patient continue following a consistent carb diet and continuing to check her blood glucose is her primary care provider has instructed her to do so in the past. (3) HTN (hypertension) Qualifiers: Hypertension type: essential hypertension Qualified Code(s): I10 - Essential (primary) hypertension Is this a current diagnosis for this admission?: Yes Plan: Acceptable blood pressures today. Continue carvedilol 6.25 mg twice daily, Imdur 30 mg daily, hydrochlorothiazide 25 mg daily. Prescriptions were placed in the patient's chart in anticipation of likely discharge today. (4) H/O non-ST elevation myocardial infarction (NSTEMI) Is this a current diagnosis for this admission?: Yes Plan: The patient reports a history of non-STEMI 1 year ago following a prolonged lumbar fusion surgery. Patient reports that the only postop while still in the PACU. Her non-STEMI was medically managed at that time. EKG shows NSR, no evidence of infarct or ischemia Serial troponin<0.012 x4 ECHOcardiogram showed normal LVEF, mild LVH, and mild MR Repeat troponin following appendectomy is negative. Cardiology was consulted for cardiac clearance. (5) Diarrhea Qualifiers: Diarrhea type: unspecified type Qualified Code(s): R19.7 - Diarrhea, unspecified Is this a current diagnosis for this admission?: Yes Plan: Resolved; secondary to acute appendicitis. C. difficile PCR is negative. Stool culture is negative. (6) Coronary artery disease Qualifiers: Coronary Disease-Associated Artery/Lesion type: squ[place] artery [place] vs. transplanted heart: squaxin heart Associated angina: without angina Qualified Code(s): I25.10 - Atherosclerotic heart disease of [place] coronary artery without angina pectoris Is this a current diagnosis for this admission?: Yes Plan: Continue aspirin and statin therapy. Remaining plan as above. (7) Hypokalemia Is this a current diagnosis for this admission?: Yes Plan: Resolved. Secondary to poor p.o. intake and GI losses related to copious amounts of diarrhea. We will continue to monitor and replace as necessary. (8) Postoperative urinary retention Is this a current diagnosis for this admission?: Yes Plan: Resolved; bowers has been removed and patient is voiding without difficulty.
== END 2018-04-13 13:23 | disposition home or self-care (01) | DRG 340 ==
LOC: ER 18:55 → EH 22:34 → 3N 04-05 02:24 → UNDODISIN 04-07 16:19
PROVIDERS: ATTEND Surgery
PROC: 0DTJ4ZZ Resection of Appendix, Percutaneous Endoscopic Approach (ICD-10-PCS; principal; 2018-04-10 10:30)
DX: K35.3 Acute appendicitis with localized peritonitis (principal); I10 Essential (primary) hypertension; I25.2 Old myocardial infarction; E11.9 Type 2 diabetes mellitus without complications; E78.5 Hyperlipidemia, unspecified; I25.10 Atherosclerotic heart disease of native coronary artery without angina pectoris; R33.8 Other retention of urine; R19.7 Diarrhea, unspecified; E87.6 Hypokalemia; Z90.49 Acquired absence of other specified parts of digestive tract; Z87.891 Personal history of nicotine dependence; Z79.82 Long term (current) use of aspirin; Z88.6 Allergy status to analgesic agent; Z79.899 Other long term (current) drug therapy; Z85.3 Personal history of malignant neoplasm of breast; Z90.12 Acquired absence of left breast and nipple
CPT/HCPCS: 00840; 36415; 71046; 74177; 80048; 80053; 81001; 82550; 82553; 82565; 82962; 83036; 83605; 83690; 83735; 83880; 84484; 85025; 85027; 85610; 85730; 87040; 87045; 87205; 87493; 88304; 93005; 93010; 93306; 93971; 99285; G8978-GP; G8979-GP; J0131; J0330; J1100; J1650; J1815; J1956; J2250; J2405; J2704; J3010; J3475; J3480; J3490; J7030; J7120

== ENCOUNTER → 2018-04-04 | Outpatient (CLI) | payer MEDICARE, OTHER ==
[~2018-04-04] MED LIST: ASPIRIN 81 MG TABLET, CHEWABLE PO SCH; ATORVASTATIN CALCIUM 20 MG TABLET PO ONE; ATORVASTATIN CALCIUM 20 MG TABLET PO SCH; CALCIUM CARBONATE 250 MG/VITAMIN D3 125 UNIT TABLET PO SCH; CARVEDILOL 6.25 MG TABLET PO ONE; CARVEDILOL 6.25 MG TABLET PO SCH; DEXTROSE 40% GEL 15 GM TUBE PO PRN; DEXTROSE 50%-WATER 25 GM/50 ML DISP.SYRIN IV PRN; ENOXAPARIN SODIUM INJ 30 MG/0.3 ML DISP.SYRIN SUBCUT SCH; GABAPENTIN 400 MG CAPSULE PO ONE; GABAPENTIN 400 MG CAPSULE PO SCH; GLUCAGON,HUMAN RECOMB 1 MG INJ IM PRN; GLUCAGON,HUMAN RECOMB 1 MG INJ SUBCUT PRN; HYDROCHLOROTHIAZIDE 25 MG TABLET PO SCH; INSULIN REG, HUMAN 100 UNIT/ML 3 ML VIAL (PYX) SUBCUT PRN; LEVOFLOXACIN 500 MG/D5W RTU 500 MG/100 ML RTUPB IV ONE; LEVOFLOXACIN 500 MG/D5W RTU 500 MG/100 ML RTUPB IV SCH; LOSARTAN POTASSIUM 50 MG TABLET PO SCH; MELOXICAM 15 MG TABLET PO PRN; METRONIDAZOLE 500 MG/NS RTU 500 MG/100 ML RTUPB IV SCH; MORPHINE SULFATE 10 MG/ML INJ IV PRN; NIFEDIPINE 30 MG TAB.ER.24 PO SCH; NORMAL SALINE 1000 ML 1,000 ML IV PRN; ONDANSETRON HCL INJ/PF 4 MG/2 ML SDV IV PRN
--- NOTE | 2018-04-04 18:24 | RADIOLOGY REPORT (SQ) ---
EXAM DESCRIPTION: CT ABD/PELVIS WITH IV ORAL COMPLETED DATE/TIME: 04/04/2018 6:01 pm REASON FOR STUDY: R10.84 GENERALIZED ABDOMINAL PAIN R10.84 GENERALIZED ABDOMINAL PAIN COMPARISON: None. TECHNIQUE: CT scan of the abdomen and pelvis performed using helical scanning technique with dynamic intravenous contrast injection. Oral contrast. Images reviewed with lung, soft tissue, and bone win dows. Reconstructed coronal and sagittal MPR images reviewed. Delayed images for evaluation of the ur inary system also acquired. All images stored on PACS. All CT scanners at this facility use dose modulation, iterative reconstruction, and/or weight based d osing when appropriate to reduce radiation dose to as low as reasonably achievable (ALARA). [facility]: Dose Right [facility]: CareDose [facility]: Dose Right [facility]: Teradose 4D [facility]: CoolSystems CONTRAST TYPE AND DOSE: contrast/concentration: Isovue 350.00 mg/ml; Total Contrast Delivered: 82.6 ml; Total Saline Delivered: 10.0 ml RENAL FUNCTION: Creatinine 1.1 RADIATION DOSE: CT Rad equipment meets quality standard of care and radiation dose reduction techniq ues were employed. CTDIvol: 14.9 - 17.9 mGy. DLP: 1742 mGy-cm.. LIMITATIONS: None. FINDINGS: LOWER CHEST: No significant findings. No nodules or infiltrates. LIVER: Normal size. No masses. No dilated ducts. SPLEEN: Normal size. No focal lesions. PANCREAS: An 11 mm cystic lesion is associated with the tail of pancreas on image 33 series 3. A 19 mm cystic lesion is seen in the neck of the pancreas on image 25 series 3. Each of these represents a simple cyst. There are no septations or associated mass. GALLBLADDER: Surgically absent. ADRENAL GLANDS: No significant masses or asymmetry. RIGHT KIDNEY AND URETER: No solid masses. There are small intrarenal calcifications likely vascular . No hydronephrosis or hydroureter. LEFT KIDNEY AND URETER: No solid masses. Small intrarenal calcifications likely vascular. No hydr onephrosis or hydroureter. AORTA AND VESSELS: Atherosclerosis. This involves the celiac and SMA as well. No aneurysm. There i s very mild ectasia of the infrarenal abdominal aorta. See images 40 and 41. Maximum diameter about 22 mm. RETROPERITONEUM: No retroperitoneal adenopathy, hemorrhage or masses. BOWEL AND PERITONEAL CAVITY: No masses or inflammatory changes. No free fluid or peritoneal masses. APPENDIX: Focal inflammatory changes associated with the appendix. Correlate for appendicitis. PELVIS: No mass. No free fluid. Normal bladder. ABDOMINAL WALL: No masses. No hernias. BONES: Rods in the lumbar spine from L3-L5 with screws through the pedicles. No osseous lesions. OTHER: No other significant finding. IMPRESSION: 1. Appendicitis. 2. There are 2 small pancreatic cysts as described. Nonspecific finding. If there is a history of pancreatitis, these could represent pseudocyst. Cystic neoplasm cannot be excluded. Consider MRI fo r further evaluation. TECHNICAL DOCUMENTATION: JOB ID: [id number] Quality ID # [id number]: Final reports with documentation of one or more dose reduction techniques (e.g., Au tomated exposure control, adjustment of the mA and/or kV according to patient size, use of iterative reconstruction technique) 2010 [employer]- All Rights Reserved Reading location - IP/workstation name: [email or web address]
--- NOTE | 2018-04-04 21:56 | PDOC H&P ---
History of Present Illness Admission Date/PCP: CLARITZA NAILS MD Patient complains of: Abdominal pain History of Present Illness: SAVANNAH BOLDEN is a 77 year old female presenting with about 10 day history of right lower quadrant abdominal pain. Patient had been suffering from a diarrheal illness for the past month with frequent episodes of nonbloody diarrhea and some abdominal discomfort. 10 days ago she began to experience right lower quadrant abdominal pain that became progressively worsened and has now been persistent for over the past week with associated nausea but no emesis and no fever. She denies any prior history of this sort of abdominal pain. She has not had a colonoscopy in about 10 years. She has had had no intestinal problems in the past. She notes that the pain is not any particularly worse today versus a week ago. It just has been persistent. She was seen by her primary care physician who referred her for a CT scan that demonstrated evidence of appendicitis. Patient does have coronary artery disease status post perioperative myocardial infarction about a year ago with spinal surgery and according to the patient, did not undergo any stent placement. However she has had no active cardiac symptoms since. She is uncertain about whether there is any family history of colon cancer but her mother did have some sort of abdominal cancer. Past Medical History Cardiac Medical History: Reports: Coronary Artery Disease, Myocardial Infarction , Hyperlipidema, Hypertension Denies: Atrial Fibrillation, Congestive Heart Failure, Peripheral Vascular Disease, Pulmonary Embolism, Heart Murmur Pulmonary Medical History: Denies: Asthma, Bronchitis, Chronic Obstructive Pulmonary Disease (COPD), Pneumonia, Respiratory Failure, Sleep Apnea, Tuberculosis Neurological Medical History: Denies: Seizures Endocrine Medical History: Reports: Diabetes Mellitus Type 2 Denies: Hyperthyroidism, Hypothyroidism Malignancy Medical History: Reports: Breast Cancer - lt masectomy NO IV BP LEFT arm Denies: Cervical Cancer, Leukemia, Lung Cancer, Ovarian Cancer GI Medical History: Denies: Crohn's Disease, Gastroesophageal Reflux Disease, Hiatal Hernia Musculoskeltal Medical History: Reports: Arthritis - all joints Denies: Fibromyalgia Psychiatric Medical History: Denies: Bipolar Disorder, Depression, Post Traumatic Stress Disorder Hematology: Denies: Anemia, Hemophilia, Sickle Cell Disease Infectious Medical History: Denies: HIV Past Surgical History Past Surgical History: Reports: Cholecystectomy - Open cholecystectomy., Mastectomy - left-sided mastectomy and sentinel node for breast cancer 2004., Orthopedic Surgery - b/l knees, back surgery Denies: Amputation, Appendectomy, Section, Colostomy, Coronary Artery Bypass Graft, Gastric Bypass Surgery, Herniorrhaphy, Hysterectomy, Pacemaker, Tonsillectomy, Tubal Ligation Social History Smoking Status: Former Smoker - Quit 10 years ago Frequency of Alcohol Use: None Hx Recreational Drug Use: No Hx Prescription Drug Abuse: No Family History Family History: Reviewed & Not Pertinent Parental Family History Reviewed: Yes - Mother with abdominal cancer Children Family History Reviewed: Yes Sibling(s) Family History Reviewed.: Yes Medication/Allergy Home Medications: Aspirin [Aspirin 81 mg Chewable Tablet] 81 mg PO DAILY 02/12/18 Calcium Carbonate/Vitamin D3 [Calcium 600-Vit D3 800 Tablet] 1 tab PO BID Carvedilol [Coreg 6.25 mg Tablet] 6.25 mg PO Q12 02/12/18 Gabapentin [Neurontin] 800 mg PO Q8 02/12/18 Glimepiride [Amaryl 1 mg Tablet] 1 mg PO QAM 02/12/18 Isosorbide Mononitrate [Isosorbide Mononitrate ER] 30 mg PO DAILY 02/12/18 Meloxicam [Mobic] 15 mg PO DAILYP PRN 02/12/18 Metformin HCl [Glucophage 500 mg Tablet] 1,000 mg PO BIDACBS 02/12/18 Multivitamin [Multiple Vitamins] 1 tab PO DAILY 02/12/18 Nifedipine [Nifedipine ER] 30 mg PO DAILY 02/12/18 Pravastatin Sodium [Pravachol] 80 mg PO QHS 02/12/18 Telmisartan/Hydrochlorothiazid [Telmisartan-Hctz 80-25 mg Tab] 1 tab PO DAILY Guaifenesin [Mucinex Sr 600 mg Tablet.sa] 600 mg PO Q12 tablet.sa 02/13/18 Levofloxacin [Levaquin 750 mg Tablet] 750 mg PO DAILY #5 tablet 02/13/18 Allergies/Adverse Reactions: No Known Drug Allergies Allergy (Verified 04/04/18 18:55) surgical tape Allergy (Severe, Uncoded 04/04/18 18:55) blisters,pulls skin off Review of Systems Constitutional: PRESENT: as per HPI Gastrointestinal: PRESENT: as per HPI, abdominal pain, diarrhea, nausea Physical Exam General appearance: PRESENT: no acute distress, cooperative Eye exam: PRESENT: conjunctiva pink Respiratory exam: PRESENT: clear to auscultation herminia Cardiovascular exam: PRESENT: RRR GI/Abdominal exam: PRESENT: other - Soft, nondistended, focal tenderness to palpation in the right lower quadrant but without rebound. Positive Rovsing sign. Extremities exam: PRESENT: other - No swelling. Bilateral knee scars well- healed. Neurological exam: PRESENT: alert, awake Psychiatric exam: PRESENT: appropriate affect Skin exam: PRESENT: warm Results Impressions: Abdomen/Pelvis CT 04/04/18 15:08 IMPRESSION: 1. Appendicitis. 2. There are 2 small pancreatic cysts as described. Nonspecific finding. If there is a history of pancreatitis, these could represent pseudocyst. Cystic neoplasm cannot be excluded. Consider MRI for further evaluation. Assessment & Plan - Diagnosis (1) Appendicitis Qualifiers: Acute appendicitis type: with localized peritonitis Is this a current diagnosis for this admission?: Yes Plan: Appendicitis that has been present for about 10 days now. Upon review of the CT scan there is marked inflammatory changes around this region without free air nor free fluid nor discrete abscess. At this 10 days into her symptoms, I believe that the best treatment option for the patient would be conservative with antibiotics. Patient is not septic and certainly operative intervention at this point has potential to make her septic. Furthermore, appendectomy would be technically challenging 10 days into its course and may very well require an open operation with cecectomy. The fact that she had a perioperative myocardial infarction with her last surgery a year ago also makes me less enthusiastic about rushing into surgery. If she has any worsening while on antibiotic treatment, will plan operative intervention. Hopefully she will respond with antibiotics and she can have a colonoscopy as an outpatient to rule out atypical presentation of cecal cancer. In the meantime will obtain cardiology evaluation and will consult hospitalist to assist us in managing this patient. Will check perform stool studies to workup her diarrhea as well.
== END ==
LOC: RAD 16:08
PROVIDERS: ATTEND Internal Medicine
DX: K37 Unspecified appendicitis (principal); K86.2 Cyst of pancreas; R10.84 Generalized abdominal pain
CPT/HCPCS: 82565; 74177; A9270 ×5; J1956; J1650; J1815

== ENCOUNTER 2018-07-17 13:10 | Observation (INO) | payer MEDICARE, OTHER ==
--- NOTE | 2018-07-17 13:56 | ER Document Report ---
ED General - General Stated Complaint: GENERAL WEAKNESS Time Seen by Provider: 07/17/18 13:52 Mode of Arrival: Medic Information source: Patient, Relative, [facility] Records Notes: 78-year-old female with hypertension, hyperlipidemia, type 2 diabetes, chronic nausea and diarrhea presents via EMS after a near syncopal episode just prior to arrival. Patient states she was shopping when suddenly she became lightheaded felt faint and thought she was going to pass out. She denies falling or loss of consciousness. She states that it took several minutes for her to "get myself together". Upon arrival patient's major complaint is dizziness. Patient states that she has had chronic diarrhea for almost 3 months. She states that she has 4-5 episodes of diarrhea per day. She is scheduled to be seen by supervisor poultry processing Dr. Dudley. Patient denies preceding chest pain, shortness of breath, diaphoresis. She denies sick contacts. Patient also admits to not eating yet today. She states that she had coffee and her blood pressure medication and no other food or beverage. TRAVEL OUTSIDE OF THE [place] IN LAST 30 DAYS: No - HPI Onset: Just prior to arrival Onset/Duration: Sudden, Persistent Quality of pain: No pain Associated symptoms: Diarrhea - Chronic, Nausea - Chronic, Other - Lightheaded. denies: Chest pain, Fever, Headache, Shortness of breath Exacerbated by: Denies Relieved by: Denies Similar symptoms previously: No Recently seen / treated by doctor: Yes - Related Data Allergies/Adverse Reactions: No Known Drug Allergies Allergy (Verified 07/17/18 14:05) surgical tape Allergy (Severe, Uncoded 07/17/18 14:05) blisters,pulls skin off Past Medical History - General Information source: Patient, [facility] Records - Social History Smoking Status: Never Smoker Frequency of alcohol use: None Drug Abuse: None Lives with: Family Family History: Reviewed & Not Pertinent, Hypertension Patient has suicidal ideation: No Patient has homicidal ideation: No - Past Medical History Cardiac Medical History: Reports: Hx Heart Attack, Hx Hypercholesterolemia, Hx Hypertension Denies: Hx Atrial Fibrillation, Hx Congestive Heart Failure, Hx Coronary Artery Disease, Hx Peripheral Vascular Disease, Hx Pulmonary Embolism, Hx Heart Murmur Pulmonary Medical History: Denies: Hx Asthma, Hx Bronchitis, Hx COPD, Hx Pneumonia, Hx Respiratory Failure, Hx Sleep Apnea, Hx Tuberculosis Neurological Medical History: Denies: Hx Cerebrovascular Accident, Hx Seizures Endocrine Medical History: Reports: Hx Diabetes Mellitus Type 2. Denies: Hx Graves' Disease, Hx Hyperthyroidism, Hx Hypothyroidism Renal/ Medical History: Denies: Hx Ovarian Cysts, Hx Peritoneal Dialysis, Hx Pelvic Inflammatory Disease Malignancy Medical History: Reports: Hx Breast Cancer - L masectomy (2004). Denies: Hx Cervical Cancer, Hx Leukemia, Hx Lung Cancer, Hx Ovarian Cancer GI Medical History: Denies: Hx Crohn's Disease, Hx Gastroesophageal Reflux Disease, Hx Hiatal Hernia, Hx Irritable Bowel, Hx Liver Failure, Hx Pancreatitis , Hx Ulcer Musculoskeletal Medical History: Reports Hx Arthritis - all joints, Denies Hx Fibromyalgia, Denies Hx Muscular Dystrophy Psychiatric Medical History: Denies: Hx Bipolar Disorder, Hx Depression, Hx Post Traumatic Stress Disorder , Hx Schizophrenia Traumatic Medical History: Denies: Hx Fractures Infectious Medical History: Denies: Hx HIV Past Surgical History: Reports: Hx Cholecystectomy, Hx Mastectomy - LEFT 2004, Hx Orthopedic Surgery - b/l knees, back surgery, R SHOULDER. Denies: Hx Appendectomy, Hx Bowel Surgery, Hx Section, Hx Colostomy, Hx Coronary Artery Bypass Graft, Hx Gastric Bypass Surgery, Hx Herniorrhaphy, Hx Hysterectomy, Hx Pacemaker, Hx Tonsillectomy, Hx Tubal Ligation - Immunizations Hx Diphtheria, Pertussis, Tetanus Vaccination: - unsure Hx Pneumococcal Vaccination: 05/27/17 Review of Systems - Review of Systems Notes: REVIEW OF SYSTEMS: CONSTITUTIONAL : Denies fever, chills, or sweats. Denies recent illness. Denies weight loss, recent hospitalizations. EENT: Denies visual changes, eye pain. Denies sore throat, oral lesions, difficulty swallowing. CARDIOVASCULAR: Denies chest pain. Denies palpitations. Denies lower extremity edema. RESPIRATORY: Denies cough. Denies shortness of breath, wheezing. GASTROINTESTINAL: Denies abdominal pain or distention. Denies vomiting, Denies blood in vomitus, stools, or per rectum. Denies black, tarry stools. Denies constipation. GENITOURINARY: Denies difficulty urinating, painful urination, frequency, blood in urine, or vaginal discharge. MUSCULOSKELETAL: Denies back or neck pain or stiffness. Denies joint pain or swelling. SKIN: Denies rash, lesions or sores. HEMATOLOGIC : Denies easy bruising or bleeding. LYMPHATIC: Denies swollen glands. NEUROLOGICAL: Denies confusion or altered mental status. Denies loss of consciousness. Denies headache. Denies weakness or paralysis. Denies problems difficulty with ambulation, slurred speech. Denies sensory loss, numbness, or tingling. Denies seizures. PSYCHIATRIC: Denies anxiety or stress. Denies depression, suicidal ideation, or homicidal ideation. Denies visual or auditory hallucinations. Physical Exam - Vital signs Vitals: Resp BP Pulse Ox 14 108/65 99 07/17/18 13:23 07/17/18 13:23 07/17/18 13:23 - Notes Notes: PHYSICAL EXAMINATION: GENERAL: Well-appearing, well-nourished and in no acute distress. HEAD: Atraumatic, normocephalic. EYES: Pupils equal round and reactive to light, extraocular movements intact, conjunctiva are normal. ENT: Nares patent, oropharynx clear without exudates. dry mucous membranes. NECK: Normal range of motion, supple without lymphadenopathy LUNGS: Breath sounds clear to auscultation bilaterally and equal. No wheezes rales or rhonchi. HEART: Regular rate and rhythm without murmurs ABDOMEN: Soft, nontender, nondistended abdomen. No guarding, no rebound. No masses appreciated. Female : deferred Musculoskeletal: Normal range of motion, no pitting or edema. No cyanosis. NEUROLOGICAL: Cranial nerves grossly intact. Normal speech, normal gait. Normal sensory, motor exams PSYCH: Normal mood, normal affect. SKIN: Warm, Dry, normal turgor, no rashes or lesions noted. Course - Re-evaluation Re-evalutation: 07/17/18 16:08 Laboratory 07/17/18 07/17/18 07/17/18 13:19 13:31 13:31 WBC 6.7 RBC 4.30 Hgb 12.1 Hct 36.1 MCV 84 MCH 28.1 MCHC 33.4 RDW 16.5 H Plt Count 185 Seg Neutrophils % 69.8 Lymphocytes % 23.9 Monocytes % 5.6 Eosinophils % 0.2 Basophils % 0.5 Absolute Neutrophils 4.7 Absolute Lymphocytes 1.6 Absolute Monocytes 0.4 Absolute Eosinophils 0.0 Absolute Basophils 0.0 Sodium 137.1 Potassium 4.2 Chloride 96 L Carbon Dioxide 29 Anion Gap 12 BUN 16 Creatinine 0.73 Est GFR ( Amer) > 60 Est GFR (Non-Af Amer) > 60 Glucose 104 POC Glucose 114 H Lactic Acid Calcium 9.5 Total Bilirubin 1.1 Direct Bilirubin 0.3 Neonat Total Bilirubin Not Reportable Neonat Direct Bilirubin Not Reportable Neonat Indirect Bili Not Reportable AST 23 ALT 28 Alkaline Phosphatase 91 Creatine Kinase < 20 L CK-MB (CK-2) Troponin I Total Protein 5.7 L Albumin 3.1 L Stool Occult Blood C. difficile Tox (PCR) 07/17/18 07/17/18 07/17/18 13:31 13:55 13:55 WBC RBC Hgb Hct MCV MCH MCHC RDW Plt Count Seg Neutrophils % Lymphocytes % Monocytes % Eosinophils % Basophils % Absolute Neutrophils Absolute Lymphocytes Absolute Monocytes Absolute Eosinophils Absolute Basophils Sodium Potassium Chloride Carbon Dioxide Anion Gap BUN Creatinine Est GFR ( Amer) Est GFR (Non-Af Amer) Glucose POC Glucose Lactic Acid Calcium Total Bilirubin Direct Bilirubin Neonat Total Bilirubin Neonat Direct Bilirubin Neonat Indirect Bili AST ALT Alkaline Phosphatase Creatine Kinase CK-MB (CK-2) 0.69 Troponin I < 0.012 Total Protein Albumin Stool Occult Blood NEGATIVE C. difficile Tox (PCR) NEGATIVE 07/17/18 14:06 WBC RBC Hgb Hct MCV MCH MCHC RDW Plt Count Seg Neutrophils % Lymphocytes % Monocytes % Eosinophils % Basophils % Absolute Neutrophils Absolute Lymphocytes Absolute Monocytes Absolute Eosinophils Absolute Basophils Sodium Potassium Chloride Carbon Dioxide Anion Gap BUN Creatinine Est GFR ( Amer) Est GFR (Non-Af Amer) Glucose POC Glucose Lactic Acid 1.7 Calcium Total Bilirubin Direct Bilirubin Neonat Total Bilirubin Neonat Direct Bilirubin Neonat Indirect Bili AST ALT Alkaline Phosphatase Creatine Kinase CK-MB (CK-2) Troponin I Total Protein Albumin Stool Occult Blood C. difficile Tox (PCR) 07/17/18 16:09 78-year-old female presents via EMS after a near syncopal episode. Patient states she was shopping when she became severely lightheaded and thought she may pass out. Vital signs reviewed upon arrival and patient is normotensive although she is orthostatic positive with sitting and standing. Patient's blood pressure dropped to 70/50 with standing. Patient does appear mildly dehydrated. She is covered in diarrhea which has been a chronic problem for her for a few months now. On arrival patient was placed on corn detasseler and an EKG was obtained which showed no concerning evidence of ischemia, arrhythmia. Patient is alert and awake and complains of lightheadedness, dizziness. She has been suffering from chronic diarrhea for a few months now and is supposed to be seen by gastroenterology. Patient has a normal neurologic , physical exam. She does become dizzy when we stand. Fluid resuscitation was initiated with 2 L of LR. CBC is without leukocytosis. CMP is unremarkable. C. difficile negative. Stool negative for blood. Urinalysis consistent with urinary tract infection. Patient did receive ceftriaxone during her ED course. On reevaluation patient states that she is feeling better but I feel that with her excessive diarrhea, UTI and orthostatic hypotension she should come in for IV fluids and antibiotics and reevaluation. Patient's hypotension is likely secondary to volume depletion due to diarrhea. Patient is in agreement with admission Dr. Pradhan has accepted the patient. 07/17/18 16:09 07/17/18 16:10 07/17/18 21:21 - Vital Signs Vital signs: Temp Pulse Resp BP Pulse Ox 98.1 F 69 18 102/67 98 07/17/18 20:18 07/17/18 20:18 07/17/18 20:18 07/17/18 20:18 07/17/18 20:18 - Laboratory Result Diagrams: 07/17/18 13:31 07/17/18 13:31 Laboratory results interpreted by me: 07/17/18 07/17/18 07/17/18 13:19 13:31 13:31 RDW 16.5 H Chloride 96 L POC Glucose 114 H Creatine Kinase < 20 L Total Protein 5.7 L Albumin 3.1 L Urine Ketones Urine Blood Urine Urobilinogen Ur Leukocyte Esterase 07/17/18 16:05 RDW Chloride POC Glucose Creatine Kinase Total Protein Albumin Urine Ketones TRACE H Urine Blood MODERATE H Urine Urobilinogen 2.0 H Ur Leukocyte Esterase LARGE H - Diagnostic Test Radiology reviewed: Image reviewed, Reports reviewed - EKG Interpretation by Me EKG shows normal: Sinus rhythm Rate: Normal Rhythm: NSR When compared to previous EKG there are: No significant change Discharge - Discharge Clinical Impression: Orthostatic hypotension, Chronic diarrhea, Dizziness Urinary tract infection Qualifiers: Urinary tract infection type: site unspecified Hematuria presence: with hematuria Qualified Code(s): N39.0 - Urinary tract infection, site not specified Condition: Good Disposition: ADMITTED OBSERVATION Admitting Provider: Hospitalist Unit Admitted: Medical Floor
[2018-07-17 14:02] LABS: ABSOLUTE LYMPHOCYTES (AUTO) 1.6 10^3/uL (0.5-4.7); ABSOLUTE MONOCYTES (AUTO) 0.4 10^3/uL (0.1-1.4); ABSOLUTE NEUT (AUTO) 4.7 10^3/uL (1.7-8.2); BASOPHILS % (AUTO) 0.5 % (0-2); EOSINOPHILS % (AUTO) 0.2 % (0-6); HEMATOCRIT 36.1 % (36.0-47.0); HEMOGLOBIN 12.1 g/dL (12.0-15.5); LYMPHOCYTES % (AUTO) 23.9 % (13-45); MEAN CORPUSCULAR HEMOGLOBIN 28.1 pg (27.0-33.4); MEAN CORPUSCULAR HGB CONC 33.4 g/dL (32.0-36.0); MEAN CORPUSCULAR VOLUME 84 fl (80-97); MONOCYTES % (AUTO) 5.6 % (3-13); PLATELET COUNT 185 10^3/uL (150-450); RED CELL DISTRIBUTION WIDTH 16.5 % (11.5-14.0); SEGMENTED NEUTROPHILS % (AUTO) 69.8 % (42-78); TOTAL CELLS COUNTED % (AUTO) 100 %; WHITE BLOOD COUNT 6.7 10^3/uL (4.0-10.5)
[2018-07-17] MEDS: RINGERS SOLUTION,LACTATED 1,000 ML IV PRN ×2 (14:14→15:57)
[2018-07-17 14:24] LABS: ALANINE AMINOTRANSFERASE 28 U/L (9-52); ALBUMIN 3.1 g/dL (3.5-5.0); ALKALINE PHOSPHATASE 91 U/L (38-126); ANION GAP 12 (5-19); ASPARTATE AMINO TRANSFERASE 23 U/L (14-36); BILIRUBIN,DIRECT 0.3 mg/dL (0.0-0.4); BILIRUBIN,TOTAL 1.1 mg/dL (0.2-1.3); BLOOD UREA NITROGEN 16 mg/dL (7-20); CALCIUM 9.5 mg/dL (8.4-10.2); CARBON DIOXIDE 29 mmol/L (22-30); CHLORIDE 96 mmol/L (98-107); GLUCOSE 104 mg/dL (75-110); POTASSIUM 4.2 mmol/L (3.6-5.0); SODIUM 137.1 mmol/L (137-145); TOTAL PROTEIN 5.7 g/dL (6.3-8.2)
[2018-07-17 14:32] LABS: CREATINE KINASE < 20 U/L (30-135)
[2018-07-17 14:37] LABS: CREATINE KINASE MB 0.69 ng/mL (<4.55)
[2018-07-17 14:41] LABS: TROPONIN I < 0.012 ng/mL
--- NOTE | 2018-07-17 15:48 | EKG REPORT ---
SEVERITY:- NORMAL ECG - SINUS RHYTHM : Confirmed by: Donna Ryan MD 17-Jul-2018 15:47:47
[2018-07-17 16:35] LABS: AMORPHOUS SEDIMENT,URINE TRACE /HPF; APPEARANCE,URINE CLOUDY; BILIRUBIN,URINE NEGATIVE (NEGATIVE); COLOR,URINE AMBER; GLUCOSE, URINE NEGATIVE (NEGATIVE); KETONES,URINE TRACE mg/dL (NEGATIVE); LEUKOCYTE ESTERASE,URINE LARGE (NEGATIVE); NITRITE,URINE NEGATIVE (NEGATIVE); PROTEIN,URINE NEGATIVE (NEGATIVE); URINE SPECIFIC GRAVITY 1.014
--- NOTE | 2018-07-17 16:39 | RADIOLOGY REPORT (SQ) ---
EXAM DESCRIPTION: CHEST 2 VIEWS COMPLETED DATE/TIME: 07/17/2018 4:28 pm REASON FOR STUDY: Near syncope COMPARISON: 04/04/2018. EXAM PARAMETERS: NUMBER OF VIEWS: two views TECHNIQUE: Digital Frontal and Lateral radiographic views of the chest acquired. RADIATION DOSE: NA LIMITATIONS: none FINDINGS: LUNGS AND PLEURA: Mild hyperinflation. Chronic scarring both lung bases. Bibasilar pleur al thickening. MEDIASTINUM AND HILAR STRUCTURES: No masses or contour abnormalities. HEART AND VASCULAR STRUCTURES: Normal heart size aortic atherosclerosis. BONES: No acute findings. HARDWARE: Rods and screws from lumbar fusion. OTHER: No other significant finding. IMPRESSION: COPD. Chronic bibasilar scarring and pleural thickening. TECHNICAL DOCUMENTATION: JOB ID: [id number] 2010 [employer]- All Rights Reserved Reading location - IP/workstation name: [email or web address]
[2018-07-17] MEDS ORDERED: CEFTRIAXONE INJ 1000 MG VIAL IV ONE (17:01)
[2018-07-17] MEDS ORDERED: OXYCODONE-ACETAMINOPHEN 5-325 MG TABLET PO PRN (17:59)
--- NOTE | 2018-07-17 18:12 | PDOC H&P ---
History of Present Illness Admission Date/PCP: CLARITZA NAILS MD Patient complains of: presyncope History of Present Illness: SAVANNAH BOLDEN is a 78 year old female with a past medical history COPD, CAD, hypertension, acs-gjijghw-zzxqwpdhd diabetes mellitus and chronic back pain who was brought in because of presyncope. Patient says that he recently saw her PCP earlier today after which she went to [facility]. She says that while she was her need to be cold, she felt lightheaded and broke into sweats and felt that she was about to faint. She mentioned she had some sensation of light of flickering on her visual field. She denies any chest pain or palpitations. She denies any shortness of breath. She does states she has been having chronic diarrhea and poor intake. She says that since April, she has been having nausea, poor appetite and easy satiety. This is also associated with 1-2 episodes daily of watery, nonbloody stools. She says she only eats half a cup of soup on most days and does drink water occasionally but has very poor oral intake due to early satiety. She did not lose consciousness or had an actual syncope. She says that EMS was called from the store and she was brought in immediately to the ER. She says that she had a recent MRI that was discussed earlier today at her PCPs office and she was told that she has cystic masses on the pancreas and liver and a possible gastric mass. Patient has already been previously referred to GI. She says she has an upcoming appointment with GI after the due to her chronic diarrhea. In the ER, patient was noted to have orthostatic hypotension with a standing blood pressure of 130/80, sitting blood pressure of 91/71 and a standing blood pressure of 70/54. She was given a liter of IV fluids. Inquired about her advance directives, patient says that she is a DNR/DNI. She says that her surrogate decision maker is her . Past Medical History Cardiac Medical History: Reports: Myocardial Infarction, Hyperlipidema, Hypertension Denies: Atrial Fibrillation, Congestive Heart Failure, Coronary Artery Disease, Peripheral Vascular Disease, Pulmonary Embolism, Heart Murmur Pulmonary Medical History: Denies: Asthma, Bronchitis, Chronic Obstructive Pulmonary Disease (COPD), Pneumonia, Respiratory Failure, Sleep Apnea, Tuberculosis Neurological Medical History: Denies: Seizures Endocrine Medical History: Reports: Diabetes Mellitus Type 2 Denies: Hyperthyroidism, Hypothyroidism Malignancy Medical History: Reports: Breast Cancer - L masectomy (2004) Denies: Cervical Cancer, Leukemia, Lung Cancer, Ovarian Cancer GI Medical History: Denies: Crohn's Disease, Gastroesophageal Reflux Disease, Hiatal Hernia Musculoskeltal Medical History: Reports: Arthritis - all joints Denies: Fibromyalgia Psychiatric Medical History: Denies: Bipolar Disorder, Depression, Post Traumatic Stress Disorder Hematology: Denies: Anemia, Hemophilia, Sickle Cell Disease Infectious Medical History: Denies: HIV Past Surgical History Past Surgical History: Reports: Cholecystectomy, Mastectomy - LEFT 2004, Orthopedic Surgery - b/l knees, back surgery, R SHOULDER Denies: Amputation, Appendectomy, Section, Colostomy, Coronary Artery Bypass Graft, Gastric Bypass Surgery, Herniorrhaphy, Hysterectomy, Pacemaker, Tonsillectomy, Tubal Ligation Social History Lives with: Family Smoking Status: Never Smoker Frequency of Alcohol Use: None Hx Recreational Drug Use: No Drugs: None Hx Prescription Drug Abuse: No Family History Family History: Reviewed & Not Pertinent, Hypertension Parental Family History Reviewed: Yes - No premature CAD Children Family History Reviewed: No Sibling(s) Family History Reviewed.: No Medication/Allergy Home Medications: Meloxicam [Mobic] 15 mg PO DAILYP PRN 04/05/18 Metformin HCl [Glucophage] 1,000 mg PO BIDACBS 04/05/18 Multivitamin [Multiple Vitamins] 1 tab PO DAILY 04/05/18 Pravastatin Sodium [Pravachol] 80 mg PO QHS 04/05/18 Aspirin [Aspirin 81 mg Chewable Tablet] 81 mg PO DAILY tab.chew 04/13/18 Carvedilol [Coreg 3.125 mg Tablet] 6.25 mg PO Q12A tablet 04/13/18 Calcium Carbonate/Vitamin D3 [Os-Handy 500-Vit D3 200 Caplet] 1 tab PO BID Fluticasone/Vilanterol [Breo Ellipta 100-25 Mcg INH] 1 each IH DAILY 07/17/18 Gabapentin [Neurontin 400 mg Capsule] 600 mg PO TID 07/17/18 Glimepiride [Amaryl 1 mg Tablet] 1 mg PO QAM 07/17/18 Methocarbamol [Robaxin 500 mg Tablet] 500 mg PO BID PRN 07/17/18 Oxycodone HCl/Acetaminophen [Percocet 5-325 mg Tablet] 1 tab PO TID 07/17/18 Telmisartan/Hydrochlorothiazid [Micardis HCT 80-25 mg Tablet] 1 each PO DAILY Amox Tr/Potassium Clavulanate [Augmentin "500" Tablet] 1 tab PO Q12H 4 Days #8 tablet 07/18/18 Allergies/Adverse Reactions: No Known Drug Allergies Allergy (Verified 07/17/18 14:05) surgical tape Allergy (Severe, Uncoded 07/17/18 14:05) blisters,pulls skin off Review of Systems All systems: reviewed and no additional remarkable complaints except as stated - except as mentioned in HPI Physical Exam Vital Signs: Temp Pulse Resp BP Pulse Ox 97.5 F 66 12 135/65 H 99 07/17/18 13:25 07/17/18 13:41 07/17/18 17:21 07/17/18 17:21 07/17/18 17:21 Intake & Output 07/16/18 07/17/18 07/18/18 06:59 06:59 06:59 Intake Total 1999 Balance 1999 Weight 167 lb 12.348 oz General appearance: PRESENT: no acute distress, well-developed, well-nourished Head exam: PRESENT: atraumatic, normocephalic Eye exam: PRESENT: conjunctiva pink, EOMI, PERRLA. ABSENT: scleral icterus Ear exam: PRESENT: normal external ear exam Mouth exam: PRESENT: dry mucosa, tongue midline Neck exam: ABSENT: carotid bruit, JVD, lymphadenopathy, thyromegaly Respiratory exam: PRESENT: clear to auscultation herminia. ABSENT: rales, rhonchi, wheezes Cardiovascular exam: PRESENT: RRR. ABSENT: diastolic murmur, rubs, systolic murmur Pulses: PRESENT: normal dorsalis pedis pul GI/Abdominal exam: PRESENT: normal bowel sounds, soft. ABSENT: distended, guarding, mass, organolmegaly, rebound, tenderness Rectal exam: PRESENT: deferred Neurological exam: PRESENT: alert, awake, oriented to person, oriented to place , oriented to time, oriented to situation, CN II-XII grossly intact. ABSENT: motor sensory deficit Skin exam: PRESENT: dry Results Laboratory Results: 07/17/18 13:31 07/17/18 13:31 07/17/18 07/17/18 07/17/18 13:31 13:31 13:55 WBC 6.7 RBC 4.30 Hgb 12.1 Hct 36.1 MCV 84 MCH 28.1 MCHC 33.4 RDW 16.5 H Plt Count 185 Seg Neutrophils % 69.8 Lymphocytes % 23.9 Monocytes % 5.6 Eosinophils % 0.2 Basophils % 0.5 Absolute Neutrophils 4.7 Absolute Lymphocytes 1.6 Absolute Monocytes 0.4 Absolute Eosinophils 0.0 Absolute Basophils 0.0 Sodium 137.1 Potassium 4.2 Chloride 96 L Carbon Dioxide 29 Anion Gap 12 BUN 16 Creatinine 0.73 Est GFR ( Amer) > 60 Est GFR (Non-Af Amer) > 60 Glucose 104 Lactic Acid Calcium 9.5 Total Bilirubin 1.1 AST 23 ALT 28 Alkaline Phosphatase 91 Total Protein 5.7 L Albumin 3.1 L Urine Color Urine Appearance Urine pH Ur Specific Elton Urine Protein Urine Glucose (UA) Urine Ketones Urine Blood Urine Nitrite Ur Leukocyte Esterase Urine WBC (Auto) Urine RBC (Auto) Stool Occult Blood NEGATIVE 07/17/18 07/17/18 14:06 16:05 WBC RBC Hgb Hct MCV MCH MCHC RDW Plt Count Seg Neutrophils % Lymphocytes % Monocytes % Eosinophils % Basophils % Absolute Neutrophils Absolute Lymphocytes Absolute Monocytes Absolute Eosinophils Absolute Basophils Sodium Potassium Chloride Carbon Dioxide Anion Gap BUN Creatinine Est GFR ( Amer) Est GFR (Non-Af Amer) Glucose Lactic Acid 1.7 Calcium Total Bilirubin AST ALT Alkaline Phosphatase Total Protein Albumin Urine Color PAIGE Urine Appearance CLOUDY Urine pH 7.0 Ur Specific Elton 1.014 Urine Protein NEGATIVE Urine Glucose (UA) NEGATIVE Urine Ketones TRACE H Urine Blood MODERATE H Urine Nitrite NEGATIVE Ur Leukocyte Esterase LARGE H Urine WBC (Auto) 20 Urine RBC (Auto) 8 Stool Occult Blood 07/17/18 07/17/18 07/17/18 13:31 13:31 16:15 Creatine Kinase < 20 L CK-MB (CK-2) 0.69 Troponin I < 0.012 < 0.012 Impressions: Chest X-Ray 07/17/18 16:08 IMPRESSION: COPD. Chronic bibasilar scarring and pleural thickening. Assessment & Plan - Diagnosis (1) Pre-syncope Is this a current diagnosis for this admission?: Yes Plan: Likely secondary to orthostatic hypotension. Patient did have a positive orthostatic vital signs as mentioned. She was given a liter of fluid bolus in the ER. We will continue IV fluids with normal saline at 150 cc/h. We will continue to check orthostatic vital signs every 6 hours. (2) Orthostatic hypotension Is this a current diagnosis for this admission?: Yes Plan: Likely secondary to volume depletion from chronic diarrhea and poor oral intake. As per #1. We will hold off on antihypertensive home medications due to orthostatic hypotension. (3) Chronic diarrhea Is this a current diagnosis for this admission?: Yes Plan: C. difficile testing was negative. Patient has an upcoming follow-up with Dr. Ponce next week for further workup and evaluation of her chronic diarrhea. (4) Severe dehydration Is this a current diagnosis for this admission?: Yes Plan: As per #1. - Time Time Spent: 30 to 50 Minutes
[2018-07-17] MEDS: NORMAL SALINE 1000 ML 1,000 ML IV PRN (20:39)
[2018-07-17] MEDS ORDERED: ATORVASTATIN CALCIUM 20 MG TABLET PO SCH (22:00)
[2018-07-17] MEDS: HEPARIN SOD (PORCINE) 5,000 UNIT/ML 1 ML SYRINGE SUBCUT SCH (22:07)
[2018-07-18] MEDS: NORMAL SALINE 1000 ML 1,000 ML IV PRN (04:41)
[2018-07-18 06:24] VITALS: BP 139/59
[2018-07-18] MEDS ORDERED: ASPIRIN 81 MG TABLET, CHEWABLE PO SCH (10:00)
[2018-07-18] MEDS: HEPARIN SOD (PORCINE) 5,000 UNIT/ML 1 ML SYRINGE SUBCUT SCH (10:19)
[2018-07-18] MEDS ORDERED: AMOXICILLIN TR/POT CLAVULANATE 500-125 MG TAB PO SCH (12:15)
--- NOTE | 2018-07-18 17:30 | PDOC DISCHARGE SUMMARY ---
General - Admit/Disc Date/PCP Admission Date/Primary Care Provider: 07/17/18 18:11 CLARITZA ANILS MD Discharge Date: 07/18/18 - Discharge Diagnosis (1) Pre-syncope Is this a current diagnosis for this admission?: Yes (2) Orthostatic hypotension Is this a current diagnosis for this admission?: Yes (3) Chronic diarrhea Is this a current diagnosis for this admission?: Yes - Additional Information Resuscitation Status: Do Not Resuscitate Discharge Diet: As Tolerated Discharge Activity: Activity As Tolerated, Balance Activity w/Rest Prescriptions: Amox Tr/Potassium Clavulanate [Augmentin "500" Tablet] 1 tab PO Q12H 4 Days #8 tablet Home Medications: Meloxicam [Mobic] 15 mg PO DAILYP PRN 04/05/18 Metformin HCl [Glucophage] 1,000 mg PO BIDACBS 04/05/18 Multivitamin [Multiple Vitamins] 1 tab PO DAILY 04/05/18 Pravastatin Sodium [Pravachol] 80 mg PO QHS 04/05/18 Aspirin [Aspirin 81 mg Chewable Tablet] 81 mg PO DAILY tab.chew 04/13/18 Carvedilol [Coreg 3.125 mg Tablet] 6.25 mg PO Q12A tablet 04/13/18 Calcium Carbonate/Vitamin D3 [Os-Handy 500-Vit D3 200 Caplet] 1 tab PO BID Fluticasone/Vilanterol [Breo Ellipta 100-25 Mcg INH] 1 each IH DAILY 07/17/18 Gabapentin [Neurontin 400 mg Capsule] 600 mg PO TID 07/17/18 Glimepiride [Amaryl 1 mg Tablet] 1 mg PO QAM 07/17/18 Methocarbamol [Robaxin 500 mg Tablet] 500 mg PO BID PRN 07/17/18 Oxycodone HCl/Acetaminophen [Percocet 5-325 mg Tablet] 1 tab PO TID 07/17/18 Telmisartan/Hydrochlorothiazid [Micardis HCT 80-25 mg Tablet] 1 each PO DAILY Amox Tr/Potassium Clavulanate [Augmentin "500" Tablet] 1 tab PO Q12H 4 Days #8 tablet 07/18/18 History of Present Illness History of Present Illness: SAVANNAH BOLDEN is a 78 year old female with a past medical history COPD, CAD, hypertension, jbf-wlgktvv-vjizrvzje diabetes mellitus and chronic back pain who was brought in because of presyncope. Patient says that he recently saw her PCP earlier today after which she went to [facility]. She says that while she was her need to be cold, she felt lightheaded and broke into sweats and felt that she was about to faint. She mentioned she had some sensation of light of flickering on her visual field. She denies any chest pain or palpitations. She denies any shortness of breath. She does states she has been having chronic diarrhea and poor intake. She says that since April, she has been having nausea, poor appetite and easy satiety. This is also associated with 1-2 episodes daily of watery, nonbloody stools. She says she only eats half a cup of soup on most days and does drink water occasionally but has very poor oral intake due to early satiety. She did not lose consciousness or had an actual syncope. She says that EMS was called from the store and she was brought in immediately to the ER. She says that she had a recent MRI that was discussed earlier today at her PCPs office and she was told that she has cystic masses in the pancreas and liver and a possible gastric mass. Patient has already been previously referred to GI. She says she has an upcoming appointment with Dr. Cr after the due to her chronic diarrhea. In the ER, patient was noted to have orthostatic hypotension with a standing blood pressure of 130/80, sitting blood pressure of 91/71 and a standing blood pressure of 70/54. She was given a liter of IV fluids. Inquired about her advance directives, patient says that she is a DNR/DNI. She says that her surrogate decision maker is her . Hospital Course Hospital Course: Patient was admitted for presyncope and was found to have significant orthostatic hypotension deemed likely from volume depletion from GI losses and poor oral intake. She has chronic diarrhea and has an upcoming appt with GI for further work-up. C. difficile was negative. Her antihypertensives were held. She was given IV fluids. Her subsequent orthostatic vitals were monitored and normalized with hydration. Her troponins and EKGs were negative. Her Coreg and telmisartan were resumed on discharge but nifedipine was held. She was advised to increase oral intake and keep up with her GI losses from her chronic diarrhea. She will continue to log her blood pressures at home and advised to ff-up with PCP next week to reassess her blood pressures and adjust her antihypertensive regimen. Physical Exam Vital Signs: Temp Pulse Resp BP Pulse Ox 98.1 F 73 18 139/59 H 96 07/18/18 12:23 07/18/18 12:23 07/18/18 12:23 07/18/18 12:23 07/18/18 12:23 Intake & Output 07/17/18 07/18/18 07/19/18 06:59 06:59 06:59 Intake Total 1400 Balance 1400 Weight 151 lb 10.848 oz General appearance: PRESENT: no acute distress, well-developed, well-nourished Head exam: PRESENT: atraumatic, normocephalic Eye exam: PRESENT: conjunctiva pink, EOMI, PERRLA. ABSENT: scleral icterus Ear exam: PRESENT: normal external ear exam Mouth exam: PRESENT: moist, tongue midline Neck exam: ABSENT: carotid bruit, JVD, lymphadenopathy, thyromegaly Respiratory exam: PRESENT: clear to auscultation herminia. ABSENT: rales, rhonchi, wheezes Cardiovascular exam: PRESENT: RRR. ABSENT: diastolic murmur, rubs, systolic murmur Vascular exam: PRESENT: normal capillary refill GI/Abdominal exam: PRESENT: normal bowel sounds, soft. ABSENT: distended, guarding, mass, organolmegaly, rebound, tenderness Rectal exam: PRESENT: deferred Extremities exam: PRESENT: full ROM. ABSENT: calf tenderness, clubbing, pedal edema Neurological exam: PRESENT: alert, awake, oriented to person, oriented to place , oriented to time, oriented to situation, CN II-XII grossly intact. ABSENT: motor sensory deficit Results Impressions: Chest X-Ray 07/17/18 16:08 IMPRESSION: COPD. Chronic bibasilar scarring and pleural thickening. Qualifiers - * PATIENT BEING DISCHARGED WITH ANY OF THE FOLLOWING DIAGNOSIS: No
== END 2018-07-18 12:46 | disposition home or self-care (01) ==
LOC: ER 13:10 → UNDOADMOB 18:11 → EH 18:11 → 4S 18:58
PROVIDERS: ADMIT Internal Medicine; ATTEND Internal Medicine
DX: R55 Syncope and collapse (principal); I95.1 Orthostatic hypotension; K52.9 Noninfective gastroenteritis and colitis, unspecified; J44.9 Chronic obstructive pulmonary disease, unspecified; I25.2 Old myocardial infarction; I10 Essential (primary) hypertension; I25.10 Atherosclerotic heart disease of native coronary artery without angina pectoris; M54.9 Dorsalgia, unspecified; G89.29 Other chronic pain; E11.9 Type 2 diabetes mellitus without complications; R68.81 Early satiety; E78.5 Hyperlipidemia, unspecified; E86.0 Dehydration; N39.0 Urinary tract infection, site not specified; R31.9 Hematuria, unspecified; Z82.49 Family history of ischemic heart disease and other diseases of the circulatory system; Z79.82 Long term (current) use of aspirin; Z79.84 Long term (current) use of oral hypoglycemic drugs; Z79.899 Other long term (current) drug therapy; Z90.49 Acquired absence of other specified parts of digestive tract; Z66 Do not resuscitate; Z90.12 Acquired absence of left breast and nipple; Z85.3 Personal history of malignant neoplasm of breast
CPT/HCPCS: 93005; 99285; 96361; 96365; 36415; 87045; 87205; 82553; 82962 ×2; 82550; 85025; 82272; 80053; 81001; 84484; 87493; 83605; 71046; 93010; G0378 ×2; A9270 ×3; J1644 ×2; J0696; J7030 ×2; J7120

== ENCOUNTER 2018-09-03 13:18 | Day surgery (SDC) | payer MEDICARE, OTHER ==
[~2018-09-03 13:18] MED LIST changes: -ASPIRIN 81 MG TABLET, CHEWABLE PO SCH; -ATORVASTATIN CALCIUM 20 MG TABLET PO ONE; -ATORVASTATIN CALCIUM 20 MG TABLET PO SCH; -CALCIUM CARBONATE 250 MG/VITAMIN D3 125 UNIT TABLET PO SCH; -CARVEDILOL 6.25 MG TABLET PO ONE; -CARVEDILOL 6.25 MG TABLET PO SCH; -DEXTROSE 40% GEL 15 GM TUBE PO PRN; -DEXTROSE 50%-WATER 25 GM/50 ML DISP.SYRIN IV PRN; +DIPHENHYDRAMINE HCL 50 MG/ML VIAL ONE; -ENOXAPARIN SODIUM INJ 30 MG/0.3 ML DISP.SYRIN SUBCUT SCH; +EPINEPHRINE INJ 1 MG/10 ML DISP.SYRIN ONE; +FENTANYL CITRATE INJ/PF 100 MCG/2 ML AMPUL ONE; +FLUMAZENIL INJ 0.5 MG/5 ML VIAL ONE; -GABAPENTIN 400 MG CAPSULE PO ONE; -GABAPENTIN 400 MG CAPSULE PO SCH; -GLUCAGON,HUMAN RECOMB 1 MG INJ IM PRN; +GLUCAGON,HUMAN RECOMB 1 MG INJ ONE; -GLUCAGON,HUMAN RECOMB 1 MG INJ SUBCUT PRN; -HYDROCHLOROTHIAZIDE 25 MG TABLET PO SCH; -INSULIN REG, HUMAN 100 UNIT/ML 3 ML VIAL (PYX) SUBCUT PRN; -LEVOFLOXACIN 500 MG/D5W RTU 500 MG/100 ML RTUPB IV ONE; -LEVOFLOXACIN 500 MG/D5W RTU 500 MG/100 ML RTUPB IV SCH; -LOSARTAN POTASSIUM 50 MG TABLET PO SCH; -MELOXICAM 15 MG TABLET PO PRN; -METRONIDAZOLE 500 MG/NS RTU 500 MG/100 ML RTUPB IV SCH; +MIDAZOLAM 2 MG/2 ML INJ ONE; -MORPHINE SULFATE 10 MG/ML INJ IV PRN; +NALOXONE HCL INJ/PF 0.4 MG/1 ML SDV ONE; -NIFEDIPINE 30 MG TAB.ER.24 PO SCH; -NORMAL SALINE 1000 ML 1,000 ML IV PRN; -ONDANSETRON HCL INJ/PF 4 MG/2 ML SDV IV PRN; +ONDANSETRON HCL INJ/PF 4 MG/2 ML SDV ONE
--- NOTE | 2018-09-03 13:51 | Operative Report ---
Operative Report DATE OF SURGERY: 09/03/18 Operative Report: The risks benefits and alternatives of the procedure explained to the patient in detail and informed consent is obtained.A GIF Olympus video scope was inserted into the patient's mouth and hypopharynx, the esophagus is identified intubated and insufflated, the scope was then advanced through the esophagus stomach and duodenum, retroflexion maneuver is done, the esophagus stomach and first and second portions of the duodenum examined. PREOPERATIVE DIAGNOSIS: Abnormal CT scan, early satiety POSTOPERATIVE DIAGNOSIS: Gastric nodule at the gastric side of the EG junction status post biopsy. Gastritis status post biopsy. Duodenitis OPERATION: EGD with biopsy SURGEON: CLEM ROCHA ANESTHESIA: Moderate Sedation - 2 mg of Versed, 25 mcg of fentanyl. Conscious sedation monitoring time 30 minutes. TISSUE REMOVED OR ALTERED: As noted above. COMPLICATIONS: None. ESTIMATED BLOOD LOSS: None. INTRAOPERATIVE FINDINGS: As noted above. PROCEDURE: Patient tolerated the procedure well. No immediate postprocedure complications are noted. Patient is discharged in good condition. Discharge date 09/03/2018. Discharge diet: Regular. Discharge activity: Regular. 2-3-week follow-up to discuss findings. Patient is instructed to call the office or proceed to the emergency room should there be any further problems or questions. Wait on the pathology.
[2018-09-03] MEDS ORDERED: FENTANYL CITRATE INJ/PF 100 MCG/2 ML AMPUL ONE (14:04)
[2018-09-03 14:52] VITALS: BP 172/70
== END 2018-09-03 14:54 | disposition home or self-care (01) ==
LOC: END 13:18
PROVIDERS: ATTEND Internal Medicine Gastroenterology
DX: K29.80 Duodenitis without bleeding (principal); K29.50 Unspecified chronic gastritis without bleeding; K31.7 Polyp of stomach and duodenum; K86.2 Cyst of pancreas; R63.4 Abnormal weight loss; Z68.25 Body mass index [BMI] 25.0-25.9, adult; E78.5 Hyperlipidemia, unspecified; E11.9 Type 2 diabetes mellitus without complications; I10 Essential (primary) hypertension; Z79.82 Long term (current) use of aspirin; Z79.891 Long term (current) use of opiate analgesic; Z79.84 Long term (current) use of oral hypoglycemic drugs; Z79.51 Long term (current) use of inhaled steroids; Z79.899 Other long term (current) drug therapy
CPT/HCPCS: 43239; 82962; 88342 ×2; 88305 ×2; J2250; J3010; J0171; J1200; J1610; J2310; J2405; J3490

== ENCOUNTER → 2019-01-07 | Outpatient (CLI) | payer MEDICARE, OTHER ==
--- NOTE | 2019-01-07 13:25 | RADIOLOGY REPORT (SQ) ---
EXAM DESCRIPTION: NM GASTRIC EMPTYING STUDY COMPLETED DATE/TIME: 01/07/2019 12:48 pm REASON FOR STUDY: ANOREXIA (R63.0), NAUSEA (R11.0) R63.0 ANOREXIA COMPARISON: CT abdomen pelvis 04/04/2018 RADIONUCLIDE AND DOSE: 2.1 millicuries Tc-99m Sulfur Colloid. Technetium 99 M sulfur colloid was mixed with scrambled egg The route of agent administration: Oral. TECHNIQUE: 1 minute serial static imaging performed at time of meal, 1 hour, 2 hours, 3 hours, and 4 hours as needed. Once stomach reaches 90% emptying, the test is complete. Image intensity values plo tted with respect to time with linear regression algorithm. LIMITATIONS: None. FINDINGS: Patient was observed for 4 hours. Immediate post meal serves as baseline. Gastric emptying at 60 minutes was 26%. Gastric emptying at 90 minutes was 60%. Gastric emptying at 120 minutes was 47% Gastric emptying at 240 minutes was 100%. IMPRESSION: NORMAL GASTRIC EMPTYING. TECHNICAL DOCUMENTATION: JOB ID: [id number] [employer]- All Rights Reserved Reading location - IP/workstation name: [email or web address]
== END ==
LOC: RAD 07:19
PROVIDERS: ATTEND Internal Medicine Gastroenterology
DX: R63.0 Anorexia (principal); R11.0 Nausea
CPT/HCPCS: 78264; A9541

== ENCOUNTER 2019-04-08 08:19 | Day surgery (SDC) | payer MEDICARE, OTHER ==
[~2019-04-08 08:19] MED LIST changes: +BENZOCAINE 20% AEROSOL SPRAY 60 GM ONE
[2019-04-08] MEDS ORDERED: ONABOTULINUMTOXINA INJ/PF 100 UNIT SDV IM PRN (08:23)
[2019-04-08] MEDS ORDERED: MIDAZOLAM 2 MG/2 ML INJ IV ONE ×2 (08:36→08:40)
[2019-04-08] MEDS ORDERED: FENTANYL CITRATE INJ/PF 50 MCG/1 ML 50 ML SDV IV ONE (08:38)
--- NOTE | 2019-04-08 08:49 | Operative Report ---
Operative Report DATE OF SURGERY: 04/08/19 Operative Report: The risks benefits and alternatives of the procedure explained to the patient in detail and informed consent is obtained.A GIF Olympus video scope was inserted into the patient's mouth and hypopharynx ,the esophagus is identified intubated and insufflated, the scope was then advanced through the esophagus stomach and duodenum, retroflexion maneuver is done ,the esophagus stomach and first and second portions of the duodenum examined. PREOPERATIVE DIAGNOSIS: Nausea vomiting POSTOPERATIVE DIAGNOSIS: Gastritis status post biopsy rule out Helicobacter pylori. Injection of Botox at the gastric outlet 100 units mixed in 4 mL's 1 cc per quadrant injection OPERATION: EGD with submucosal injection SURGEON: CLEM ROCHA ANESTHESIA: LMAC - 3 mg of Versed, 25 mcg of fentanyl. Conscious sedation monitoring time 30 minutes. TISSUE REMOVED OR ALTERED: Gastric as noted COMPLICATIONS: None. ESTIMATED BLOOD LOSS: None. INTRAOPERATIVE FINDINGS: As noted above. PROCEDURE: Patient tolerated the procedure well. No immediate postprocedure complications are noted. Patient is discharged in good condition. Discharge date 04/08/2019. Discharge diet: Regular. Discharge activity: Regular. 2 to 3-week follow-up to discuss findings. Patient is instructed to call the office or proceed to the emergency room should there be any further problems or questions. Wait on the pathology.
[2019-04-08 10:02] VITALS: BP 155/64
== END 2019-04-08 10:00 | disposition home or self-care (01) ==
LOC: END 08:19
PROVIDERS: ATTEND Internal Medicine Gastroenterology
DX: K29.50 Unspecified chronic gastritis without bleeding (principal); E78.5 Hyperlipidemia, unspecified; E11.22 Type 2 diabetes mellitus with diabetic chronic kidney disease; I12.9 Hypertensive chronic kidney disease with stage 1 through stage 4 chronic kidney disease, or unspecified chronic kidney disease; N18.9 Chronic kidney disease, unspecified; Z79.899 Other long term (current) drug therapy; Z79.82 Long term (current) use of aspirin; Z79.84 Long term (current) use of oral hypoglycemic drugs
CPT/HCPCS: 43236; 43239; 82962; 88342 ×2; 88305 ×2; J2250; J3490; J3010 ×2; J0585; J0171; J1200; J1610; J2310; J2405

== ENCOUNTER → 2020-03-15 | Outpatient (CLI) | payer MEDICARE, OTHER ==
--- NOTE | 2020-03-15 12:54 | WOMENS IMAGING REPORT ---
EXAM DESCRIPTION: BONE DENSITY HIP/SPINE IMAGES COMPLETED DATE/TIME: 03/15/2020 12:10 pm REASON FOR STUDY: Z78.0 ASYMPTOMATIC MENOPAUSAL STATE Z12.31 ENCNTR SCREEN MAMMOGRAM FOR MALIGNANT NEOPLASM OF BERTO Z78.0 ASYMPTOMATIC MENOPAUSAL STATE COMPARISON: None. TECHNIQUE: Dual-Energy X-ray Absorptiometry (DEXA) of the Hip and Forearm. LIMITATIONS: None. FINDINGS: HIP: The bone mineral density (BMD) measured in the left hip correlates with a T-score of -1.0 in the femo ral neck, which is normal as defined by the World Health Organization. BMD Change vs Baseline: +2.4% FOREARM: The bone mineral density (BMD) measured in the left forearm correlates with a T-score of -1.6 which i s osteopenia as defined by the World Health Organization. BMD Change vs Baseline: -14.1% 10 year Fracture Risk Assessment: Major Osteoporotic Fracture: Not available. Hip Fracture: Not available. IMPRESSION: 1. HIP WHO CLASSIFICATION: NORMAL. 2. FOREARM WHO CLASSIFICATION: OSTEOPENIA. OVERALL ASSESSMENT: WHO CLASSIFICATION: OSTEOPENIA. COMMENT: The World Health Organization defines low BMD as follows: T-score: Normal: At or above -1.0 Osteopenia: Between -1.0 and -2.5 Osteoporosis: At or below -2.5 without fractures Established osteoporosis: At or below -2.5 with fractures In general, you may wish to consider: Diagnosis Treatment Follow-up DEXA Normal BMD Prevention 2-3 years Osteopenia Prevention/Therapy 1-2 years Osteoporosis Therapy Yearly TECHNICAL DOCUMENTATION: JOB ID: [id number] 2010 [employer]- All Rights Reserved Reading location - IP/workstation name: [email or web address]
--- NOTE | 2020-03-15 14:03 | WOMENS IMAGING REPORT ---
EXAM DESCRIPTION: 3D SCREENING MAMMO RIGHT IMAGES COMPLETED DATE/TIME: 03/15/2020 12:10 pm REASON FOR STUDY: Z12.31 ENCOUNTER FOR SCREENING MAMMOGRAM FOR MALIGNANT NEOPLASM OF BREAST Z12.31 ENCNTR SCREEN MAMMOGRAM FOR MALIGNANT NEOPLASM OF BERTO Z78.0 ASYMPTOMATIC MENOPAUSAL STATE COMPARISON: 2016 and subsequent EXAM PARAMETERS: Standard craniocaudal and mediolateral oblique views of the breast recorded using digital acquisition and breast tomosynthesis. Read with the assistance of CAD. .[facility] - [employer] Sp[employer]er Version 9.2 LIMITATIONS: None. FINDINGS: BREAST: right Findings present which are benign by mammographic criteria. No suspicious masses, calcifications or a rchitectural distortion. Pertinent benign findings: Benign predominantly vascular calcifications. Benign mammographic findings may include one or more of the following: Smooth masses, popcorn/rim/co arse calcifications, asymmetries, post-procedure changes, and lesions with long-standing stability. IMPRESSION: BENIGN FINDINGS. BIRADS 2. BREAST DENSITY: b. There are scattered areas of fibroglandular density. BIRAD: ASSESSMENT: 2 Benign Finding(s) RECOMMENDATION: RECOMMENDATION: ROUTINE SCREENING. COMMENT: The patient has been notified of the results by letter per SA requirements. Additional no tification policies are in place for contacting patient with suspicious or incomplete findings. Quality ID #[id number]: [employer] [place] [employer] recommends an annual screening mammogram for women aged 40 years or over. This facility utilizes a reminder system to ensure that all patients receive reminder letters, and/or direct phone calls for appointments. This includes reminders for routine scr eening mammograms, diagnostic mammograms, or other Breast Imaging Interventions when appropriate. Th is patient will be placed in the appropriate reminder system. TECHNICAL DOCUMENTATION: FINDING NUMBER: (1) ASSESSMENT: (1) JOB ID: [id number] [employer]- All Rights Reserved Reading location - IP/workstation name: [email or web address]
== END ==
LOC: WI 10:35
PROVIDERS: ATTEND Internal Medicine
DX: Z12.31 Encounter for screening mammogram for malignant neoplasm of breast (principal); Z78.0 Asymptomatic menopausal state
CPT/HCPCS: 77080